=== PATIENT | female | born 1990 | race Caucasian/White ===

== ENCOUNTER 2018-07-11 09:18 | Emergency (ER) | payer BC, SELFPAY ==
--- OUTSIDE RECORDS SUMMARY | 2018-07-11 09:28 | XMS REPORT ---
:1990 [facility] Address [address] [place] [address] Dr. Waters [address] [place] [id number] Care Team Providers Name Role Phone Unavailable Unavailable Unavailable Problems This patient has no known problems. Allergies, Adverse Reactions, Alerts This patient has no known allergies or adverse reactions. Medications This patient has no known medications.
--- NOTE | 2018-07-11 09:47 | EDPHYS ---
Physician Documentation [facility] Name: Marilyn Cardoza Age: 28 yrs Sex: Female : 1990 Arrival Date: 07/11/2018 Time: 09:21 Bed 20 Private MD: None, None ED Physician Marshal Gutierrez HPI: 07/11 10:00 This 28 yrs old Female presents to ER via Ambulatory with complaints of Flu snw Symptoms. 10:00 Onset: The symptoms/episode began/occurred gradually, 3 day(s) ago, and became snw persistent. Associated signs and symptoms: Pertinent positives: congestion, dysuria, nasal discharge, sore throat, Pertinent negatives: fever. Modifying factors: The patient symptoms are alleviated by nothing. It is unknown whether or not the patient has had similar symptoms in the past. The patient has not recently seen a physician. 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 - Social history:: Smoking status: Patient/guardian denies using tobacco. - Ebola Screening: : Patient denies exposure to infectious person Patient denies travel to an Ebola-affected area in the 21 days before illness onset. ROS: 09:59 Eyes: Negative for injury, pain, redness, and discharge. snw 09:59 Neck: Negative for injury, pain, and swelling, Cardiovascular: Negative for chest pain, palpitations, and edema. 09:59 Abdomen/GI: Negative for abdominal pain, nausea, vomiting, diarrhea, and constipation, Back: Negative for injury and pain, : Negative for injury, bleeding, discharge, and swelling, + dysuria (taking azo) MS/Extremity: Negative for injury and deformity, Skin: Negative for injury, rash, and discoloration, Neuro: Negative for headache, weakness, numbness, tingling, and seizure, Psych: Negative for depression, anxiety, suicide ideation, homicidal ideation, and hallucinations. 09:59 Constitutional: Positive for body aches, fatigue. 09:59 ENT: Positive for ear pain, hoarseness, sinus congestion. 09:59 Respiratory: Positive for cough. Exam: 09:48 Head/Face: Normocephalic, atraumatic. Eyes: Pupils equal round and reactive to light, snw extra-ocular motions intact. Lids and lashes normal. Conjunctiva and sclera are non-icteric and not injected. Cornea within normal limits. Periorbital areas with no swelling, redness, or edema. Neck: Trachea midline, no thyromegaly or masses palpated, and no cervical lymphadenopathy. Supple, full range of motion without nuchal rigidity, or vertebral point tenderness. No Meningismus. Chest/axilla: Normal chest wall appearance and motion. Nontender with no deformity. No lesions are appreciated. Cardiovascular: Regular rate and rhythm with a normal S1 and S2. No gallops, murmurs, or rubs. Normal PMI, no JVD. No pulse deficits. 09:48 Abdomen/GI: Soft, non-tender, with normal bowel sounds. No distension or tympany. No guarding or rebound. No evidence of tenderness throughout. Back: No spinal tenderness. No costovertebral tenderness. Full range of motion. Skin: Warm, dry with normal turgor. Normal color with no rashes, no lesions, and no evidence of cellulitis. MS/ Extremity: Pulses equal, no cyanosis. Neurovascular intact. Full, normal range of motion. Neuro: Awake and alert, GCS 15, oriented to person, place, time, and situation. Cranial nerves II-XII grossly intact. Motor strength 5/5 in all extremities. Sensory grossly intact. Cerebellar exam normal. Normal gait. Psych: Awake, alert, with orientation to person, place and time. Behavior, mood, and affect are within normal limits. 09:48 Constitutional: The patient appears alert, uncomfortable. 09:48 ENT: External ear(s): are unremarkable, TM's: erythema, that is moderate, on the left, Nose: is normal, Mouth: is normal, Posterior pharynx: erythema, that is mild, Voice: is hoarse. 09:48 Respiratory: the patient does not display signs of respiratory distress, Respirations: normal, Breath sounds: are clear throughout, + cough. Vital Signs: 09:42 BP 112 / 82; Pulse 86; Resp 16; Pulse Ox 100% on R/A; Weight 77.11 kg; Height 5 ft. 4 ss in. (162.56 cm); Pain 3/10; 09:43 Temp 98.5(O); ss 09:42 Body Mass Index 29.18 (77.11 kg, 162.56 cm) MDM: 09:31 Patient medically screened. snw Administered Medications: No medications were administered Disposition: 14:22 Co-signature as Attending Physician, Marshal Gutierrez MD. ma2 Disposition: 07/11/18 09:46 Discharged to Home. Impression: Acute upper respiratory infection, unspecified, Acute serous otitis media, left ear. - Condition is Stable. - Discharge Instructions: Otitis Media, Adult, Upper Respiratory Infection, Adult, Cool Mist Vaporizer, Cough, Adult, Rehydration, Adult. - Prescriptions for Augmentin 875- 125 mg Oral Tablet - take 1 tablet by ORAL route every 12 hours for 10 days; 20 tablet. Zyrtec 10 mg Oral Tablet - take 1 tablet by ORAL route once daily As needed; 20 tablet. Tessalon Perles 100 mg Oral Capsule - take 1 capsule by ORAL route every 8 hours As needed; 15 capsule. - Work release form, Medication Reconciliation Form, Thank You Letter, Antibiotic Education, Prescription Opioid Use form. - Follow up: Emergency Department; When: As needed; Reason: Worsening of condition. Follow up: Private Physician; When: 2 - 3 days; Reason: Recheck today's complaints, Continuance of care, Re-evaluation by your physician. Signatures: Bryanna Odonnell FNP-C XEROX MACHINE ASSEMBLER-Gilma Puentes RN RN ss Alzahri, Mohammad, MD MD ma2 Corrections: (The following items were deleted from the chart) 09:53 09:46 07/11/2018 09:46 Discharged to Home. Impression: Acute upper respiratory ss infection, unspecified; Acute serous otitis media, left ear. Condition is Stable. Forms are Medication Reconciliation Form, Thank You Letter, Antibiotic Education, Prescription Opioid Use. Follow up: Emergency Department; When: As needed; Reason: Worsening of condition. Follow up: Private Physician; When: 2 - 3 days; Reason: Recheck today's complaints, Continuance of care, Re-evaluation by your physician. snw
--- NOTE | 2018-07-11 09:47 | ER ---
Nurse's Notes [facility] Name: Marilyn Cardoza Age: 28 yrs Sex: Female : 1990 Arrival Date: 07/11/2018 Time: 09:21 Bed 20 Private MD: None, None Diagnosis: Acute upper respiratory infection, unspecified;Acute serous otitis media, left ear Presentation: 07/11 09:40 Presenting complaint: Patient states: body aches, L ear pain, congestion and urinary ss frequency that began yesterday. Transition of care: patient was not received from another setting of care. Onset of symptoms was July 10, 2018. Risk Assessment: Do you want to hurt yourself or someone else? Patient reports no desire to harm self or others. Initial Sepsis Screen: Does the patient meet any 2 criteria? No. Patient's initial sepsis screen is negative. Does the patient have a suspected source of infection? No. Patient's initial sepsis screen is negative. Care prior to arrival: None. 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 - Social history:: Smoking status: Patient/guardian denies using tobacco. - Ebola Screening: : Patient denies exposure to infectious person Patient denies travel to an Ebola-affected area in the 21 days before illness onset. Screenin:43 Abuse screen: Denies threats or abuse. Denies injuries from another. Nutritional ss screening: No deficits noted. Tuberculosis screening: Never had TB. Fall Risk None identified. Assessment: 09:43 General: Appears uncomfortable, Behavior is calm, cooperative, Denies fever, feeling ss ill, fatigue, chills. Pain: Complains of pain in GENERALIZED BODY ACHES, SORE THROAT, AND L EAR Pain currently is 3 out of 10 on a pain scale. Is continuous. Neuro: Level of Consciousness is awake, alert, obeys commands, Oriented to person, place, time, situation, Speech is normal. Cardiovascular: Capillary refill < 3 seconds is brisk in bilateral fingers. Respiratory: Reports cough that is Airway is patent Respiratory effort is even, unlabored, Respiratory pattern is regular, symmetrical, Breath sounds are clear bilaterally. GI: Abdomen is non-distended, Reports nausea, vomiting. : Reports URINARY FREQUENCY. EENT: Throat is reddened. Derm: Skin is intact, is healthy with good turgor, Skin is pink, warm \\T\\ dry. normal. Musculoskeletal: Circulation, motion, and sensation intact. Range of motion: intact in all extremities, Swelling absent. Vital Signs: 09:42 BP 112 / 82; Pulse 86; Resp 16; Pulse Ox 100% on R/A; Weight 77.11 kg; Height 5 ft. 4 ss in. (162.56 cm); Pain 3/10; 09:43 Temp 98.5(O); ss 09:42 Body Mass Index 29.18 (77.11 kg, 162.56 cm) ss ED Course: 09:21 Patient arrived in ED. mr 09:21 None, None is Private Physician. mr 09:27 Bryanna Odonnell FNP-C [facility]. snw 09:27 Marshal Gutierrez MD is Attending Physician. snw 09:32 Gilma Arango, ERROL is Primary Nurse. ss 09:41 Triage completed. ss 09:42 Arm band placed on right wrist. ss 09:43 Patient has correct armband on for positive identification. Bed in low position. Call ss light in reach. 09:47 No provider procedures requiring assistance completed. Patient did not have IV access ss during this emergency room visit. Administered Medications: No medications were administered Outcome: 09:46 Discharge ordered by . snw 09:52 Discharged to home ambulatory, with family. ss 09:52 Condition: good 09:52 Discharge instructions given to patient, family, Instructed on discharge instructions, follow up and referral plans. medication usage, Demonstrated understanding of instructions, follow-up care, medications, Prescriptions given X 3. 09:53 Patient left the ED. ss Signatures: Bryanna Odonnell FNP-C LEHR OPERATOR-Csnw Taylor Maguire mr Gilma Arango, RN RN ss
[2018-07-11 09:57] VITALS: BP 112/82; O2SAT 100
[2018-07-11 09:58] VITALS: TEMP 98.5
== END 2018-07-11 09:53 | disposition home or self-care (01) ==
LOC: ER 09:18
DX: H65.02 Acute serous otitis media, left ear (principal); J06.9 Acute upper respiratory infection, unspecified; Z91.040 Latex allergy status; Z91.048 Other nonmedicinal substance allergy status
CPT/HCPCS: 99282

== ENCOUNTER 2019-01-01 10:04 | Emergency (ER) | payer SELFPAY ==
[2019-01-01] MEDS ORDERED: NA CHLORIDE 0.9% 1,000 ML ONE (10:49)
[2019-01-01] MEDS ORDERED: ONDANSETRON 4 MG/2 ML VIAL ONE (10:49)
[2019-01-01] MEDS ORDERED: MORPHINE 4 MG/ML SYR ONE ×2 (10:49→13:51)
[2019-01-01 11:23] LABS: Albumin 3.7 g/dL (3.4-5.0); Basophils % 0.5 % (0-1.3); Bilirubin Direct 0.1 mg/dL (0-0.2); Bilirubin Total 0.5 mg/dL (0.2-1.0); Lymphocytes % 20.8 % (15.3-44.8); MPV 7.2 fL (7.6-11.3); Potassium 3.7 mmol/L (3.5-5.1); Protein, Total 7.5 g/dL (6.4-8.2); RBC Red Blood Cell Count 3.88 M/uL (3.86-4.86)
[2019-01-01 11:50] LABS: Urine Bacteria 20-50 /HPF (<20); Urine Culture Reflex Order REFLEXED; Urine RBC NONE SEEN /HPF (NONE SEEN)
[2019-01-01 12:33] LABS: Urine Blood NEGATIVE (NEG); Urine Glucose NEGATIVE (NEG); Urine Protein 1+ (NEG); Urine Specific Gravity >1.030 (1.005-1.030); Urine pH 5.5 (5.0-7.0)
--- NOTE | 2019-01-01 14:10 | RAD REPORT ---
EXAM DESCRIPTION: CT - Abdomen Pelvis W Contrast - 01/01/2019 1:21 pm CLINICAL HISTORY: ABD PAINabdominal pain COMPARISON: October 2012 CT study TECHNIQUE: Biphasic, helical CT imaging of the abdomen and pelvis was performed following 100 ml non -ionic IV contrast. No oral contrast given. All CT scans are performed using dose optimization technique as appropriate and may include automated exposure control or mA/KV adjustment according to patient size. FINDINGS: No suspicious findings in the lung bases. The liver, spleen, and pancreas show no suspicious findings. Gallbladder is absent. No biliary tree d ilatation. Symmetric renal function is seen with no hydronephrosis or suspicious renal mass. No pyelonephritis o r acute parenchymal process. No bladder abnormalities. No adrenal abnormality. Uterus and ovaries are normal for age. There are small cysts or follicles in the ovaries. No gastric dilatation or wall thickening. No dilated large or small bowel. Broussard of the cecum and asc ending colon are prominent. Right-sided colitis is suspected. Multiple mesenteric lymph nodes are pre sent in the central abdomen and in the right lower quadrant. Appendicitis is not suspected. Mild prom inence of the broussard of the terminal ileum. No free air or pneumatosis. No hernia, mass or bulky lymphadenopathy. No suspicious bony findings. IMPRESSION: Edema and mild wall thickening involving the terminal ileum, cecum and ascending colon. Adjacent mesenteric lymph nodes are present. No acute appendicitis findings. Findings are suspicious for ileitis/ ulcerative colitis or similar in flammatory bowel process. No free air or surgically emergent finding.
--- NOTE | 2019-01-01 14:45 | EDPHYS ---
Physician Documentation [facility] Name: Marilyn Cardoza Age: 28 yrs Sex: Female : 1990 Arrival Date: 01/01/2019 Time: 10:07 Bed 17 Private MD: None, None ED Physician Dm Medellin HPI: 01/01 10:59 This 28 yrs old Female presents to ER via Ambulatory with complaints of pm1 Abdominal Pain, Nausea/Vomiting/Diarrhea. 10:59 The patient presents with abdominal pain that is diffuse. Onset: The symptoms/episode pm1 began/occurred 1 year(s) ago, and became worse 2 week(s) ago. The symptoms do not radiate. Associated signs and symptoms: Pertinent positives: nausea, vomiting, and diarrhea, dysuria, Pertinent negatives: chest pain, fever, shortness of breath. The symptoms are described as achy. Modifying factors: The symptoms are alleviated by nothing, the symptoms are aggravated by urination. Severity of pain: in the emergency department the pain is actually worse. The patient has experienced similar episodes in the past, chronically. The patient has not recently seen a physician. 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 - Social history:: Smoking status: Patient uses tobacco products, denies chronic smoking, but will smoke occasionally. - Ebola Screening: : Patient denies exposure to infectious person Patient denies travel to an Ebola-affected area in the 21 days before illness onset. ROS: 10:59 Constitutional: Negative for fever, chills, and weight loss, Eyes: Negative for injury, pm1 pain, redness, and discharge, ENT: Negative for injury, pain, and discharge, Neck: Negative for injury, pain, and swelling, Cardiovascular: Negative for chest pain, palpitations, and edema, Respiratory: Negative for shortness of breath, cough, wheezing, and pleuritic chest pain. 10:59 Back: Negative for injury and pain. 10:59 MS/Extremity: Negative for injury and deformity, Skin: Negative for injury, rash, and discoloration, Neuro: Negative for headache, weakness, numbness, tingling, and seizure. 10:59 Abdomen/GI: Positive for abdominal pain, nausea, vomiting, and diarrhea, Negative for constipation. 10:59 : Positive for burning with urination, Negative for flank pain, vaginal discharge. Exam: 10:59 Constitutional: This is a well developed, well nourished patient who is awake, alert, pm1 and in no acute distress. Head/Face: Normocephalic, atraumatic. Neck: Trachea midline, no thyromegaly or masses palpated, and no cervical lymphadenopathy. Supple, full range of motion without nuchal rigidity, or vertebral point tenderness. No Meningismus. Chest/axilla: Normal chest wall appearance and motion. Nontender with no deformity. No lesions are appreciated. Cardiovascular: Regular rate and rhythm with a normal S1 and S2. No gallops, murmurs, or rubs. Normal PMI, no JVD. No pulse deficits. Respiratory: Lungs have equal breath sounds bilaterally, clear to auscultation and percussion. No rales, rhonchi or wheezes noted. No increased work of breathing, no retractions or nasal flaring. 10:59 Back: No spinal tenderness. No costovertebral tenderness. Full range of motion. Skin: Warm, dry with normal turgor. Normal color with no rashes, no lesions, and no evidence of cellulitis. 10:59 MS/ Extremity: Pulses equal, no cyanosis. Neurovascular intact. Full, normal range of motion. 10:59 Abdomen/GI: Inspection: abdomen appears normal, Bowel sounds: normal, Palpation: soft, mild abdominal tenderness, in the right lower quadrant and left lower quadrant, mass, is not appreciated, rebound tenderness, is not appreciated. 10:59 Musculoskeletal/extremity: Extremities: all appear grossly normal, with no appreciated pain with palpation. 10:59 Neuro: Orientation: is normal, Motor: is normal, moves all fours. Vital Signs: 10:28 BP 119 / 85; Pulse 93; Resp 16; Temp 98.4(O); Pulse Ox 99% on R/A; Weight 77.11 kg; ss Height 5 ft. 5 in. (165.10 cm); Pain 5/10; 10:59 BP 113 / 93; Pulse 80; Resp 16; Pulse Ox 100% ; bp 12:12 BP 106 / 76; Pulse 67; Resp 17; Pulse Ox 100% ; bp 13:34 BP 121 / 86; Pulse 75; Resp 16; Temp 98.0(O); Pulse Ox 100% ; lt1 14:30 BP 112 / 75; Pulse 64; Resp 17; Pulse Ox 100% ; bp 15:30 BP 115 / 84; Pulse 79; Resp 16; Pulse Ox 100% ; bp 16:10 BP 108 / 77; Pulse 67; Resp 16; Temp 98.5; Pulse Ox 100% ; bp 10:28 Body Mass Index 28.29 (77.11 kg, 165.10 cm) ss MDM: 10:25 Patient medically screened. pm1 14:25 Data reviewed: vital signs. Data interpreted: Pulse oximetry: on room air is 100 %. pm1 Interpretation: normal. Counseling: I had a detailed discussion with the patient and/or guardian regarding: the historical points, exam findings, and any diagnostic results supporting the discharge/admit diagnosis, lab results, radiology results, the need for outpatient follow up, to return to the emergency department if symptoms worsen or persist or if there are any questions or concerns that arise at home. 01/01 10:38 Order name: Basic Metabolic Panel; Complete Time: 11:35 pm1 01/01 10:38 Order name: CBC with Diff; Complete Time: 11:35 pm1 01/01 10:38 Order name: Creatinine for Radiology; Complete Time: 11:35 pm1 01/01 10:38 Order name: Hepatic Function; Complete Time: 11:35 pm1 01/01 10:38 Order name: Lipase; Complete Time: 11:35 pm1 01/01 10:38 Order name: Urine Microscopic Only; Complete Time: 11:57 pm1 01/01 11:18 Order name: Urine Dipstick--Ancillary (enter results); Complete Time: 12:36 bd 01/01 11:18 Order name: Urine --Ancillary (enter results); Complete Time: 12:36 bd 01/01 11:52 Order name: Urine Culture EDMS 01/01 12:37 Order name: CT Abd/Pelvis - IV Contrast Only; Complete Time: 14:19 pm1 01/01 10:38 Order name: IV Saline Lock; Complete Time: 10:58 pm1 01/01 10:38 Order name: Labs collected and sent; Complete Time: 10:58 pm1 01/01 10:38 Order name: Urine Dipstick-Ancillary (obtain specimen); Complete Time: 10:59 pm1 01/01 10:58 Order name: Urine Test (obtain specimen); Complete Time: 10:59 bp Administered Medications: 10:50 Drug: NS 0.9% 1000 ml Route: IV; Rate: 1000 ml; Site: right antecubital; bp 10:50 Drug: Zofran 4 mg Route: IVP; Site: right antecubital; bp 14:02 Follow up: Response: Nausea is decreased bp 10:50 Drug: morphine 4 mg Route: IVP; Site: right antecubital; bp 14:02 Follow up: Response: No adverse reaction bp 14:02 Drug: morphine 4 mg Route: IVP; Site: left antecubital; bp 14:03 Follow up: Response: Pain is decreased bp 15:00 Drug: Ciprofloxacin 500 mg Route: PO; bp 16:07 Follow up: Response: No adverse reaction bp 15:00 Drug: Flagyl 500 mg Volume: 100 ml; Route: IVPB; Rate: 200 ml/hr; Infused Over: 30 bp mins; Site: left antecubital; 16:07 Follow up: IV Status: Completed infusion; IV Intake: 100ml bp Disposition: 16:30 Co-signature as Attending Physician, Dm Medellin MD. rn Disposition: 01/01/19 14:45 Discharged to Home. Impression: Unspecified abdominal pain, Colitis, Urinary tract infection, site not specified. - Condition is Stable. - Discharge Instructions: Abdominal Pain, Adult, Urinary Tract Infection, Adult, Colitis. - Prescriptions for Zofran ODT 4 mg Oral tablet,disintegrating - place 1 tablet by TRANSLINGUAL route every 8 hours As needed; 20 tablet. Flagyl 500 mg Oral Tablet - take 1 tablet by ORAL route every 8 hours for 10 days; 30 tablet. Tylenol- Codeine #3 300-30 mg Oral Tablet - take 2 tablets by ORAL route every 6 hours As needed; 20 tablet. Cipro 500 mg Oral Tablet - take 1 tablet by ORAL route every 12 hours for 10 days; 20 tablet. - Work release form, Medication Reconciliation Form, Thank You Letter, Antibiotic Education, Prescription Opioid Use form. - Follow up: Emergency Department; When: As needed; Reason: Worsening of condition. Follow up: Private Physician; When: 2 - 3 days; Reason: Recheck today's complaints, Continuance of care, Re-evaluation by your physician. - Problem is new. - Symptoms have improved. Signatures: Dispatcher [employer] EDDm Chavez MD MD rn Smirch, Shelby, RN RN ss Ronald Rosales, MOLDED GRID AND PARTS INSPECTOR MOLDED GRID AND PARTS INSPECTOR pm1 Alex Herman RN RN bp Corrections: (The following items were deleted from the chart) 16:11 14:45 01/01/2019 14:45 Discharged to Home. Impression: Unspecified abdominal bp painColitis; Urinary tract infection, site not specified. Condition is Stable. Forms are Medication Reconciliation Form, Thank You Letter, Antibiotic Education, Prescription Opioid Use. Follow up: Emergency Department; When: As needed; Reason: Worsening of condition. Follow up: Private Physician; When: 2 - 3 days; Reason: Recheck today's complaints, Continuance of care, Re-evaluation by your physician. Problem is new. Symptoms have improved. pm1
--- NOTE | 2019-01-01 14:45 | ER ---
Nurse's Notes [facility] Name: Marilyn Cardoza Age: 28 yrs Sex: Female : 1990 Arrival Date: 01/01/2019 Time: 10:07 Bed 17 Private MD: None, None Diagnosis: Colitis;Unspecified abdominal pain;Urinary tract infection, site not specified Presentation: 01/01 10:12 Presenting complaint: Patient states: abd pain since beginning of December. Patient ss reports a history of chronic abd problems, but reports her GI specialist is not helping her anymore. PT was seen at the beginning of December at [facility] and was told she had a UTI and inflamed intestines. Transition of care: patient was not received from another setting of care. Onset of symptoms is unknown. Risk Assessment: Do you want to hurt yourself or someone else? Patient reports no desire to harm self or others. Initial Sepsis Screen: Does the patient meet any 2 criteria? No. Patient's initial sepsis screen is negative. Does the patient have a suspected source of infection? Yes: Dysuria/Frequency/Urgency/UTI. Care prior to arrival: None. 10:12 Acuity: HERMINIA 3 ss 10:12 Method Of Arrival: Ambulatory ss Triage Assessment: 10:27 General: Appears in no apparent distress. comfortable, Behavior is cooperative, bp appropriate for age, anxious. Pain: Complains of pain in abdomen. EENT: No deficits noted. Neuro: No deficits noted. Cardiovascular: No deficits noted. Respiratory: No deficits noted. GI: Abdomen is non-distended, Reports diarrhea, nausea, vomiting. : No signs and/or symptoms were reported regarding the genitourinary system. Derm: No deficits noted. Musculoskeletal: No deficits noted. 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 - Social history:: Smoking status: Patient uses tobacco products, denies chronic smoking, but will smoke occasionally. - Ebola Screening: : Patient denies exposure to infectious person Patient denies travel to an Ebola-affected area in the 21 days before illness onset. Screenin:28 Abuse screen: Denies threats or abuse. Denies injuries from another. Nutritional bp screening: No deficits noted. Tuberculosis screening: No symptoms or risk factors identified. Fall Risk None identified. Assessment: 10:30 General: SEE TRIAGE NOTE. bp 10:30 GI: Bowel sounds present X 4 quads. Abd is soft X 4 quads. bp 11:30 Reassessment: Patient and/or family updated on plan of care and expected duration. Pain bp level reassessed. Patient is alert, oriented x 3, equal unlabored respirations, skin warm/dry/pink. 13:30 Reassessment: ALL CURRENT ORDERS COMPLETED, RESULTS PENDING. bp 14:30 Reassessment: D/C ON HOLD FOR IV ABX COMPLETION. bp 16:08 Reassessment: PT D/C HOME AMBULATORY WITH FAMILY, DX WITH COLITIS. bp Vital Signs: 10:28 BP 119 / 85; Pulse 93; Resp 16; Temp 98.4(O); Pulse Ox 99% on R/A; Weight 77.11 kg; ss Height 5 ft. 5 in. (165.10 cm); Pain 5/10; 10:59 BP 113 / 93; Pulse 80; Resp 16; Pulse Ox 100% ; bp 12:12 BP 106 / 76; Pulse 67; Resp 17; Pulse Ox 100% ; bp 13:34 BP 121 / 86; Pulse 75; Resp 16; Temp 98.0(O); Pulse Ox 100% ; lt1 14:30 BP 112 / 75; Pulse 64; Resp 17; Pulse Ox 100% ; bp 15:30 BP 115 / 84; Pulse 79; Resp 16; Pulse Ox 100% ; bp 16:10 BP 108 / 77; Pulse 67; Resp 16; Temp 98.5; Pulse Ox 100% ; bp 10:28 Body Mass Index 28.29 (77.11 kg, 165.10 cm) ss ED Course: 10:07 Patient arrived in ED. mr 10:07 None, None is Private Physician. mr 10:11 Alex Herman, ERROL is Primary Nurse. bp 10:16 Ronald Rosales, KENNY is PHCP. pm1 10:16 Dm Medellin MD is Attending Physician. pm1 10:28 Patient has correct armband on for positive identification. Bed in low position. Call bp light in reach. Side rails up X2. 10:28 Arm band placed on right wrist. ss 10:36 Triage completed. bp 10:50 Inserted saline lock: 22 gauge in right antecubital area, using aseptic technique. bp 10:57 Inserted saline lock: 20 gauge in left antecubital area, using aseptic technique. Blood bp collected. 13:20 CT Abd/Pelvis - IV Contrast Only In Process Unspecified. EDMS 16:09 No provider procedures requiring assistance completed. IV discontinued, intact, bp bleeding controlled, No redness/swelling at site. Pressure dressing applied. Administered Medications: 10:50 Drug: NS 0.9% 1000 ml Route: IV; Rate: 1000 ml; Site: right antecubital; bp 10:50 Drug: Zofran 4 mg Route: IVP; Site: right antecubital; bp 14:02 Follow up: Response: Nausea is decreased bp 10:50 Drug: morphine 4 mg Route: IVP; Site: right antecubital; bp 14:02 Follow up: Response: No adverse reaction bp 14:02 Drug: morphine 4 mg Route: IVP; Site: left antecubital; bp 14:03 Follow up: Response: Pain is decreased bp 15:00 Drug: Ciprofloxacin 500 mg Route: PO; bp 16:07 Follow up: Response: No adverse reaction bp 15:00 Drug: Flagyl 500 mg Volume: 100 ml; Route: IVPB; Rate: 200 ml/hr; Infused Over: 30 bp mins; Site: left antecubital; 16:07 Follow up: IV Status: Completed infusion; IV Intake: 100ml bp Intake: 16:07 IV: 100ml; Total: 100ml. bp Outcome: 14:45 Discharge ordered by MD. pm1 16:08 Discharged to home ambulatory, with family. bp 16:08 Condition: stable 16:08 Discharge instructions given to patient, Instructed on discharge instructions, follow up and referral plans. medication usage, Demonstrated understanding of instructions, follow-up care, medications, Prescriptions given X 4. 16:11 Patient left the ED. bp Signatures: Dispatcher [employer] [facility] Taylor Maguire Gilma Gerber, RN RN ss Ronald Rosales, SHEET METAL DUCT INSTALLER APPRENTICE SHEET [employer]AL DUCT INSTALLER APPRENTICE pm1 Alex Herman RN RN bp Tran, Leah lt1 Corrections: (The following items were deleted from the chart) 10:37 10:36 Care prior to arrival: None. bp bp 10:37 10:36 Initial Sepsis Screen: Does the patient meet any 2 criteria? No. Patient's bp initial sepsis screen is negative. Does the patient have a suspected source of infection? No. Patient's initial sepsis screen is negative. bp 10:37 10:36 Risk Assessment: Do you want to hurt yourself or someone else? Patient reports no bp desire to harm self or others. bp 10:37 10:36 Onset of symptoms is unknown. bp bp 10:37 10:36 Transition of care: patient was not received from another setting of care. bp bp 10:37 10:36 Acuity: HERMINIA 3 bp bp 10:37 10:36 Method Of Arrival: Ambulatory bp bp 10:59 10:27 GI: Abdomen is non-distended, bp bp
[2019-01-01] MEDS ORDERED: CIPROFLOXACIN HCL 500 MG TAB ONE (14:55)
[2019-01-01] MEDS ORDERED: METRONIDAZOLE 500mg IVPB 500 MG/100 ML BAG IV ONE (14:55)
[2019-01-01 16:38] VITALS: O2SAT 100
[2019-01-01 16:44] VITALS: BP 108/77; TEMP 98.5
== END 2019-01-01 16:11 | disposition home or self-care (01) ==
LOC: ER 10:04
DX: K52.9 Noninfective gastroenteritis and colitis, unspecified (principal); N39.0 Urinary tract infection, site not specified; Z72.0 Tobacco use; Z91.040 Latex allergy status; Z91.048 Other nonmedicinal substance allergy status
CPT/HCPCS: 36415; 74177; 80048; 80076; 81003; 81015; 81025; 83690; 85025; 87086; 87088; 99284; J2405; J7030; Q9967

== ENCOUNTER 2021-03-29 09:20 | Emergency (ER) | payer BC, SELFPAY ==
--- OUTSIDE RECORDS SUMMARY | 2021-03-29 09:25 | XMS REPORT | Continuity of Care Document ---
:1990 Author Organization [facility] Address [facility] [place] [address] Care Team Providers Name Role Phone Patito Almonte MD Primary Care Provider Allergies Not on Fileafter 03/29/2020 Medications Not on fileafter 03/29/2020 Active Problems Not on fileafter 03/29/2020 Social History Tobacco Use Types Packs/Day Years Used Date Never Assessed Sex Assigned at Date Recorded Not on file after 03/29/2020 Last Filed Vital Signs Not on fileafter 03/29/2020 Plan of Treatment Not on fileafter 03/29/2020 Results Not on fileafter 03/29/2020 Care Teams Project Admin Relationship Specialty Start Date End Date Patito Almonte MD PCP - General Gastroenterology, 11/21/[address] [place] [address] Hepatology and Nutrition [place], [place] [id number] after 03/29/2020
--- OUTSIDE RECORDS SUMMARY | 2021-03-29 09:29 | XMS REPORT | Continuity of Care Document ---
:1990 Author Organization [facility] t Address [address] [place] [address] [address]. [address]. [address] [place] [address] Care Team Providers Name Role Phone Suzy LEON Primary Care Physician JIMMY Attending Clinician Unavailable Raj Arita MD Attending Clinician RAJ ARITA Attending Clinician Unavailable Doctor Unassigned, Name Attending Clinician Unavailable 2, Lab Attending Clinician Unavailable Jimmy HOLLAND Attending Clinician Pranav MOONEY Attending Clinician Unavailable DR SARWAT Attending Clinician Unavailable GRAMM, A Attending Clinician Unavailable Tiera PAGE, A Attending Clinician Maude Rojas MD Attending Clinician Lindsay Whyte MD Attending Clinician Mamadou NORTON Attending Clinician Unavailable Mak LEON Attending Clinician MAK Attending Clinician Unavailable Lindsay WHYTE Attending Clinician Unavailable Penny PAGE Attending Clinician Maude ROJAS Attending Clinician Unavailable DR SARWAT Admitting Clinician Unavailable Payers Payer Name Policy Type Policy Number Effective Date Expiration Date [facility] [id number] 2019 00:00:00 Advance Directives Directive Decision Effective Termination Comments Source Date Date Healthcare Agents on N/A [facility] Agent Medical RelationshipCommunicationThea Branch [facility] [phone] (Home) [facility] [phone] (Home) Problems Condition Condition Condition Status Onset Resolution Last Treating Co mments Source Name Details Category Date Date Treatment Clinician Date Nexplanon Nexplanon Disease Active Uni vers in place in place 5 ity of 00:00: [place] 00 Medical Branch Generalize Generalize Disease Active U nivers d anxiety d anxiety 3- ity of disorder disorder 00:00: [place] 00 Medical Branch Depression Depression Disease Active U nivers 3 ity of 00:00: [place] 00 Medical Branch Nexplanon Nexplanon Disease Active 2017-03 Uni vers removal removal 0-30 ity of 00:00: [place] 00 Medical Branch Intestinal Intestinal Disease Active Overview : Univers metaplasia metaplasia -30 Added it y of of gastric of gastric 00:00: automatic [place] mucosa mucosa 00 ally from Medical request Branch for surgery [id number] Abdominal Abdominal Disease Active Overview: Univers pain, pain, 5-23 Added ity of epigastric epigastric 00:00: automatic [place] 00 ally from Medical request Branch for surgery [id number] Nausea and Nausea and Disease Active Overview : Univers vomiting vomiting 5-23 Added ity of in adult in adult 00:00: automatic [place] as 00 ally from Medical request Branch for surgery [id number] Calculus Calculus Disease Active Overview: Un tato of of 7-18 Added ity of gallbladde gallbladde 00:00: automatic [place] r without r without 00 ally from M edical cholecysti cholecysti request B ranch tis tis for without without surgery obstructio obstructio [id number] n n Nexplanon Nexplanon Disease Active Uni vers in place in place 2 ity of 00:00: [place] 00 Medical Branch Allergies, Adverse Reactions, Alerts Allergy Allergy Status Severity Reaction(s) Onset Inactive Treating Comm ents Source Name Type Date Date Clinician Latex Propensi Active Rash 2013-03 Univers ty to 03-19 ity of adverse 00:00: [place] reaction 00 Medical s Branch LATEX DRUG Active ITCHING 2013-03 Univers INGREDI 03-19 ity of 00:00: [place] 00 Medical Branch Social History Social Habit Start Date Stop Date Quantity Comments Source Exposure to Not sure University of SARS-CoV-2 (event) [facility] Tobacco use and 2020-07-23 2020-07-23 Never used Universit y of exposure 00:00:00 00:00:00 [facility] Cigarettes smoked 2020-07-23 2020-07-23 Univers ity of current (pack per 00:00:00 00:00:00 [place] ) - Reported Branch Alcohol intake 2020-07-23 2020-07-23 Current drinker Unive rsity of 00:00:00 00:00:00 of alcohol [facility] (finding) [place] Alcohol Comment 2020-07-13 2020-07-13 rare Universit y of 00:00:00 00:00:00 [facility] Tobacco Comment 2016-10-06 2016-10-06 pt no longer Univers ity of 00:00:00 00:00:00 smoker [facility] History of tobacco 2013-07-04 Cigarette Smoker University of use 00:00:00 [facility] Sex Assigned At [birth year] MD [place] on 00:00:00 00:00:00 Smoking Status Start Date Stop Date Source Former smoker 2020-07-23 00:00:00 2020-07-23 00:00:00 Universi ty of [facility] Medications Ordered Filled Start Stop Current Ordering Indication Dosage Frequency Signature Comments Components Source Medication Medication Date Date Medication? Clinician (SIG) Name Name etonogestre 2020- No [id number] 68mg Univers L 07-23- ity of (NEXPLANON) 14:45: 13:36 [place] implant 68 00 :00 Medical mg [place] etonogestre 2020- No [id number] 68mg 68 mg, Univers L 07-23 Subdermal, ity of (NEXPLANON) 14:45: 13:36 ONCE NOW, [place] implant 68 00 :00 1 dose, Medica l mg [place] 07/23/20 at 0945, Routine
Use approved by: [employer] etonogestre 2020- No [id number] 68mg Univers L 07-23- ity of (NEXPLANON) 14:45: 13:36 [place] implant 68 00 :00 Medical [facility] etonogestre 2020- No [id number] 68mg 68 mg, Univers L 07-2313 Subdermal, ity of (NEXPLANON) 14:45: 13:36 ONCE NOW, [place] implant 68 00 :00 1 dose, Medica l mg [place] Branch 07/23/20 at 0945, Routine
Use approved by: [employer] ergocalcife Yes Take by Un tato rol, 5-03 mouth. ity of vitamin D2, 13:44: [place] (VITAMIN D 11 Medical ORAL) [place] ergocalcife Yes Take by Un tato rol, 5-03 mouth. ity of vitamin D2, 13:44: [place] (VITAMIN D 11 Medical ORAL) [place] ergocalcife Yes Take by Un tato rol, 5-03 mouth. ity of vitamin D2, 13:44: [place] (VITAMIN D 11 Medical ORAL) [place] ergocalcife Yes Take by Un tato rol, 5-03 mouth. ity of vitamin D2, 13:44: [place] (VITAMIN D 11 Medical ORAL) [place] ergocalcife Yes Take by Un tato rol, 5-03 mouth. ity of vitamin D2, 13:44: [place] (VITAMIN D 11 Medical ORAL) [place] ergocalcife Yes Take by Un tato rol, 5-03 mouth. ity of vitamin D2, 13:44: [place] (VITAMIN D 11 Medical ORAL) [place] ergocalcife Yes Take by Un tato rol, 5-03 mouth. ity of vitamin D2, 13:44: [place] (VITAMIN D 11 Medical ORAL) [place] clotrimazol Yes [id number] Apply to Univers e 1 % 5-03 area(s) at ity of topical 00:00: bedtime. [place] cream [facility] clotrimazol Yes [id number] Apply to Univers e 1 % 5-03 area(s) at ity of topical 00:00: bedtime. [place] cream [facility] clotrimazol Yes [id number] Apply to Univers e 1 % 5-03 area(s) at ity of topical 00:00: bedtime. [place] cream [facility] clotrimazol Yes [id number] Apply to Univers e 1 % 5-03 area(s) at ity of topical 00:00: bedtime. [place] [address] Medical Branch propranoloL Yes TAKE 1/2 Un tato 10 mg 2-10 TO 2 ity of tablet 00:00: TABLETS BY [place] [address] [facility] TWICE [place] DAILY NEEDED FOR ANXIETY ARIPiprazol 0 Yes TAKE 1 Univ ers e 10 mg 2-10 TABLET BY ity of tablet 00:00: [place] [address] EVERY DAY Medical AFTER Branch DINNER DIRECTED propranoloL 0 Yes TAKE 1/2 Un tato 10 mg 2-10 TO 2 ity of tablet 00:00: TABLETS BY [place] [address] MOUTH Medical TWICE [place] DAILY NEEDED FOR ANXIETY ARIPiprazol Yes TAKE 1 Univ ers e 10 mg 2-10 TABLET BY ity of tablet 00:00: [place] [address] EVERY DAY Medical AFTER Branch DINNER DIRECTED propranoloL 0 Yes TAKE 1/2 Un tato 10 mg 2-10 TO 2 ity of tablet 00:00: TABLETS BY [place] [address] [facility] TWICE [place] DAILY NEEDED FOR ANXIETY ARIPiprazol Yes TAKE 1 Univ ers e 10 mg 2-10 TABLET BY ity of tablet 00:00: [place] [address] EVERY DAY Medical AFTER Branch DINNER DIRECTED propranoloL 0 Yes TAKE 1/2 Un tato 10 mg 2-10 TO 2 ity of tablet 00:00: TABLETS BY [address] TWICE [place] DAILY NEEDED FOR ANXIETY ARIPiprazol 0 Yes TAKE 1 Univ ers e 10 mg 2-10 TABLET BY ity of tablet 00:00: [place] [address] EVERY DAY Medical AFTER Branch DINNER DIRECTED propranoloL 2020-0 Yes TAKE 1/2 Un tato 10 mg 2-10 TO 2 ity of tablet 00:00: TABLETS BY [place] [address] MOUTH Medical TWICE [place] DAILY NEEDED FOR ANXIETY ARIPiprazol 0 Yes TAKE 1 Univ ers e 10 mg 2-10 TABLET BY ity of tablet 00:00: [place] [address] EVERY DAY Medical AFTER Branch DINNER DIRECTED propranoloL 0 Yes TAKE 1/2 Un tato 10 mg 2-10 TO 2 ity of tablet 00:00: TABLETS BY [place] [address] [facility] TWICE [place] DAILY NEEDED FOR ANXIETY ARIPiprazol 2020-0 Yes TAKE 1 Univ ers e 10 mg 2-10 TABLET BY ity of tablet 00:00: MOUTH [place] 00 EVERY DAY Medical AFTER Branch DINNER DIRECTED propranoloL Yes TAKE 1/2 Un tato 10 mg 2-10 TO 2 ity of tablet 00:00: TABLETS BY 00 MOUTH Medical TWICE Branch DAILY NEEDED FOR ANXIETY ARIPiprazol Yes TAKE 1 Univ ers e 10 mg 2-10 TABLET BY ity of tablet 00:00: MOUTH 00 EVERY DAY Medical AFTER Branch DINNER DIRECTED iohexol 2019-03 2020- No 120mL 120 mL, Unive rs (OMNIPAQUE 1-13 - Intravenou it y of 350 15:00: 14:53 s, ONCE, 1 [place] BULK-150 00 :00 dose, Fri Medica l mL) 01/24/20 Branch injection at 0900, 120 mL Routine MULTIVITAMI Yes Take by Un tato N ORAL 9-17 mouth. ity of 18:50: [place] 25 Medical Branch ergocalcife 2020-0 Yes Take by Un tato rol, 9-17 mouth. ity of vitamin D2, 18:50: [place] (VITAMIN D 25 Medical ORAL) Branch MULTIVITAMI 2019-0 Yes Take by Un tato N ORAL 9-17 mouth. ity of 18:50: [place] 25 Medical Branch ergocalcife 2020-0 Yes Take by Un tato rol, 9-17 mouth. ity of vitamin D2, 18:50: [place] (VITAMIN D 25 Medical ORAL) Branch MULTIVITAMI 2020-0 Yes Take by Un tato N ORAL 9-17 mouth. ity of 18:50: [place] 25 Medical Branch ergocalcife 2020-0 Yes Take by Un tato rol, 9-17 mouth. ity of vitamin D2, 18:50: [place] (VITAMIN D 25 Medical ORAL) Branch MULTIVITAMI 2020-0 Yes Take by Un tato N ORAL 9-17 mouth. ity of 18:50: [place] 25 Medical Branch ergocalcife 2020-0 Yes Take by Un tato rol, 9-17 mouth. ity of vitamin D2, 18:50: [place] (VITAMIN D 25 Medical ORAL) Branch MULTIVITAMI 2020-0 Yes Take by Un tato N ORAL 9-17 mouth. ity of 18:50: [place] 25 Medical Branch ergocalcife 2020-0 Yes Take by Un tato rol, 9-17 mouth. ity of vitamin D2, 18:50: [place] (VITAMIN D 25 Medical ORAL) Branch MULTIVITAMI 2020-0 Yes Take by Un tato N ORAL 9-17 mouth. ity of 18:50: [place] 25 Medical Branch ergocalcife 2020-0 Yes Take by Un tato rol, 9-17 mouth. ity of vitamin D2, 18:50: [place] (VITAMIN D 25 Medical ORAL) Branch MULTIVITAMI 2020-0 Yes Take by Un tato N ORAL 9-17 mouth. ity of 18:50: [place] 25 Medical Branch MULTIVITAMI 2020-0 Yes Take by Un tato N ORAL 9-17 mouth. ity of 18:50: [place] 25 Medical Branch MULTIVITAMI 2020-0 Yes Take by Un tato N ORAL 9-17 mouth. ity of 18:50: [place] 25 Medical Branch MULTIVITAMI 2020-0 Yes Take by Un tato N ORAL 9-17 mouth. ity of 18:50: [place] 25 Medical Branch MULTIVITAMI 2020-0 Yes Take by Un tato N ORAL 9-17 mouth. ity of 18:50: [place] 25 Medical Branch MULTIVITAMI 2020-0 Yes Take by Un tato N ORAL 9-17 mouth. ity of 18:50: [place] 25 Medical Branch MULTIVITAMI 2020-0 Yes Take by Un tato N ORAL 9-17 mouth. ity of 18:50: [place] 25 Medical Branch LOESTRIN FE 2020-0 Yes [id number] 1{tbl} Take 1 Univers 1 mg-20 mcg 9-17 tablet by ity of (21)/75 mg 00:00: mouth [place] (7) tablet 00 daily. Medical Branch LOESTRIN FE 2020-0 Yes [id number] 1{tbl} Take 1 Univers 1 mg-20 mcg 9-17 tablet by ity of (21)/75 mg 00:00: mouth [place] (7) tablet 00 daily. Medical Branch LOESTRIN FE 2020-0 Yes [id number] 1{tbl} Take 1 Univers 1 mg-20 mcg 9-17 tablet by ity of (21)/75 mg 00:00: mouth [place] (7) tablet 00 daily. Medical Branch LOESTRIN FE 2020-0 Yes [id number] 1{tbl} Take 1 Univers 1 mg-20 mcg 9-17 tablet by ity of (21)/75 mg 00:00: mouth [place] (7) tablet 00 daily. [facility] LOESTRIN FE Yes [id number] 1{tbl} Take 1 Univers 1 mg-20 mcg 9-17 tablet by ity of (21)/75 mg 00:00: mouth [place] (7) tablet 00 daily. [facility] LOESTRIN FE Yes [id number] 1{tbl} Take 1 Univers 1 mg-20 mcg 9-17 tablet by ity of (21)/75 mg 00:00: mouth [place] (7) tablet 00 daily. [facility] LOESTRIN FE 2020- No [id number] 1{tbl} Take 1 Univers 1 mg-20 mcg 9-17 05-03 tablet by it y of (21)/75 mg 00:00: 00:00 mouth [place] (7) tablet 00 :00 daily. [facility] LOESTRIN FE 2020- No [id number] 1{tbl} Take 1 Univers 1 mg-20 mcg 9-17 05-03 tablet by it y of (21)/75 mg 00:00: 00:00 mouth [place] (7) tablet 00 :00 daily. [facility] LOESTRIN FE 2020- No [id number] 1{tbl} Take 1 Univers 1 mg-20 mcg 9-17 05-03 tablet by it y of (21)/75 mg 00:00: 00:00 mouth [place] (7) tablet 00 :00 daily. [facility] SERTraline 2019-0 Yes TK 1 T PO Un tato 50 mg 8-27 QD UTD ity of tablet 00:00: [address] [facility] Branch SERTraline 2020-0 Yes TK 1 T PO Un tato 50 mg 8-27 QD UTD ity of tablet 00:00: 00 [facility] SERTraline 2020-0 Yes TK 1 T PO Un tato 50 mg 8-27 QD UTD ity of tablet 00:00: 00 [facility] SERTraline 2020-0 Yes TK 1 T PO Un tato 50 mg 8-27 QD UTD ity of tablet 00:00: 00 [facility] SERTraline 2020-0 Yes TK 1 T PO Un tato 50 mg 8-27 QD UTD ity of tablet 00:00: 00 Medical Branch SERTraline 2020-0 Yes TK 1 T PO Un tato 50 mg 8-27 QD UTD ity of tablet 00:00: [place] [facility] SERTraline 2020-0 Yes TK 1 T PO Un tato 50 mg 8-27 QD UTD ity of tablet 00:00: [place] Medical [facility] SERTraline 2020-0 Yes TK 1 T PO Un tato 50 mg 8-27 QD UTD ity of tablet 00:00: [place] Medical [facility] SERTraline 2020-0 Yes TK 1 T PO Un tato 50 mg 8-27 QD UTD ity of tablet 00:00: [place] [facility] SERTraline 2020-0 Yes TK 1 T PO Un tato 50 mg 8-27 QD UTD ity of tablet 00:00: [place] Medical Branch SERTraline 2020-0 Yes TK 1 T PO Un tato 50 mg 8-27 QD UTD ity of tablet 00:00: [place] Medical [facility] SERTraline 2020-0 Yes TK 1 T PO Un tato 50 mg 8-27 QD UTD ity of tablet 00:00: [place] Medical [facility] SERTraline 2020-0 Yes TK 1 T PO Un tato 50 mg 8-27 QD UTD ity of tablet 00:00: [place] Medical Branch Nitrofurant 2020-0 Yes [id number] 100mg Take 1 Univers oin&Nit. 7-20 capsule by ity o f Macrocryst 00:00: mouth 2 [place] 100 mg 00 (two) Medical capsule times Branch daily with meals. Nitrofurant 2020-0 Yes [id number] 100mg Take 1 Univers oin&Nit. 7-20 capsule by ity o f Macrocryst 00:00: mouth 2 [place] 100 mg 00 (two) Medical capsule times Branch daily with meals. Nitrofurant 2020-0 Yes [id number] 100mg Take 1 Univers oin&Nit. 7-20 capsule by ity o f Macrocryst 00:00: mouth 2 [place] 100 mg 00 (two) Medical capsule times Branch daily with meals. Nitrofurant 2020-0 Yes [id number] 100mg Take 1 Univers oin&Nit. 7-20 capsule by ity o f Macrocryst 00:00: mouth 2 [place] 100 mg 00 (two) Medical capsule times Branch daily with meals. Nitrofurant 2020-0 Yes [id number] 100mg Take 1 Univers oin&Nit. 7-20 capsule by ity o f Macrocryst 00:00: mouth 2 [place] 100 mg 00 (two) Medical capsule times Branch daily with meals. Nitrofurant 2020-0 Yes [id number] 100mg Take 1 Univers oin&Nit. 7-20 capsule by ity o f Macrocryst 00:00: mouth 2 [place] 100 mg 00 (two) Medical capsule times Branch daily with meals. Nitrofurant 2020-0 Yes [id number] 100mg Take 1 Univers oin&Nit. 7-20 capsule by ity o f Macrocryst 00:00: mouth 2 [place] 100 mg 00 (two) Medical capsule times Branch daily with meals. Nitrofurant 2020-0 Yes [id number] 100mg Take 1 Univers oin&Nit. 7-20 capsule by ity o f Macrocryst 00:00: mouth 2 [place] 100 mg 00 (two) Medical capsule times Branch daily with meals. Nitrofurant 2020-0 Yes [id number] 100mg Take 1 Univers oin&Nit. 7-20 capsule by ity o f Macrocryst 00:00: mouth 2 [place] 100 mg 00 (two) Medical capsule times Branch daily with meals. Nitrofurant 2020-0 Yes [id number] 100mg Take 1 Univers oin&Nit. 7-20 capsule by ity o f Macrocryst 00:00: mouth 2 [place] 100 mg 00 (two) Medical capsule times Branch daily with meals. Nitrofurant 2020-0 Yes [id number] 100mg Take 1 Univers oin&Nit. 7-20 capsule by ity o f Macrocryst 00:00: mouth 2 [place] 100 mg 00 (two) Medical capsule times Branch daily with meals. Nitrofurant 2020-0 Yes [id number] 100mg Take 1 Univers oin&Nit. 7-20 capsule by ity o f Macrocryst 00:00: mouth 2 [place] 100 mg 00 (two) Medical capsule times Branch daily with meals. Nitrofurant 2020-0 Yes [id number] 100mg Take 1 Univers oin&Nit. 7-20 capsule by ity o f Macrocryst 00:00: mouth 2 [place] 100 mg 00 (two) Medical capsule times Branch daily with meals. Nitrofurant 2020-0 Yes [id number] 100mg Take 1 Univers oin&Nit. 7-20 capsule by ity o f Macrocryst 00:00: mouth 2 [place] 100 mg 00 (two) Medical capsule times Branch daily with meals. Nitrofurant 2020-0 Yes [id number] 100mg Take 1 Univers oin&Nit. 7-20 capsule by ity o f Macrocryst 00:00: mouth 2 [place] 100 mg 00 (two) Medical capsule times Branch daily with meals. Nitrofurant 2020-0 Yes [id number] 100mg Take 1 Univers oin&Nit. 7-20 capsule by ity o f Macrocryst 00:00: mouth 2 [place] 100 mg 00 (two) Medical capsule times Branch daily with meals. Nitrofurant 2020-0 Yes [id number] 100mg Take 1 Univers oin&Nit. 7-20 capsule by ity o f Macrocryst 00:00: mouth 2 [place] 100 mg 00 (two) Medical capsule times Branch daily with meals. Nitrofurant 2020-0 Yes [id number] 100mg Take 1 Univers oin&Nit. 7-20 capsule by ity o f Macrocryst 00:00: mouth 2 [place] 100 mg 00 (two) Medical capsule times Branch daily with meals. Nitrofurant 2020-0 Yes [id number] 100mg Take 1 Univers oin&Nit. 7-20 capsule by ity o f Macrocryst 00:00: mouth 2 [place] 100 mg 00 (two) Medical capsule times Branch daily with meals. Nitrofurant 2020-0 Yes [id number] 100mg Take 1 Univers oin&Nit. 7-20 capsule by ity o f Macrocryst 00:00: mouth 2 [place] 100 mg 00 (two) Medical capsule times Branch daily with meals. cholestyram 2020-0 2020- No [id number] 1{packe Take 1 Univers ine 4 gram 09-16 08-07 t} Packet by ity of packet 00:00: 04:59 mouth 2 [place] 00 :00 (two) Medical times Branch daily for 30 days. cholestyram 2020-0 2020- No [id number] 1{packe Take 1 Univers ine 4 gram 7 08-07 t} Packet by ity of packet 00:00: 04:59 mouth 2 [place] 00 :00 (two) Medical times Branch daily for 30 days. cholestyram 2019-2019- No [id number] 1{packe Take 1 Univers ine 4 gram 7-07 08-07 t} Packet by ity of packet 00:00: 04:59 mouth 2 [place] 00 :00 ([facility]) Medical times Branch daily for 30 days. cholestyram 2019-2019- No [id number] 1{packe Take 1 Univers ine 4 gram 7-07 08-07 t} Packet by ity of packet 00:00: 04:59 mouth 2 [place] 00 :00 ([facility]) Medical times Branch daily for 30 days. cholestyram 2019-2019- No [id number] 1{packe Take 1 Univers ine 4 gram 7-07 08-07 t} Packet by ity of packet 00:00: 04:59 mouth 2 [place] 00 :00 ([facility]) Medical times Branch daily for 30 days. cholestyram 2019-2019- No [id number] 1{packe Take 1 Univers ine 4 gram 7-07 08-07 t} Packet by ity of packet 00:00: 04:59 mouth 2 [place] 00 :00 ([facility]) Medical times Branch daily for 30 days. cholestyram 2019-2019- No [id number] 1{packe Take 1 Univers ine 4 gram 7-07 08-07 t} Packet by ity of packet 00:00: 04:59 mouth 2 [place] 00 :00 ([facility]) Medical times Branch daily for 30 days. cholestyram 2019- No [id number] 1{packe Take 1 Univers ine 4 gram 7-07 08-07 t} Packet by ity of packet 00:00: 04:59 mouth 2 [place] 00 :00 ([facility]) Medical times Branch daily for 30 days. cholestyram 2019- No [id number] 1{packe Take 1 Univers ine 4 gram 7-07 08-07 t} Packet by ity of packet 00:00: 04:59 mouth 2 [place] 00 :00 ([facility]) Medical times Branch daily for 30 days. cholestyram 2019-2019- No [id number] 1{packe Take 1 Univers ine 4 gram 7-07 08-07 t} Packet by ity of packet 00:00: 04:59 mouth 2 [place] 00 :00 ([facility]) Medical times Branch daily for 30 days. cholestyram 2019-0 2019- No [id number] 1{packe Take 1 Univers ine 4 gram 09-16 08-07 t} Packet by ity of packet 00:00: 04:59 mouth 2 [place] 00 :00 (two) Medical times Branch daily for 30 days. ergocalcife 2020-0 2020- No [id number] Take by Univers rol, 3-17 03-17 mouth. ity of vitamin D2, 18:46: 00:00 [place] (VITAMIN D 15 :00 Medical ORAL) Branch ondansetron 2020-0 Yes [id number] 4mg Take 1 Univers (ZOFRAN 3-17 tablet by ity of ODT) 4 mg 00:00: mouth [place] disintegrat 00 every 8 Medic al ing tablet (eight) Branch hours as needed for Nausea and Vomiting (N/V). ondansetron 2020-0 Yes [id number] 4mg Take 1 Univers (ZOFRAN 3-17 tablet by ity of ODT) 4 mg 00:00: mouth [place] disintegrat 00 every 8 Medic al ing tablet (eight) Branch hours as needed for Nausea and Vomiting (N/V). ondansetron 2020-0 Yes [id number] 4mg Take 1 Univers (ZOFRAN 3-17 tablet by ity of ODT) 4 mg 00:00: mouth [place] disintegrat 00 every 8 Medic al ing tablet (eight) Branch hours as needed for Nausea and Vomiting (N/V). ondansetron 2020-0 Yes [id number] 4mg Take 1 Univers (ZOFRAN 3-17 tablet by ity of ODT) 4 mg 00:00: mouth [place] disintegrat 00 every 8 Medic al ing tablet (eight) Branch hours as needed for Nausea and Vomiting (N/V). ondansetron 2020-0 Yes [id number] 4mg Take 1 Univers (ZOFRAN 3-17 tablet by ity of ODT) 4 mg 00:00: mouth [place] disintegrat 00 every 8 Medic al ing tablet (eight) Branch hours as needed for Nausea and Vomiting (N/V). ondansetron 2020-0 Yes [id number] 4mg Take 1 Univers (ZOFRAN 3-17 tablet by ity of ODT) 4 mg 00:00: mouth [place] disintegrat 00 every 8 Medic al ing tablet (eight) Branch hours as needed for Nausea and Vomiting (N/V). ondansetron 2020-0 Yes [id number] 4mg Take 1 Univers (ZOFRAN 3-17 tablet by ity of ODT) 4 mg 00:00: mouth [place] disintegrat 00 every 8 Medic al ing tablet (eight) Branch hours as needed for Nausea and Vomiting (N/V). ondansetron 2020-0 Yes [id number] 4mg Take 1 Univers (ZOFRAN 3-17 tablet by ity of ODT) 4 mg 00:00: mouth [place] disintegrat 00 every 8 Medic al ing tablet (eight) Branch hours as needed for Nausea and Vomiting (N/V). ondansetron 2020-0 Yes [id number] 4mg Take 1 Univers (ZOFRAN 3-17 tablet by ity of ODT) 4 mg 00:00: mouth [place] disintegrat 00 every 8 Medic al ing tablet (eight) Branch hours as needed for Nausea and Vomiting (N/V). ondansetron 2020-0 Yes [id number] 4mg Take 1 Univers (ZOFRAN 3-17 tablet by ity of ODT) 4 mg 00:00: mouth [place] disintegrat 00 every 8 Medic al ing tablet (eight) Branch hours as needed for Nausea and Vomiting (N/V). ondansetron 2020-0 Yes [id number] 4mg Take 1 Univers (ZOFRAN 3-17 tablet by ity of ODT) 4 mg 00:00: mouth [place] disintegrat 00 every 8 Medic al ing tablet (eight) Branch hours as needed for Nausea and Vomiting (N/V). ondansetron 2020-0 Yes [id number] 4mg Take 1 Univers (ZOFRAN 3-17 tablet by ity of ODT) 4 mg 00:00: mouth [place] disintegrat 00 every 8 Medic al ing tablet (eight) Branch hours as needed for Nausea and Vomiting (N/V). ondansetron 2020-0 Yes [id number] 4mg Take 1 Univers (ZOFRAN 3-17 tablet by ity of ODT) 4 mg 00:00: mouth [place] disintegrat 00 every 8 Medic al ing tablet (eight) Branch hours as needed for Nausea and Vomiting (N/V). ondansetron 2020-0 Yes [id number] 4mg Take 1 Univers (ZOFRAN 3-17 tablet by ity of ODT) 4 mg 00:00: mouth [place] disintegrat 00 every 8 Medic al ing tablet (eight) Branch hours as needed for Nausea and Vomiting (N/V). ondansetron 2020-0 Yes [id number] 4mg Take 1 Univers (ZOFRAN 3-17 tablet by ity of ODT) 4 mg 00:00: mouth [place] disintegrat 00 every 8 Medic al ing tablet (eight) Branch hours as needed for Nausea and Vomiting (N/V). ondansetron 2020-0 Yes [id number] 4mg Take 1 Univers (ZOFRAN 3-17 tablet by ity of ODT) 4 mg 00:00: mouth [place] disintegrat 00 every 8 Medic al ing tablet (eight) Branch hours as needed for Nausea and Vomiting (N/V). ondansetron 2020-0 Yes [id number] 4mg Take 1 Univers (ZOFRAN 3-17 tablet by ity of ODT) 4 mg 00:00: mouth [place] disintegrat 00 every 8 Medic al ing tablet (eight) Branch hours as needed for Nausea and Vomiting (N/V). ondansetron 2020-0 Yes [id number] 4mg Take 1 Univers (ZOFRAN 3-17 tablet by ity of ODT) 4 mg 00:00: mouth [place] disintegrat 00 every 8 Medic al ing tablet (eight) Branch hours as needed for Nausea and Vomiting (N/V). ondansetron 2020-0 Yes [id number] 4mg Take 1 [facility] (ZOFRAN 3-17 tablet by ity of ODT) 4 mg 00:00: mouth [place] disintegrat 00 every 8 Medic al ing tablet (eight) Branch hours as needed for Nausea and Vomiting (N/V). ondansetron 2020-0 Yes [id number] 4mg Take 1 [facility] (ZOFRAN 3-17 tablet by ity of ODT) 4 mg 00:00: mouth [place] disintegrat 00 every 8 Medic al ing tablet (eight) Branch hours as needed for Nausea and Vomiting (N/V). ondansetron 2020-0 Yes [id number] 4mg Take 1 [facility] (ZOFRAN 3-17 tablet by ity of ODT) 4 mg 00:00: mouth [place] disintegrat 00 every 8 Medic al ing tablet (eight) Branch hours as needed for Nausea and Vomiting (N/V). ondansetron 2020-0 Yes [id number] 4mg Take 1 [facility] (ZOFRAN 3-17 tablet by ity of ODT) 4 mg 00:00: mouth [place] disintegrat 00 every 8 Medic al ing tablet (eight) Branch hours as needed for Nausea and Vomiting (N/V). ondansetron 2020-0 Yes [id number] 4mg Take 1 [facility] (ZOFRAN 3-17 tablet by ity of ODT) 4 mg 00:00: mouth [place] disintegrat 00 every 8 Medic al ing tablet (eight) Branch hours as needed for Nausea and Vomiting (N/V). ondansetron 2020-0 Yes [id number] 4mg Take 1 [facility] (ZOFRAN 3-17 tablet by ity of ODT) 4 mg 00:00: mouth [place] disintegrat 00 every 8 Medic al ing tablet (eight) Branch hours as needed for Nausea and Vomiting (N/V). ondansetron 2020-0 Yes [id number] 4mg Take 1 [facility] (ZOFRAN 3-17 tablet by ity of ODT) 4 mg 00:00: mouth [place] disintegrat 00 every 8 Medic al ing tablet (eight) Branch hours as needed for Nausea and Vomiting (N/V). ondansetron 2020-0 Yes [id number] 4mg Take 1 [facility] (ZOFRAN 3-17 tablet by ity of ODT) 4 mg 00:00: mouth [place] disintegrat 00 every 8 Medic al ing tablet (eight) Branch hours as needed for Nausea and Vomiting (N/V). ondansetron 2020-0 Yes [id number] 4mg Take 1 [facility] (ZOFRAN 3-17 tablet by ity of ODT) 4 mg 00:00: mouth [place] disintegrat 00 every 8 Medic al ing tablet (eight) Branch hours as needed for Nausea and Vomiting (N/V). ondansetron 2020-0 Yes [id number] 4mg Take 1 [facility] (ZOFRAN 3-17 tablet by ity of ODT) 4 mg 00:00: mouth [place] disintegrat 00 every 8 Medic al ing tablet (eight) Branch hours as needed for Nausea and Vomiting (N/V). cephALEXin 2020-0 2020- No [id number] 500mg Take 1 [facility] (KEFLEX) 3-17 03-28 capsule by ity of 500 mg 00:00: 04:59 mouth 4 [place] capsule 00 :00 (four) Medical times Branch daily for 10 days. ergocalcife 2020-0 Yes [id number] Take by [facility] rol, 3-09 mouth. ity of vitamin D2, 20:42: [place] (VITAMIN D 06 Medical ORAL) Branch ergocalcife 2020-0 Yes [id number] Take by [facility] rol, 3-09 mouth. ity of vitamin D2, 20:42: [place] (VITAMIN D 06 Medical ORAL) Branch ergocalcife 2020-0 Yes [id number] Take by [facility] rol, 3-09 mouth. ity of vitamin D2, 20:42: [place] (VITAMIN D 06 Medical ORAL) Branch ergocalcife 2020-0 Yes [id number] Take by [facility] rol, 3-09 mouth. ity of vitamin D2, 20:42: [place] (VITAMIN D 06 Medical ORAL) Branch ranitidine Yes [id number] 150mg Take 1 [facility] (ZANTAC) 9-26 tablet by ity of 150 mg 00:00: mouth 2 [place] tablet 00 (two) Medical times Branch daily. Follow up with your MD for further evaluation and treatment. ranitidine Yes [id number] 150mg Take 1 [facility] (ZANTAC) 9-26 tablet by ity of 150 mg 00:00: mouth 2 [place] tablet 00 (two) Medical times Branch daily. Follow up with your MD for further evaluation and treatment. ranitidine Yes [id number] 150mg Take 1 [facility] (ZANTAC) 9-26 tablet by ity of 150 mg 00:00: mouth 2 [place] tablet 00 (two) Medical times Branch daily. Follow up with your MD for further evaluation and treatment. ranitidine Yes [id number] 150mg Take 1 [facility] (ZANTAC) 9-26 tablet by ity of 150 mg 00:00: mouth 2 [place] tablet 00 (two) Medical times Branch daily. Follow up with your MD for further evaluation and treatment. phenazopyri 2018- Yes [id number] 200mg Take 1 [facility] dine 200 mg 9-26 tablet by ity of tablet 00:00: mouth 3 [place] 00 (three) Medical times Branch daily. ondansetron Yes [id number] 4mg Take 1 [facility] (ZOFRAN 9-26 tablet by ity of ODT) 4 mg 00:00: mouth [place] disintegrat 00 every 8 Medic al ing tablet (eight) Branch hours as needed for Nausea and Vomiting (N/V). ranitidine Yes [id number] 150mg Take 1 [facility] (ZANTAC) 9-26 tablet by ity of 150 mg 00:00: mouth 2 [place] tablet 00 (two) Medical times Branch daily. Follow up with your MD for further evaluation and treatment. ciprofloxac 2018- Yes [id number] 500mg Take 1 [facility] in HCl 500 - tablet by ity of mg tablet 00:00: mouth 2 [place] 00 (two) Medical times Branch daily. ondansetron Yes [id number] 4mg Take 1 [facility] (ZOFRAN - tablet by ity of ODT) 4 mg 00:00: mouth [place] disintegrat 00 every 8 Medic al ing tablet (eight) Branch hours as needed for Nausea and Vomiting (N/V). ranitidine Yes [id number] 150mg Take 1 [facility] (ZANTAC) - tablet by ity of 150 mg 00:00: mouth 2 [place] tablet 00 (two) Medical times Branch daily. Follow up with your MD for further evaluation and treatment. ranitidine 2020- No [id number] 150mg Take 1 [facility] (ZANTAC) 12-06 03-17 tablet by ity o f 150 mg 00:00: 00:00 mouth 2 [place] tablet 00 :00 (two) Medical times Branch daily. Follow up with your MD for further evaluation and treatment. ondansetron 2018- 2020- No [id number] 4mg Take 1 [facility] (ZOFRAN 12-06- tablet by ity of ODT) 4 mg 00:00: 00:00 mouth [place] disintegrat 00 :00 every 8 Medic al ing tablet (eight) Branch hours as needed for Nausea and Vomiting (N/V). phenazopyri 2018- 2020- No [id number] 200mg Take 1 [facility] dine 200 mg 12-06- tablet by it y of tablet 00:00: 00:00 mouth 3 [place] 00 :00 (three) Medical times Branch daily. ondansetron 2018- 2020- No [id number] 4mg Take 1 [facility] (ZOFRAN 12-06- tablet by ity of ODT) 4 mg 00:00: 00:00 mouth [place] disintegrat 00 :00 every 8 Medic al ing tablet (eight) Branch hours as needed for Nausea and Vomiting (N/V). ranitidine 2018- 2020- No [id number] 150mg Take 1 [facility] (ZANTAC) 12-06 tablet by ity o f 150 mg 00:00: 00:00 mouth 2 [place] tablet 00 :00 (two) Medical times Branch daily. Follow up with your MD for further evaluation and treatment. ciprofloxac 2020- No [id number] 500mg Take 1 [facility] in HCl 500 12-06 tablet by ity of mg tablet 00:00: 00:00 mouth [place] 00 :[place] (two) Medical times Branch daily. ondansetron 2018- 2020- No [id number] 4mg Take 1 [facility] (ZOFRAN 12-06 tablet by ity of ODT) 4 mg 00:00: 00:00 mouth [place] disintegrat 00 :00 every 8 Medic al ing tablet (eight) Branch hours as needed for Nausea and Vomiting (N/V). phenazopyri 2020- No [id number] 200mg Take 1 [facility] dine 200 mg 12-06 tablet by it y of tablet 00:00: 00:00 mouth 3 [place] 00 :00 (three) Medical times Branch daily. ondansetron 2020- No [id number] 4mg Take 1 [facility] (ZOFRAN 12-06 tablet by ity of ODT) 4 mg 00:00: 00:00 mouth [place] disintegrat 00 :00 every 8 Medic al ing tablet (eight) Branch hours as needed for Nausea and Vomiting (N/V). ranitidine 2020- No [id number] 150mg Take 1 [facility] (ZANTAC) 12-06 tablet by ity o f 150 mg 00:00: 00:00 mouth 2 [place] tablet 00 :00 (two) Medical times Branch daily. Follow up with your MD for further evaluation and treatment. ciprofloxac 2018- 2020- No [id number] 500mg Take 1 [facility] in HCl 500 12-06 tablet by ity of mg tablet 00:00: 00:00 mouth 2 [place] :[place] (two) Medical times Branch daily. NORETHINDRO 2019- Yes [id number] 1{tbl} TAKE 1 [facility] NE 0.35 mg 2-06 TABLET BY ity of tablet 00:00: MOUTH [place] DAILY [facility] [id number] 1{tbl} TAKE 1 [facility] NE 0.35 mg 2-06 TABLET BY ity of tablet 00:00: MOUTH DAILY Medical [facility] Yes [id number] 1{tbl} TAKE 1 [facility] NE 0.35 mg 2-06 TABLET BY ity of tablet 00:00: MOUTH DAILY Medical [facility] Yes [id number] 1{tbl} TAKE 1 [facility] NE 0.35 mg 2-06 TABLET BY ity of tablet 00:00: MOUTH DAILY [facility] [id number] 1{tbl} TAKE 1 [facility] NE 0.35 mg 2-06 TABLET BY ity of tablet 00:00: MOUTH DAILY [facility] [id number] 1{tbl} TAKE 1 [facility] NE 0.35 mg 2-06 TABLET BY ity of tablet 00:00: MOUTH DAILY [facility] [id number] 1{tbl} TAKE 1 [facility] NE 0.35 mg 2-06 TABLET BY ity of tablet 00:00: MOUTH DAILY [facility] [id number] 1{tbl} TAKE 1 [facility] NE 0.35 mg 2-06 TABLET BY ity of tablet 00:00: [facility] DAILY Medical Branch [facility] [id number] 1{tbl} TAKE 1 [facility] NE 0.35 mg 2-06 TABLET BY ity of tablet 00:00: MOUTH DAILY Medical Branch [facility] [id number] 1{tbl} TAKE 1 [facility] NE 0.35 mg 2-06 TABLET BY ity of tablet 00:00: MOUTH [place] DAILY Medical Branch [facility] [id number] 1{tbl} TAKE 1 [facility] NE 0.35 mg 2-06 TABLET BY ity of tablet 00:00: MOUTH [place] DAILY [facility] Branch [facility] [id number] 1{tbl} TAKE 1 [facility] NE 0.35 mg 2-06 TABLET BY ity of tablet 00:00: MOUTH [place] DAILY [facility] 2019 Yes [id number] 1{tbl} TAKE 1 [facility] NE 0.35 mg 2-06 TABLET BY ity of tablet 00:00: MOUTH [place] DAILY [facility] Yes [id number] 1{tbl} TAKE 1 [facility] NE 0.35 mg 2-06 TABLET BY ity of tablet 00:00: MOUTH [place] DAILY [facility] Yes [id number] 1{tbl} TAKE 1 [facility] NE 0.35 mg 2-06 TABLET BY ity of tablet 00:00: MOUTH [place] DAILY [facility] Yes [id number] 1{tbl} TAKE 1 [facility] NE 0.35 mg 2-06 TABLET BY ity of tablet 00:00: MOUTH [place] DAILY [facility] Yes [id number] 1{tbl} TAKE 1 [facility] NE 0.35 mg 2-06 TABLET BY ity of tablet 00:00: MOUTH [place] DAILY [facility] Yes [id number] 1{tbl} TAKE 1 [facility] NE 0.35 mg 2-06 TABLET BY ity of tablet 00:00: [facility] DAILY [facility] Yes [id number] 1{tbl} TAKE 1 [facility] NE 0.35 mg 2-06 TABLET BY ity of tablet 00:00: [facility] DAILY [facility] Yes [id number] 1{tbl} TAKE 1 [facility] NE 0.35 mg 2-06 TABLET BY ity of tablet 00:00: [facility] DAILY [facility] Yes [id number] 1{tbl} TAKE 1 [facility] NE 0.35 mg 2-06 TABLET BY ity of tablet 00:00: [facility] DAILY [facility] 2020- No [id number] 1{tbl} TAKE 1 [facility] NE 0.35 mg 2-06 -17 TABLET BY ity of tablet 00:00: 00:00 MOUTH [place] 00 [facility] [id number] [facility]{tbl} TAKE 1 [facility] NE 0.35 mg 2-06 09-17 TABLET BY ity of tablet 00:00: 00:00 MOUTH [place] 00 :00 DAILY Medical Branch amitriptyli 2019-0 Yes 20mg Take 2 Univ ers ne 10 mg 2-05 tablets by ity o f tablet 00:00: mouth at [place] 00 bedtime. Medical Branch amitriptyli 2019-0 Yes 20mg Take 2 Univ ers ne 10 mg 2-05 tablets by ity o f tablet 00:00: mouth at [place] 00 bedtime. Medical Branch amitriptyli 2019-0 Yes 20mg Take 2 Univ ers ne 10 mg 2-05 tablets by ity o f tablet 00:00: mouth at [place] [address] bedtime. Medical Branch amitriptyli 2019-0 Yes 20mg Take 2 Univ ers ne 10 mg 2-05 tablets by ity o f tablet 00:00: mouth at [place] [address] bedtime. Medical Branch amitriptyli 2019-0 Yes 20mg Take 2 Univ ers ne 10 mg 2-05 tablets by ity o f tablet 00:00: mouth at [place] [address] bedtime. Medical Branch amitriptyli 2019-0 Yes 20mg Take 2 Univ ers ne 10 mg 2-05 tablets by ity o f tablet 00:00: mouth at [place] [address] bedtime. Medical Branch amitriptyli 2019-0 Yes 20mg Take 2 Univ ers ne 10 mg 2-05 tablets by ity o f tablet 00:00: mouth at [place] [address] bedtime. Medical Branch amitriptyli 2019-0 Yes 20mg Take 2 Univ ers ne 10 mg 2-05 tablets by ity o f tablet 00:00: mouth at [place] [address] bedtime. Medical Branch amitriptyli 2019-0 Yes 20mg Take 2 Univ ers ne 10 mg 2-05 tablets by ity o f tablet 00:00: mouth at [place] [address] bedtime. Medical Branch amitriptyli 2019-0 Yes 20mg Take 2 Univ ers ne 10 mg 2-05 tablets by ity o f tablet 00:00: mouth at [place] [address] bedtime. Medical Branch amitriptyli 2019-0 Yes 20mg Take 2 Univ ers ne 10 mg 2-05 tablets by ity o f tablet 00:00: mouth at [place] [address] bedtime. Medical Branch amitriptyli 2019-0 Yes 20mg Take 2 Univ ers ne 10 mg 2-05 tablets by ity o f tablet 00:00: mouth at [place] bedtime. Medical Branch amitriptyli 2019-0 Yes 20mg Take 2 Univ ers ne 10 mg 2-05 tablets by ity o f tablet 00:00: mouth at [place] bedtime. Medical Branch amitriptyli 2019-0 Yes 20mg Take 2 Univ ers ne 10 mg 2-05 tablets by ity o f tablet 00:00: mouth at [place] bedtime. Medical Branch amitriptyli 2019-0 Yes 20mg Take 2 Univ ers ne 10 mg 2-05 tablets by ity o f tablet 00:00: mouth at [place] bedtime. Medical Branch amitriptyli 2019-0 Yes 20mg Take 2 Univ ers ne 10 mg 2-05 tablets by ity o f tablet 00:00: mouth at [place] bedtime. Medical Branch amitriptyli 2019-0 Yes 20mg Take 2 Univ ers ne 10 mg 2-05 tablets by ity o f tablet 00:00: mouth at [place] [address] bedtime. Medical Branch amitriptyli 2019-0 Yes 20mg Take 2 Univ ers ne 10 mg 2-05 tablets by ity o f tablet 00:00: mouth at [place] [address] bedtime. Medical Branch amitriptyli 2019-0 Yes 20mg Take 2 Univ ers ne 10 mg 2-05 tablets by ity o f tablet 00:00: mouth at [place] [address] bedtime. Medical Branch amitriptyli 2019-0 Yes 20mg Take 2 Univ ers ne 10 mg 2-05 tablets by ity o f tablet 00:00: mouth at [place] [address] bedtime. Medical Branch amitriptyli 2019-0 Yes 20mg Take 2 Univ ers ne 10 mg 2-05 tablets by ity o f tablet 00:00: mouth at [place] [address] bedtime. Medical Branch amitriptyli 2019-0 Yes 20mg Take 2 Univ ers ne 10 mg 2-05 tablets by ity o f tablet 00:00: mouth at [place] bedtime. Medical Branch amitriptyli 2019-0 Yes 20mg Take 2 Univ ers ne 10 mg 2-05 tablets by ity o f tablet 00:00: mouth at [place] [address] bedtime. Medical Branch amitriptyli 2019-0 Yes 20mg Take 2 Univ ers ne 10 mg 2-05 tablets by ity o f tablet 00:00: mouth at [place] [address] bedtime. Medical Branch amitriptyli Yes 20mg Take 2 Univ ers ne 10 mg 2-05 tablets by ity o f tablet 00:00: mouth at [place] [address] bedtime. Medical Branch amitriptyli Yes 20mg Take 2 Univ ers ne 10 mg 2-05 tablets by ity o f tablet 00:00: mouth at [place] [address] bedtime. Medical Branch amitriptyli Yes 20mg Take 2 Univ ers ne 10 mg 2-05 tablets by ity o f tablet 00:00: mouth at [place] [address] bedtime. Medical Branch amitriptyli Yes 20mg Take 2 Univ ers ne 10 mg 2-05 tablets by ity o f tablet 00:00: mouth at [place] [address] bedtime. Medical Branch amitriptyli Yes 20mg Take 2 Univ ers ne 10 mg 2-05 tablets by ity o f tablet 00:00: mouth at [place] [address] bedtime. Medical Branch amitriptyli Yes 20mg Take 2 Univ ers ne 10 mg 2-05 tablets by ity o f tablet 00:00: mouth at [place] [address] bedtime. Medical Branch amitriptyli Yes 20mg Take 2 Univ ers ne 10 mg 2-05 tablets by ity o f tablet 00:00: mouth at [place] [address] bedtime. Medical Branch amitriptyli Yes 20mg Take 2 Univ ers ne 10 mg 2-05 tablets by ity o f tablet 00:00: mouth at [place] [address] bedtime. Medical Branch amitriptyli Yes 20mg Take 2 Univ ers ne 10 mg 2-05 tablets by ity o f tablet 00:00: mouth at [place] [address] bedtime. Medical Branch amitriptyli Yes 20mg Take 2 Univ ers ne 10 mg 2-05 tablets by ity o f tablet 00:00: mouth at [place] [address] bedtime. Medical Branch ergocalcife Yes [id number] Take by Univers rol, 9-13 mouth. ity of vitamin D2, 17:06: [place] (VITAMIN D 25 Medical ORAL) Branch methylcellu Yes 1{packe Take 1 U nivers lose 8-08 t} Packet by ity of (CITRUCEL 00:00: mouth [place] SUGAR FREE) 00 daily. Mix Me dical oral powder with 8 oz Bra nch water. methylcellu 2018-0 Yes 1{packe Take 1 U nivers lose 8-08 t} Packet by ity of (CITRUCEL 00:00: mouth [place] SUGAR FREE) 00 daily. Mix Me dical oral powder with 8 oz Bra nch water. methylcellu 2018-0 Yes 1{packe Take 1 U nivers lose 8-08 t} Packet by ity of (CITRUCEL 00:00: mouth [place] SUGAR FREE) 00 daily. Mix Me dical oral powder with 8 oz Bra nch water. methylcellu 2018-0 Yes 1{packe Take 1 U nivers lose 8-08 t} Packet by ity of (CITRUCEL 00:00: mouth [place] SUGAR FREE) 00 daily. Mix Me dical oral powder with 8 oz Bra nch water. methylcellu 2018-0 Yes 1{packe Take 1 U nivers lose 8-08 t} Packet by ity of (CITRUCEL 00:00: mouth [place] SUGAR FREE) 00 daily. Mix Me dical oral powder with 8 oz Bra nch water. methylcellu 2018-0 2020- No 1{packe Take 1 Univers lose 8-08 03-17 t} Packet by ity of (CITRUCEL 00:00: 00:00 mouth [place] SUGAR FREE) 00 :00 daily. Mix Me dical oral powder with 8 oz Bra nch water. ondansetron 2018-0 Yes 4mg Take 1 Univ ers (ZOFRAN) 4 6-21 tablet by ity of mg tablet 00:00: mouth [place] 00 every 8 Medical (eight) Branch hours as needed for Nausea and Vomiting (N/V). ondansetron 2018-0 Yes 4mg Take 1 Univ ers (ZOFRAN) 4 6-21 tablet by ity of mg tablet 00:00: mouth [place] 00 every 8 Medical (eight) Branch hours as needed for Nausea and Vomiting (N/V). ondansetron 2018-0 Yes 4mg Take 1 Univ ers (ZOFRAN) 4 6-21 tablet by ity of mg tablet 00:00: mouth [place] 00 every 8 Medical (eight) Branch hours as needed for Nausea and Vomiting (N/V). ondansetron 2018-0 Yes 4mg Take 1 Univ ers (ZOFRAN) 4 6-21 tablet by ity of mg tablet 00:00: mouth [place] 00 every 8 Medical (eight) Branch hours as needed for Nausea and Vomiting (N/V). ondansetron 2018-0 Yes 4mg Take 1 Univ ers (ZOFRAN) 4 6-21 tablet by ity of mg tablet 00:00: mouth [place] 00 every 8 Medical (eight) Branch hours as needed for Nausea and Vomiting (N/V). ondansetron 2018-0 2020- No 4mg Take 1 Uni vers (ZOFRAN) 4 6-21 03-17 tablet by ity of mg tablet 00:00: 00:00 mouth [place] 00 :00 every 8 Medical (eight) Branch hours as needed for Nausea and Vomiting (N/V). Immunizations Ordered Filled Immunization Date Status Comments [facility] Immunization Name Name SARS-COV-2 COVID-19 2020-06-23 Completed Unive rsity of PFIZER VACCINE 00:00:00 [facility] SARS-COV-2 COVID-19 2020-06-23 Completed Unive rsity of PFIZER VACCINE 00:00:00 [facility] SARS-COV-2 COVID-19 2020-06-23 Completed Unive rsity of PFIZER VACCINE 00:00:00 [facility] SARS-COV-2 COVID-19 2020-06-23 Completed Unive rsity of PFIZER VACCINE 00:00:00 [facility] SARS-COV-2 COVID-19 2020-06-23 Completed Unive rsity of PFIZER VACCINE 00:00:00 [facility] SARS-COV-2 COVID-19 2020-06-23 Completed Unive rsity of PFIZER VACCINE 00:00:00 [facility] SARS-COV-2 COVID-19 2020-06-23 Completed Unive rsity of PFIZER VACCINE 00:00:00 [facility] SARS-COV-2 COVID-19 2020-06-23 Completed Unive rsity of PFIZER VACCINE 00:00:00 [facility] SARS-COV-2 COVID-19 2020-06-02 Completed Unive rsity of PFIZER VACCINE 00:00:00 [facility] SARS-COV-2 COVID-19 2020-06-02 Completed Unive rsity of PFIZER VACCINE 00:00:00 [place] [facility] SARS-COV-2 COVID-19 2020-06-02 Completed Unive rsity of PFIZER VACCINE 00:00:00 [facility] SARS-COV-2 COVID-19 2020-06-02 Completed Unive rsity of PFIZER VACCINE 00:00:00 [facility] SARS-COV-2 COVID-19 2020-06-02 Completed Unive rsity of PFIZER VACCINE 00:00:00 [facility] SARS-COV-2 COVID-19 2020-06-02 Completed Unive rsity of PFIZER VACCINE 00:00:00 [facility] SARS-COV-2 COVID-19 2020-06-02 Completed Unive rsity of PFIZER VACCINE 00:00:00 [facility] SARS-COV-2 COVID-19 2020-06-02 Completed Unive rsity of PFIZER VACCINE 00:00:00 [facility] HPV9 2018-01-09 Completed University of 00:00:00 [facility] HPV9 2018-01-09 Completed University of 00:00:00 [facility] HPV9 2018-01-09 Completed University of 00:00:00 [facility] HPV9 2018-01-09 Completed University of 00:00:00 [facility] HPV9 2018-01-09 Completed University of 00:00:00 [facility] HPV9 2018-01-09 Completed University of 00:00:00 [facility] HPV9 2018-01-09 Completed University of 00:00:00 [facility] HPV9 2018-01-09 Completed University of 00:00:00 [facility] HPV9 2018-01-09 Completed University of 00:00:00 [facility] HPV9 2018-01-09 Completed University of 00:00:00 [facility] HPV9 2018-01-09 Completed University of 00:00:00 [facility] HPV9 2018-01-09 Completed University of 00:00:00 [facility] HPV9 2018-01-09 Completed University of 00:00:00 [facility] HPV9 2018-01-09 Completed University of 00:00:00 [facility] HPV9 2018-01-09 Completed University of 00:00:00 [facility] HPV9 2018-01-09 Completed University of 00:00:00 [facility] HPV9 2018-01-09 Completed University of 00:00:00 [facility] HPV9 2018-01-09 Completed University of 00:00:00 [place] [facility] HPV9 2018-01-09 Completed University of 00:00:00 [place] [facility] HPV9 2018-01-09 Completed University of 00:00: [place] [facility] HPV9 2018-01-09 Completed University of 00:00:00 [place] [facility] HPV9 2018-01-09 Completed University of 00:00:00 [place] [facility] HPV9 2018-01-09 Completed University of 00:00:00 [place] [facility] HPV9 2018-01-09 Completed University of 00:00:00 [place] [facility] HPV9 2018-01-09 Completed University of 00:00:00 [place] [facility] HPV9 2018-01-09 Completed University of 00:00:00 [place] [facility] HPV9 2018-01-09 Completed University of 00:00:00 [place] [facility] HPV9 2018-01-09 Completed University of 00:00:00 [place] [facility] HPV9 2018-01-09 Completed University of 00:00:00 [place] [facility] HPV9 2018-01-09 Completed University of 00:00:00 [place] [facility] HPV9 2018-01-09 Completed University of 00:00:00 [place] [facility] HPV9 2018-01-09 Completed University of 00:00:00 [place] [facility] HPV9 2018-01-09 Completed University of 00:00:00 [place] [facility] HPV9 2018-01-09 Completed University of 00:00:00 [place] [facility] HPV9 2017-10-26 Completed University of 00:00:00 [place] [facility] HPV9 2017-10-26 Completed University of 00:00:00 [place] [facility] HPV9 2017-10-26 Completed University of 00:00:00 [place] [facility] HPV9 2017-10-26 Completed University of 00:00:00 [place] [facility] HPV9 2017-10-26 Completed University of 00:00:00 [place] [facility] HPV9 2017-10-26 Completed University of 00:00:00 [place] [facility] HPV9 2017-10-26 Completed University of 00:00:00 [place] [facility] HPV9 2017-10-26 Completed University of 00:00:00 [place] [facility] HPV9 2017-10-26 Completed University of 00:00:00 [place] [facility] HPV9 2017-10-26 Completed University of 00:00:00 [place] [facility] HPV9 2017-10-26 Completed University of 00:00:00 [facility] HPV9 2017-10-26 Completed University of 00:00:00 [facility] HPV9 2017-10-26 Completed University of 00:00:00 [facility] HPV9 2017-10-26 Completed University of 00:00:00 [facility] HPV9 2017-10-26 Completed University of 00:00:00 [facility] HPV9 2017-10-26 Completed University of 00:00:00 [facility] 2017-10-26 Completed University of 00:00:00 [facility] HPV9 2017-10-26 Completed University of 00:00:00 [facility] HPV9 2017-10-26 Completed University of 00:00:00 [facility] HPV9 2017-10-26 Completed University of 00:00:00 [facility] HPV9 2017-10-26 Completed University of 00:00:00 [facility] HPV9 2017-10-26 Completed University of 00[facility]00:00 [facility] 2017-10-26 Completed University of 00:00:00 [facility] 2017-10-26 Completed University of 00:00:00 [facility] HPV9 2017-10-26 Completed University of 00:00:00 [facility] HPV9 2017-10-26 Completed University of 00:00:00 [facility] 2017-10-26 Completed University of 00:00:00 [facility] HPV9 2017-10-26 Completed University of 00:00:00 [facility] 2017-10-26 Completed University of 00:00:00 [facility] 2017-10-26 Completed University of 00:00:00 [facility] 2017-10-26 Completed University of 00:00:00 [facility] HPV9 2017-10-26 Completed University of 00:00:00 [facility] 2017-10-26 Completed University of 00:00:00 [facility] HPV9 2017-10-26 Completed University of 00:00:00 [facility] Pneumococcal 13 2014-11-27 Completed Universit y of Conjugate, PCV13 00:00:00 [place] [facility]Prevnar 13[facility] Pneumococcal 13 2014-11-27 Completed Universit y of Conjugate, PCV13 00:00:00 [place] [facility] (Pre[facility]ar 13) [facility] Pneumococcal 13 2014-11-27 Completed Universit y of Conjugate, PCV13 00:00:00 [place] [facility] (Prevnar 13) [facility] Pneumococcal 13 2014-11-27 Completed Universit y of Conjugate, PCV13 00:00:00 [place] [facility] (Prevnar 13) [facility] Pneumococcal 13 2014-11-27 Completed Universit y of Conjugate, PCV13 00:00:00 [place] [facility] (Prevnar 13) [facility] Pneumococcal 13 2014-11-27 Completed Universit y of Conjugate, PCV13 00:00:00 [place] [facility] (Prevnar 13) [facility] Pneumococcal 13 2014-11-27 Completed Universit y of Conjugate, PCV13 00:00:00 [place] [facility] (Prevnar 13) [facility] Pneumococcal 13 2014-11-27 Completed Universit y of Conjugate, PCV13 00:00:00 [place] [facility] (Prevnar 13) [facility] Pneumococcal 13 2014-11-27 Completed Universit y of Conjugate, PCV13 00:00:00 [place] [facility] (Prevnar 13) [facility] Pneumococcal 13 2014-11-27 Completed Universit y of Conjugate, PCV13 00:00:00 [place] [facility] (Prevnar 13) [facility] Pneumococcal 13 2014-11-27 Completed Universit y of Conjugate, PCV13 00:00:00 [place] [facility] (Prevnar 13) [facility] Pneumococcal 13 2014-11-27 Completed Universit y of Conjugate, PCV13 00:00:00 [place] [facility] (Prevnar 13) [facility] Pneumococcal 13 2014-11-27 Completed Universit y of Conjugate, PCV13 00:00:00 [place] [facility] (Prevnar 13) [facility] Pneumococcal 13 2014-11-27 Completed Universit y of Conjugate, PCV13 00:00:00 [place] [facility] (Prevnar 13) Branch Pneumococcal 13 2014-11-27 Completed Universit y of Conjugate, PCV13 00:00:00 [place] [facility] (Prevnar 13) [facility] Pneumococcal 13 2014-11-27 Completed Universit y of Conjugate, PCV13 00:00:00 [place] [facility] (Prevnar 13) [facility] Pneumococcal 13 2014-11-27 Completed Universit y of Conjugate, PCV13 00:00:00 [place] [facility] (Prevnar 13) [facility] Pneumococcal 13 2014-11-27 Completed Universit y of Conjugate, PCV13 00:00:00 [place] [facility] (Prevnar 13) [facility] Pneumococcal 13 2014-11-27 Completed Universit y of Conjugate, PCV13 00:00:00 [place] [facility] (Prevnar 13) Branch Pneumococcal 13 2014-11-27 Completed Universit y of Conjugate, PCV13 00:00:00 [place] [facility] (Prevnar 13) [facility] Pneumococcal 13 2014-11-27 Completed Universit y of Conjugate, PCV13 00:00:00 [place] [facility] (Prevnar 13) Branch Pneumococcal 13 2014-11-27 Completed Universit y of Conjugate, PCV13 00:00:00 [place] [facility] (Prevnar 13) [facility] Pneumococcal 13 2014-11-27 Completed Universit y of Conjugate, PCV13 00:00:00 [place] [facility] (Prevnar 13) Branch Pneumococcal 13 2014-11-27 Completed Universit y of Conjugate, PCV13 00:00:00 [place] [facility] (Prevnar 13) Branch Pneumococcal 13 2014-11-27 Completed Universit y of Conjugate, PCV13 00:00:00 [place] [facility] (Prevnar 13) Branch Pneumococcal 13 2014-11-27 Completed Universit y of Conjugate, PCV13 00:00:00 [place] [facility] (Prevnar 13) Branch Pneumococcal 13 2014-11-27 Completed Universit y of Conjugate, PCV13 00:00:00 [place] [facility] (Prevnar 13) Branch Pneumococcal 13 2014-11-27 Completed Universit y of Conjugate, PCV13 00:00:00 [place] [facility] (Prevnar 13) Branch Pneumococcal 13 2014-11-27 Completed Universit y of Conjugate, PCV13 00:00:00 [place] [facility] (Prevnar 13) Branch Pneumococcal 13 2014-11-27 Completed Universit y of Conjugate, PCV13 00:00:00 [place] [facility] (Prevnar 13) Branch Pneumococcal 13 2014-11-27 Completed Universit y of Conjugate, PCV13 00:00:00 [place] [facility] (Prevnar 13) Branch Pneumococcal 13 2014-11-27 Completed Universit y of Conjugate, PCV13 00:00:00 [place] [facility] (Prevnar 13) Branch Pneumococcal 13 2014-11-27 Completed Universit y of Conjugate, PCV13 00:00:00 [place] [facility] (Prevnar 13) Branch Pneumococcal 13 2014-11-27 Completed Universit y of Conjugate, PCV13 00:00:00 [place] [facility] (Prevnar 13) [facility] Influenza Virus 2014-01-17 Completed Universit y of Vaccine Quad IM 3+ 00:00:00 [facility] Influenza Virus 2014-01-17 Completed Universit y of Vaccine Quad IM 3+ 00:00:00 [facility] Influenza Virus 2014-01-17 Completed Universit y of Vaccine Quad IM 3+ 00:00:00 [facility] Influenza Virus 2014-01-17 Completed Universit y of Vaccine Quad IM 3+ 00:00:00 [facility] Influenza Virus 2014-01-17 Completed Universit y of Vaccine Quad IM 3+ 00:00:00 [facility] Influenza Virus 2014-01-17 Completed Universit y of Vaccine Quad IM 3+ 00:00:00 [facility] Influenza Virus 2014-01-17 Completed Universit y of Vaccine Quad IM 3+ 00:00:00 [facility] Influenza Virus 2014-01-17 Completed Universit y of Vaccine Quad IM 3+ 00:00:00 [facility] Influenza Virus 2014-01-17 Completed Universit y of Vaccine Quad IM 3+ 00:00:00 [facility] Influenza Virus 2014-01-17 Completed Universit y of Vaccine Quad IM 3+ 00:00:00 [facility] Influenza Virus 2014-01-17 Completed Universit y of Vaccine Quad IM 3+ 00:00:00 [facility] Influenza Virus 2014-01-17 Completed Universit y of Vaccine Quad IM 3+ 00:00:00 [facility] Influenza Virus 2014-01-17 Completed Universit y of Vaccine Quad IM 3+ 00:00:00 [facility] Influenza Virus 2014-01-17 Completed Universit y of Vaccine Quad IM 3+ 00:00:00 [facility] Influenza Virus 2014-01-17 Completed Universit y of Vaccine Quad IM 3+ 00:00:00 [facility] Influenza Virus 2014-01-17 Completed Universit y of Vaccine Quad IM 3+ 00:00:00 [facility] Influenza Virus 2014-01-17 Completed Universit y of Vaccine Quad IM 3+ 00:00:00 [facility] Influenza Virus 2014-01-17 Completed Universit y of Vaccine Quad IM 3+ 00:00:00 [facility] Influenza Virus 2014-01-17 Completed Universit y of Vaccine Quad IM 3+ 00:00:00 [facility] Influenza Virus 2014-01-17 Completed Universit y of Vaccine Quad IM 3+ 00:00:00 [facility] Influenza Virus 2014-01-17 Completed Universit y of Vaccine Quad IM 3+ 00:00:00 [facility] Influenza Virus 2014-01-17 Completed Universit y of Vaccine Quad IM 3+ 00:00:00 [facility] Influenza Virus 2014-01-17 Completed Universit y of Vaccine Quad IM 3+ 00:00:00 [facility] Influenza Virus 2014-01-17 Completed Universit y of Vaccine Quad IM 3+ 00:00:00 [facility] Influenza Virus 2014-01-17 Completed Universit y of Vaccine Quad IM 3+ 00:00:00 [facility] Influenza Virus 2014-01-17 Completed Universit y of Vaccine Quad IM 3+ 00:00:00 [facility] Influenza Virus 2014-01-17 Completed Universit y of Vaccine Quad IM 3+ 00:00:00 [facility] Influenza Virus 2014-01-17 Completed Universit y of Vaccine Quad IM 3+ 00:00:00 [facility] Influenza Virus 2014-01-17 Completed Universit y of Vaccine Quad IM 3+ 00:00:00 [facility] Influenza Virus 2014-01-17 Completed Universit y of Vaccine Quad IM 3+ 00:00:00 [facility] Influenza Virus 2014-01-17 Completed Universit y of Vaccine Quad IM 3+ 00:00:00 [facility] Influenza Virus 2014-01-17 Completed Universit y of Vaccine Quad IM 3+ 00:00:00 [facility] Influenza Virus 2014-01-17 Completed Universit y of Vaccine Quad IM 3+ 00:00:00 [facility] Influenza Virus 2014-01-17 Completed Universit y of Vaccine Quad IM 3+ 00:00:00 [facility] Tdap 2013-11-28 Completed University of 00:00:00 [facility] Tdap 2013-11-28 Completed University of 00:00:00 [facility] Tdap 2013-11-28 Completed University of 00:00:00 [facility] Tdap 2013-11-28 Completed University of 00:00:00 [facility] Tdap 2013-11-28 Completed University of 00:00:00 [facility] Tdap 2013-11-28 Completed University of 00:00:00 [facility] TDAP 2013-11-28 Completed University of 00:00:00 [facility] TDAP 2013-11-28 Completed University of 00:00:00 [facility] TDAP 2013-11-28 Completed University of 00:00:00 [facility] TDAP 2013-11-28 Completed University of 00:00:00 [facility] TDAP 2013-11-28 Completed University of 00:00:00 [facility] TDAP 2013-11-28 Completed University of 00:00:00 [facility] TDAP 2013-11-28 Completed University of 00:00:00 [facility] TDAP 2013-11-28 Completed University of 00:00:00 [facility] TDAP 2013-11-28 Completed University of 00:00:00 [facility] TDAP 2013-11-28 Completed University of 00:00:00 [facility] TDAP 2013-11-28 Completed University of 00:00:00 [facility] TDAP 2013-11-28 Completed University of 00:00:00 [facility] TDAP 2013-11-28 Completed University of 00:00:00 [facility] TDAP 2013-11-28 Completed University of 00:00:00 [facility] TDAP 2013-11-28 Completed University of 00:00:00 [facility] TDAP 2013-11-28 Completed University of 00:00:00 [facility] TDAP 2013-11-28 Completed University of 00:00:00 [facility] TDAP 2013-11-28 Completed University of 00:00:00 [facility] TDAP 2013-11-28 Completed University of 00:00:00 [facility] TDAP 2013-11-28 Completed University of 00:00:00 [facility] TDAP 2013-11-28 Completed University of 00:00:00 [facility] TDAP 2013-11-28 Completed University of 00:00:00 [facility] TDAP 2013-11-28 Completed University of 00:00:00 [facility] TDAP 2013-11-28 Completed University of 00:00:00 [facility] TDAP 2013-11-28 Completed University of 00:00:00 [facility] TDAP 2013-11-28 Completed University of 00:00:00 [facility] TDAP 2013-11-28 Completed University of 00:00:00 [facility] Tdap 2013-11-28 Completed University of 00:00:00 [facility] Vital Signs Vital Name Observation Time Observation Value Comments Source Systolic blood 2020-07-23 13:14:00 117 mm[Hg] Univer sity of pressure [facility] Diastolic blood 2020-07-23 13:14:00 79 mm[Hg] Unive rsity of pressure [facility] Heart rate 2020-07-23 13:14:00 71 /min Universi ty of [facility] Body temperature 2020-07-23 13:14:00 36.83 Rox Univ ersity of [facility] Respiratory rate 2020-07-23 13:14:00 18 /min Univ ersity of [facility] Body height 2020-07-23 13:14:00 165.1 cm Universi ty of [facility] Body weight 2020-07-23 13:14:00 79.379 kg Universi ty of [facility] BMI 2020-07-23 13:14:00 29.12 kg/m2 Universi ty of [facility] Systolic blood 2020-07-13 13:35:00 123 mm[Hg] Univer sity of pressure [facility] Diastolic blood 2020-07-13 13:35:00 81 mm[Hg] Unive rsity of pressure [facility] Heart rate 2020-07-13 13:35:00 69 /min Universi ty of [facility] Body temperature 2020-07-13 13:35:00 36.78 Rox Univ ersity of [facility] Respiratory rate 2020-07-13 13:35:00 18 /min Univ ersity of [facility] Body height 2020-07-13 13:35:00 165.1 cm Universi ty of [facility] Body weight 2020-07-13 13:35:00 80.74 kg Universi ty of [facility] BMI 2020-07-13 13:35:00 29.62 kg/m2 [facility]i [facility] Systolic blood 2019-11-28 18:41:00 119 mm[Hg] Univer sity of pressure [facility] Diastolic blood 2019-11-28 18:41:00 83 mm[Hg] Unive rsity of pressure [facility] Heart rate 2019-11-28 18:41:00 54 /min Universi ty of [facility] Body temperature 2019-11-28 18:41:00 36.72 Rox Univ ersity of [facility] Respiratory rate 2019-11-28 18:41:00 18 /min Univ ersity of [facility] Body height 2019-11-28 18:41:00 165.1 cm Universi [facility] of [facility] Body weight 2019-11-28 18:41:00 80.74 kg Universi ty of [facility] BMI 2019-11-28 18:41:00 29.62 kg/m2 Universi ty of [facility] Systolic blood 2019-11-20 18:17:00 108 mm[Hg] Univer sity of pressure [facility] Diastolic blood 2019-11-20 18:17:00 74 mm[Hg] Unive rsity of pressure [facility] Heart rate 2019-11-20 18:17:00 80 /min Universi ty of [facility] Body temperature 2019-11-20 18:17:00 36.83 Rox Univ ersity of [facility] Respiratory rate 2019-11-20 18:17:00 20 /min Univ ersity of [facility] Body height 2019-11-20 18:17:00 167.6 cm Universi [facility] of [facility] Body weight 2019-11-20 18:17:00 81.647 kg Universi ty of [facility] BMI 2019-11-20 18:17:00 29.05 kg/m2 Universi ty of [facility] Oxygen saturation in 2019-11-20 18:17:00 98 /min University of Arterial blood by [employer] Pulse oximetry Branch Systolic blood 2019-09-23 18:29:00 108 mm[Hg] Univer sity of pressure [facility] Diastolic blood 2019-09-23 18:29:00 73 mm[Hg] Unive rsity of pressure [facility] Heart rate 2019-09-23 18:29:00 79 /min Universi ty of [facility] Body temperature 2019-09-23 18:29:00 36.28 Rox Univ ersity of [facility] Respiratory rate 2019-09-23 18:29:00 20 /min Univ ersity of [facility] Body height 2019-09-23 18:29:00 167.6 cm Universi ty of [facility] Body weight 2019-09-23 18:29:00 80.65 kg Universi ty of [facility] BMI 2019-09-23 18:29:00 28.70 kg/m2 Universi ty of [facility] Oxygen saturation in 2019-09-23 18:29:00 98 /min University of Arterial blood by [employer]ulse oxim[facility] Branch Systolic blood 2019-09-17 20:19:00 120 mm[Hg] Univer sity of pressure [facility] Diastolic blood 2019-09-17 20:19:00 85 mm[Hg] Unive rsity of pressure [facility] Heart rate 2019-09-17 20:19:00 80 /min Universi ty of [facility] Body temperature 2019-09-17 20:19:00 37.06 Rox Univ ersity of [facility] Respiratory rate 2019-09-17 20:19:00 20 /min Univ ersity of [facility] Body height 2019-09-17 20:19:00 165.1 cm Universi ty of [facility] Body weight 2019-09-17 20:19:00 79.652 kg Universi ty of [facility] BMI 2019-09-17 20:19:00 29.22 kg/m2 Universi ty of [facility] Oxygen saturation in 2019-09-17 20:19:00 98 /min University of Arterial blood by [facility] Pulse oximetry Branch Systolic blood 2019-05-28 19:54:00 128 mm[Hg] Univer sity of pressure [facility] Diastolic blood 2019-05-28 19:54:00 83 mm[Hg] Unive rsity of pressure [facility] Heart rate 2019-05-28 19:54:00 80 /min Universi ty of [facility] Body temperature 2019-05-28 19:54:00 37.39 Rox Univ ersity of [facility] Respiratory rate 2019-05-28 19:54:00 17 /min Univ ersity of [facility] Oxygen saturation in 2019-05-28 19:54:00 98 /min University of Arterial blood by [facility] Pulse oximetry Branch Body weight 2019-05-28 18:44:00 78.472 kg Universi ty of [facility] BMI 2019-05-28 18:44:00 29.70 kg/m2 [facility] ty [facility] Systolic blood 2019-05-20 20:35:00 112 mm[Hg] Univer sity of pressure [facility] Diastolic blood 2019-05-20 20:35:00 78 mm[Hg] Unive rsity of pressure [facility] Heart rate 2019-05-20 20:35:00 72 /min Universi ty of [facility] Body temperature 2019-05-20 20:35:00 36.94 Rox Univ ersity of [facility] Respiratory rate 2019-05-20 20:35:00 18 /min [facility] Body height 2019-05-20 20:35:00 162.6 cm [facility] Body weight 2019-05-20 20:35:00 78.472 kg [facility] BMI 2019-05-20 20:35:00 29.70 kg/m2 [facility] Procedures Procedure Date / Time Performing Clinician Source Performed CONSENT FOR CONTRACEPTION 2020-07-23 05:01:00 Doctor Unaclarisa, [facility] POCT TEST 2020-07-23 00:00:00 Zeyad Arita [facility] CONSENT TO CONTACT FOR 2020-07-13 13:12:50 Doctor Unassigned, [facility] VOLUNTARY RESEARCH [facility] ABDOMEN PELVIS W WO 2020-01-24 14:52:05 Josie Umana [facility] HB CREATININE BLOOD 2020-01-24 14:34:00 Josie Umana [facility] CONSENT FOR ORAL 2019-11-28 05:01:00 Doctor Holger, [facility] CONTRACEPTIVES [place] POCT TEST 2019-11-28 00:00:00 Madison Marquez [facility] POCT URINALYSIS AUTO 2019-11-20 18:21:00 Josie Umana [facility] US RETROPERITONEAL 2019-10-15 19:01:12 Josie Umana [facility] COMPLETE [facility] ASSIGNMENT OF BENEFITS 2019-10-15 17:47:45 Doctor Unassigned, Un [facility] POCT URINALYSIS AUTO 2019-09-23 18:32:00 Josie Umana [facility] POCT TEST 2019-05-28 19:52:00 Dany Francis [facility] URINALYSIS 2019-05-28 18:55:00 Dany Francis [place] [facility] ADC,CLC OR [facility] ONLY - 2019-05-28 18:55:00 Dany Francis [facility] INFLUENZA A & B DIRECT Medical [facility] ANTIGEN NOTICE OF PRIVACY 2019-05-28 18:28:49 Doctor Deyanira Wren [facility] PRACTICES [facility] CONSENT/REFUSAL FOR 2019-05-28 18:28:36 Doctor Holger [facility] DIAGNOSIS AND TREATMENT [facility] AGREEMENTS AUTHORIZATIONS 2019-05-23 05:01:00 Doctor Holger, [facility] AND IRREVOCABLE [facility] ASSIGNMENTS (FORM 2001) ASSIGNMENT OF BENEFITS 2019-05-20 20:07:14 Doctor Holger, [facility] Encounters Start End Encounter Admission Attending Care Care Encounter Source Date/Time Date/Time Type Type Clinicians Facility Department ID 2021-01-07 [facility] [id number] [facility]-08-11 2021-08-11 Outpatient Derick [facility] [id number] Univers 14:00:00 14:00:00 [place] [id number] [facility] 2020-07-23 2020-07-23 [facility] [id number] Univers 07:55:23 08:36:56 Visit Raj La [id number] [id number] [phone] In dical [address] 2020-07-23 2020-07-23 Outpatient R ZEYAD [facility] [id number] Univers 08:00:00 08:00:00 [id number] ity [facility] 2020-07-23 2020-07-23 Outpatient R JUAN J [facility] [id number] Univers 08:00:00 08:00:00 ity [facility] 2020-07-23 2020-07-23 Orders Doctor BOSS [id number] Univers 00:00:00 00:00:00 Only UnassignedJESSY [id number] ity of [facility] [id number] Rafael as [phone] [address] 2020-07-13 2020-07-13 Outpatient R [facility] [id number] Univers 10:45:00 10:45:00 ity [facility] 2020-07-13 2020-07-13 Review Trainer 2, Adc Lab [facility] [id number] Univers 09:08:48 09:23:48 Visit Zeyad Arita [id number] [id number] [phone] In dical [facility] [address] [facility] 2020-07-13 2020-07-13 Office Jimmy [facility] [id number] Univers 08:14:14 09:04:02 Visit Madisonedgar La [id number] [id number] [phone] In dical nal [address] [facility] 2020-07-13 2020-07-13 Outpatient Derick [facility] [id number] Univers 08:00:00 08:00:00 [place] [id number] [facility] 2020-07-13 2020-07-13 Outpatient Derick [facility] [id number] Univers 08:00:00 08:00:00 [facility] 2020-07-13 2020-07-13 Orders Doctor KARYN [id number] Univers 00:00:00 00:00:00 Only Unassigned, JESSY [id number] ity of [facility] [id number] Rafael as [phone] [address] 2020-06-23 2020-06-23 Outpatient Derick [facility] [id number] Univers 08:10:00 08:10:00 PAOLA [facility] 2020-06-22 2020-06-22 Outpatient Derick [facility] [id number] Univers 08:30:00 08:30:00 [place] [id number] [facility] 2020-06-22 2020-06-22 Outpatient Derick [facility] [id number] Univers 08:30:00 08:30:00 [place] [facility] 2020-06-02 2020-06-02 Outpatient [facility] [id number] Univers 08:00:00 08:00:00 [facility] 2020-06-01 2020-06-01 Outpatient R JIMMY, [facility] [id number] Univers 08:30:00 08:30:00 [place] [id number] [facility] 2020-06-01 2020-06-01 [facility] [id number] Univers 08:30:00 [facility]:30[facility] 2020-04-02 2020-04-02 Emergency E FAM, [facility] [id number] 16:27:00 17:30:00 [facility] 2020-02-03 2020-02-03 [facility] [id number] Univers 14:45:00 14:45:00 JOSIE [id number] [facility] 2020-02-03 2020-02-03 [facility] [id number] Univers 14:45:00 14:45:00 JOSIE [facility] 2020-01-31 2020-01-31 [facility] [id number] Univers 13:00:00 13:00:00 JOSIE [facility] 2020-01-24 2020-01-24 [facility] [id number] Univers 08:00:00 23:59:00 Encounter Josie La [id number] [facility] [id number] [place] [facility] [phone] [address] 2020-01-24 2020-01-24 [facility] [id number] -[id number] Univers 10:30:00 10:30:00 JOSIE [id number] [facility] 2020-01-24 2020-01-24 [facility] [id number] Univers 00:00[facility]00 [facility] [place] 2019-11-29 2019-11-29 [facility] [id number] Univers 00:00:00 00:00:00 [place] [id number] [id number] [phone] In dical nal 134 [facility] 2019-11-28 2019-11-28 Office Jimmy [facility] [id number] Univers 13:17:32 13:58:11 Visit [place] [address]13.[address] [id number] [phone] [facility] 134 [facility] 2019-11-28 2019-11-28 Outpatient R [facility] [id number] Univers 13:15:00 13:15:00 [place] [id number] ity [facility] 2019-11-28 2019-11-28 Outpatient R [facility] [id number] Univers 13:15:00 13:15:00 [place] ity [facility] 2019-11-28 2019-11-28 Orders Doctor KARYN 1.2.840.114 [id number] Univers 00:00:00 00:00:00 Only Unassigned, JESSY 350.1.13.10 ity of [facility] [id number] Rafael as [phone] [address] 2019-11-26 2019-11-26 Refill Crystal [facility] [id number] Univers 00:00:00 00:00:00 Elisabet [place] 350.1.13.[address] [id number] [phone] In dical [facility] 134 [facility] 2019-11-20 2019-11-20 Office [facility] [id number] Univers 12:46:29 13:42:00 Visit Josie La 350.1.13.[address] 4[place] [phone] In dical nal 204 [facility] 2019-11-20 2019-11-20 Outpatient [facility] [id number] -[id number] Univers 13:15:00 13:15:00 JOSIE ity [facility] 2019-11-20 2019-11-20 Outpatient R [facility] [id number] Univers 13:15:00 13:15:00 JOSIE ity [facility] 2019-11-13 2019-11-13 Outpatient R [facility] [id number] Univers 15:15:00 15:15:00 JOSIE ity [facility] 2019-11-13 2019-11-13 Outpatient R [facility] [id number] Univers 15:15:00 15:15:00 JOSIE ity [facility] 2019-11-06 2019-11-06 Outpatient R [facility] [id number] Univers 15:00:00 15:00:00 JOSIE [id number] [facility] 2019-11-06 2019-11-06 Outpatient R [facility] [id number] Univers 15:00:00 15:00:00 JOSIE itpatsy [facility] 2019-10-21 2019-10-21 Outpatient R [facility] [id number] -[id number] Univers 13:30:00 13:30:00 JOSIE y [facility] 2019-10-21 2019-10-21 Outpatient R [facility] [id number] Univers 13:30:00 13:30:00 JOSIE [facility] 2019-10-16 2019-10-16 Telephone [facility] [id number] Univers 00:00:00 00:00:00 Wondidilip A [place] 350.1.13.[address] 4.2.[place].2.[place] [facility] [phone] In dical nal [address] [facility] 2019-10-15 2019-10-15 [facility] 1.2.840.114 [id number] Univers 12:49:43 23:59:00 Encounter Josie Montoya [place] 350.1.13.[address] 4.2.7.2.[place] [phone] [facility] [address] 2019-10-15 2019-10-15 Outpatient R [facility] [id number] -[id number] Univers 13:00:00 13:00:00 JOSIE [id number] ity [facility] 2019-10-15 2019-10-15 [facility] [id number] Univers 00:00:00 00:00:00 JOSIE ity [facility] 2019-10-15 2019-10-15 Orders Doctor BOSS 1.2.840.114 [id number] Univers 00:00:00 00:00:00 Only Unassigned, JESSY 350.1.13.10 ity of [facility] 4.2.7.2.686 Rafael as [phone] [address] 2019-09-30 2019-09-30 [facility] [id number] -[id number] Univers 14:00:00 14:00:00 JOSIE ity [facility] 2019-09-26 2019-09-26 Telephone [facility] [id number] Univers 00:00:00 00:00:00 Josie [place] 350.1.13.[address] [id number] [phone] In dical nal [address] [place] [address] 2019-09-23 2019-09-23 Office [facility] 1.2.840.114 [id number] Univers 13:12:40 13:54:44 Visit Josie La 350.1.13.[address] 4.2.7.2.[place] [phone] In dical [address] 2019-09-23 2019-09-23 Out[facility] [id number] -[id number] Univers 13:15:00 13:15:00 JOSIE [id number] ity [facility] 2019-09-23 2019-09-23 Out[facility] [id number] Univers 13:15:00 13:15:00 JOSIE ity [facility] 2019-09-23 2019-09-23 Nurse KARYN Cedillo 1.2.840.114 [id number] Univers 00:00:00 00:00:00 Triage Miliedgar JIMÉNEZ 350.1.13.10 it y of HOSPITAL 4.2.7.2.686 [place] as [phone] [address] 2019-09-23 2019-09-23 Patient Doctor KARYN 1.2.840.114 [id number] Univers 00:00:00 00:00:00 Secure Msg UnassignedJESSY 350.1.13.10 ity of [facility] 4.2.7.2.686 [place] as [phone] [address] 2019-09-17 2019-09-17 [facility] [id number] Univers 15:04:50 16:55:45 Visit Nelly [place] 350.1.13.[address] 4.2.[place].2.[place] [facility] [phone] In dical [address] 2019-09-17 2019-09-17 [facility] [id number] Univers 15:00:00 15:00:00 NELLY [id number] ity [facility] 2019-09-17 2019-09-17 Outpatient R [facility] [id number] Univers 15:00:00 15:00:00 [facility] 2019-08-13 2019-08-13 Outpatient R [facility] [id number] Univers 14:30:00 14:30:00 WONDIFUL [id number] ity o f [facility] 2019-08-13 2019-08-13 Outpatient Derick [facility] [id number] Univers 14:30:00 14:30:00 WONDIFUL ity o f [facility] 2019-05-28 2019-05-28 Emergency [facility] 1.2.840.114 [id number] Univers 13:40:01 14:58:00 Dany [place] 350.1.13.[address] 4[place]2.[place] [phone] [address] 2019-05-28 2019-05-28 Orders Doctor KARYN 1.2.840.114 [id number] Univers 00:00:00 00:00:00 Only Unassigned, JESSY 350.1.13.10 ity of [facility] 4.2.7.2.686 Rafael as [phone] [address] 2019-05-23 2019-05-23 Outpatient [facility] [id number] Univers 10:30:00 10:30:00 [id number] ity of [facility] 2019-05-23 2019-05-23 Outpatient R [facility] [id number] Univers 10:30:00 10:30:00 ELISABET ity [facility] 2019-05-23 2019-05-23 Review Trainer 2, Adc Lab [facility] 1.2.840.114 [id number] Univers 10:13:13 10:28:13 Visit Adum, Elisabet [place] 350.1.13.[address] 4[place] [phone] In dical nal 353 [facility] 2019-05-23 2019-05-23 Orders Doctor KARYN 1.2.840.114 [id number] Univers 00:00:00 00:00:00 Only Unassigned, JESSY 350.1.13.10 ity of [facility] 4.2.7.2.686 [place] as [phone] [address] 2019-05-20 2019-05-20 Office Adum, [facility] 1.2.840.114 [id number] Univers 15:07:52 16:40:16 Visit Elisabet La 350.1.13.[address] 4[place] [phone] In dical nal 134 [facility] 2019-05-20 2019-05-20 Outpatient [facility] [id number] -[id number] Univers 15:00:00 15:00:00 ELISABET ity [facility] 2019-05-20 2019-05-20 Outpatient R [facility] [id number] Univers 15:00:00 15:00:00 ELISABET ity [facility] 2019-05-20 2019-05-20 Orders Doctor KARYN 1.2.840.114 [id number] Univers 00:00:00 00:00:00 Only Unassigned, JESSY 350.1.13.10 ity of [place] [facility] 4.2.7.2.686 [place] as [phone] [address] Results Test Description Test Time Test Comments Results Result Comments Source POCT TEST 2020-07-23 13:23:00 Test Item Value Reference Range Interpretation Comme nts POCT PREG (test code = 1605) Negative On board controls acceptable with C Line (test code = 3574) Yes POCT PREG LOT # (test code = 3575) POCT PREG TEST DATE (test code = 3576) [facility] [id number] 13:23:00 Test Item Value Reference Range Interpretation Comments POCT PREG (test code = 1605) Negative On board controls acceptable with C Yes Line (test code = 3574) POCT PREG LOT # (test code = 3575) POCT PREG TEST DATE (test code = 3576) [facility] FOR VOLUNTARY RESEARCH 2020-07-13 13:12:50 Test Item Value Reference Range Interpretation Comments Consent To Contact For Voluntary Yes Research (test code = 4947) [facility] [id number] 12:17:00 Test Item Value Reference Range Interpretation Comments Culture Observations NO BETA HEMOLYTIC (test code = COB1) STREPTOCOCCUS ISOLATED Direct Exam (test code NO STREPTOCOCCUS GROUP = DE1) A ANTIGEN DETECTED DIRECT INFLUENZA A AND B [id number] 17:30:00 Test Item Value Reference Range Interpretation Comments Direct Exam (test PRESUMPTIVE NEGATIVE FOR code = DE1) THE PRESENCE OF INFLUENZA ANTIGEN SARS-CoV (RAPID ANTIGEN)2020-04-02 17:28:00 Test Item Value Reference Range Interpretation Comments SARS-CoV (ANTIGEN) NEGATIVE NEGATIVE (test code = COVAG) COVID AG (test This test has been code = COVAGC) marketed under the FDA Emergency Use Authorization (EUA) to meet challenges of the COVID-19 pandemic. The validation standards normally enforced by the FDA and the [employer] of the [place] [employer] (CAP) are more stringent than those required for this test. Therefore, the result should be interpreted with caution and close attention to other clinical and epidemiological data URINALYSIS WITH [id number] 17:21:00 Test Item Value Reference Range Interpretation Comments COLOR (test code = COLU) YELLOW YELLOW CLARITY (test code = CLA) CLEAR CLEAR GLUCOSE UR (test code = UA GLUCOSE) NEGATIVE NEGATIVE BILI UR (test code = BILE) NEGATIVE NEGATIVE KETONES UR (test code = NORMAN) NEGATIVE NEGATIVE SP GRAVITY (test code = SPGR) 1.012 1.005-1.030 PH UR (test code = PH) 6.5 4.5-8.0 PROTEIN UR (test code = PU) NEGATIVE NEGATIVE UROBIL UR (test code = UROQ) 0.2 EU/dL 0.2-1.0 NITRITE UR (test code = NITRITE) NEGATIVE NEGATIVE BLOOD UR (test code = UA BLOOD) 3+ NEGATIVE A LEUK ES UR (test code = LEUK) TRACE NEGATIVE A WBC UR (test code = UWBC) 6 /HPF 0-5 H RBC UR (test code = URBC) 20 /HPF 0-2 H EPITH UR (test code = UEPC) FEW /LPF FEW BACTERIA UR (test code = UBACT) NONE /HPF NONE CAST UR (test code = CAST) /LPF NONE CRYSTAL UR (test code = CRYU) / LPF NONE MUCUS UR (test code = MUC) / HPF NONE AMORPH UR (test code = DALI) / HPF NONE TRICH UR (test code = UTRICH) /HPF NONE YEAST UR (test code = UY) /HPF NONE SPERM UR (test code = USPERM) /HPF NONE URINE [id number] 17:08:00 Test Item Value Reference Range Interpretation Comments PREG UR (test code = PGU) NEGATIVE NEGATIVE POCT [id number] 20:07:00 Test Item Value Reference Range Interpretation Comments POCT Creatinine (test code = 0.8 mg/dL 0.5-1.5 [id number]) Lab Interpretation (test code = Normal 92155-7) [facility] A[facility]OMEN PELVIS W WO [id number] 17:15:281. ?Stable right upper renal pole 1.0 cm cyst with a thin septation(without perceptible enhancement), Bosniak 2. 2. ?No hydronephrosis or nephrolithiasis. CONTRAST-ENHANCED CT OF THE ABDOMEN REASON FOR STUDY: right Bosniak II renal cyst COMPARISON: 10/15/2019 and 12/06/2018 TECHNIQUE: Multidetector axial CT images from lung bases through pelvicinlet before and after IV administration of nonionic iodinated contrastmaterial. Abdomen and pelvis were scanned and in precontrast, arterial andvenous phase. Pelvis was scanned in portal venous phase. Correspondingcoronal and sagittal MPR images also generated. INTRAVENOUS CONTRAST ADMINISTRATION (mL Omnipaque 350): 107. DOSE REPORT (Total DLP mGy*cm): 1453.FINDINGS: Lower chest: Clear lung bases. ABDOMEN AND PELVISLiver: Liver measures 18.4 cm in craniocaudal dimension. No focal hepaticlesion identified. Biliary Tract/GB: Status post cholecystectomy. No biliary ductaldilatation. Spleen: No splenomegaly. Pancreas: Within normal limits. Adrenals: Within normal limits. Kidneys: Kidneys enhance symmetrically. No hydronephrosis ornephrolithiasis. Stable 1.0cm cyst with a thin septation (withoutdiscernible enhancement). No lesional calcification. Bowel: Nobowel dilatation or abnormal wall thickening. Appendix is notvisualized. However, there is no right lower quadrant inflammatory changeor stranding. Small sliding- type hiatal hernia. Peritoneum: No pneumoperitoneum or free fluid. Vasculature: Patent abdominal vasculature. Bilateral accessory renalarteries. Lymph Nodes: Within normal limits. ? Pelvic organs: Urinary bladder is nearly completely decompressed.Anteflexed uterus appears unremarkable with small amount of fluid withinthe endometrial cavity. Right ovary contains a 2.0 cm corpus luteum. Abdominal/Pelvic Wall: Fat-containing umbilical hernia. BONES: No acute or suspicious osseous abnormality. Prmb, Radiant Results Inft User - 01/24/2020 11:[address] OF THE ABDOMENREASON FOR STUDY: right BosniakII renal cyst COMPARISON: 10/15/2019 and 12/06/2018TECHNIQUE: Multidetector axial CT images from lung bases through pelvicinlet before and after IV administration of nonionic iodinated contrastmaterial. Abdomen and pelvis were scanned and in precontrast, arterial andvenous phase. Pelvis was scanned in portal venous phase. Correspondingcoronal and sagittal MPR images also generated.INTRAVENOUS CONTRAST ADMINISTRATION (mL Omnipaque 350): 107.DOSE REPORT (Total DLP mGy*cm): 1453.FINDINGS: Lower chest: Clear lung bases.ABDOMEN AND PELVISLiver: Liver measures 18.4 cm in craniocaudal dimension. No focal hepa ticlesion identified.Biliary Tract/GB: Status post cholecystectomy. No biliary ductaldilatation.Spleen: No splenomegaly.Pancreas: Within normal limits.Adrenals: Within normal limits.Kidneys: Kidneys enhance symmetrically. No hydronephrosis ornephrolithiasis. Stable 1.0 cm cyst with a thin septation (wi thoutdiscernible enhancement). No lesional calcification.Bowel: No bowel dilatation or abnormal wallthickening. Appendix is notvisualized. However, there is no right lower quadrant inflammatory changeor stranding. Small sliding-type hiatal hernia.Peritoneum: No pneumoperitoneum or free fluid.Vasculature: Patent abdominal vasculature. Bilateral accessory renalarteries.Lymph Nodes: Within normal limits. Pelvic organs: Urinary bladder is nearly completely decompressed.Anteflexed uterus appears unremarkable with small amount of fluid withinthe endometrial cavity. Right ovary contains a 2.0 cm corpus luteum.Abdominal/Pelvic Wall: Fat-containing umbilical hernia.BONES: No acute or suspicious osseous abnormality.IMPRESSION1. Stable right upper renal pole 1.0 cm cyst with a thin septation(without perceptible enhancement), Bosniak 2. 2. No hydronephrosis or nephrolithiasis.[facility] POCT [id number] 19:03:00 Test Item Value Reference Range Interpretation Comments POCT PREG (test code = 1605) Negative On board controls acceptable with C Yes Line (test code = 3574) POCT PREG LOT # (test code = 3575) POCT PREG TEST DATE (test code = 3576) [facility]PO[facility] [id number] 19:03:00 Test Item Value Reference Range Interpretation Comments POCT PREG (test code = 1605) Negative On board controls acceptable with C Yes Line (test code = 3574) POCT PREG LOT # (test code = 3575) POCT PREG TEST DATE (test code = 3576) [facility] URINALYSIS, [id number] 18:24:00 Test Item Value Reference Range Interpretation Comments POCT U SP GRAV (test code = 1.010 mg/dl 1.005-1.025 3255) POCT PH U (test code = 3254) 6.0 mg/dl 5-8 POCT U LEUK EST (test code = Moderate Negative - Negative 3263) POCT U NIT (test code = 3262) Negative Negative - Negative POCT U PROT (test code = Negative Negative - Negative 3259) POCT U GLU (test code = 3256) Negative Negative - Negative POCT U KETONE (test code = Negative Negative - Negative 3258) POCT U UROBILI (test code = 0.2 mg/dl 0.2-1 3260) POCT U BILI (test code = Negative Negative - Negative 3261) POCT U BLD (test code = 3257) Negative Negative - Negative POCT U COLOR (test code = yellow 3266) POCT U APPEAR (test code = clear 3267) Lab Interpretation (test code Abnormal = 53931-5) [facility]PO[facility] URINALYSIS, [id number] 18:24:00 Test Item Value Reference Range Interpretation Comments POCT U SP GRAV (test code = 1.010 mg/dl 1.005-1.025 3255) POCT PH U (test code = 3254) 6.0 mg/dl 5-8 POCT U LEUK EST (test code = Moderate Negative - Negative 3263) POCT U NIT (test code = 3262) Negative Negative - Negative POCT U PROT (test code = Negative Negative - Negative 3259) POCT U GLU (test code = 3256) Negative Negative - Negative POCT U KETONE (test code = Negative Negative - Negative 3258) POCT U UROBILI (test code = 0.2 mg/dl 0.2-1 3260) POCT U BILI (test code = Negative Negative - Negative 3261) POCT U BLD (test code = 3257) Negative Negative - Negative POCT U COLOR (test code = yellow 3266) POCT U APPEAR (test code = clear 3267) Lab Interpretation (test code Abnormal = 51860-1) [facility]ownUS RETROPERITONEAL [id number] 19:05:13 HISTORY: Right renal cyst. The patient gave a history of recurrent UTI. TECHNIQUE: Both kidneys are evaluated in multiple planes with the patientin different positions. FINDINGS: Both kidneys appear to be of normal size and shape with nohydronephrosis, perinephric fluid collection detected. Right kidney is 10.6x 4.0 x 4.5 cm in size and left kidney 10.6 x 4.2 x 3.3 cm in size. Cortexof both kidneys is between 11 and 12 mm. Along the anterior cortex at interpolar location of the right kidney, 11 mmcyst was detected. High amplitude echoes are seen along the posterior wallof the cyst which could be ca lcifications. Quick look at the urinary bladder showed very poorly distended urinarybladder. CONCLUSIONS: 11 mm cyst in the lateral interpolar right kidney withpossible calcification in its wall which is a new finding. This could bedue to Bosniak type II renal cyst which should be monitored either by CTscan or by ultrasound in 3-4 months.[facility], Radiant Results Inft User - 10/15/2019 2:06 PM CDTHISTORY: Right renal cyst. The patient gave a history of recurrent UTI.TECHNIQUE: Both kidneys are evaluated in multiple planes with the patientin different positions. FINDINGS: Both kidneys appear to be of normal size and shape with nohydronephrosis, perinephric fluid collection detected. Right kidney is 10.6x 4.0 x 4.5 cm in size and left kidney 10.6 x 4.2 x 3.3 cm in size. Cortexof both kidneys is between 11 and 12 mm.Along the anterior cortex at interpolar location of the right kidney, 11 mmcyst was detected. High amplitude echoes are seen along the posterior wallof the cyst which could be calcificatio ns.Quick look at the urinary bladder showed very poorly distended urinarybladder.CONCLUSIONS: 11 mm cyst in the lateral interpolar right kidney withpossible calcification in its wall which is a new finding. This could bedue to Bosniak type II renal cyst which should be monitored either by CTscan or by ultrasound in 3-4 months.[facility]ownPOMA URINALYSIS, [id number] 18:33:00 Test Item Value Reference Range Interpretation Comments POCT U SP GRAV (test code = 1.020 mg/dl 1.005-1.025 3255) POCT PH U (test code = 3254) 7.0 mg/dl 5-8 POCT U LEUK EST (test code = Moderate Negative - Negative 3263) POCT U NIT (test code = 3262) Negative Negative - Negative POCT U PROT (test code = Negative Negative - Negative 3259) POCT U GLU (test code = 3256) Negative Negative - Negative POCT U KETONE (test code = Negative Negative - Negative 3258) POCT U UROBILI (test code = 0.2 mg/dl 0.2-1 3260) POCT U BILI (test code = Negative Negative - Negative 3261) POCT U BLD (test code = 3257) Trace Negative - Negative POCT U COLOR (test code = yellow 3266) POCT U APPEAR (test code = clear 3267) Lab Interpretation (test code Abnormal = 47873-8) [facility] URINALYSIS, [id number] 18:33:00 Test Item Value Reference Range Interpretation Comments POCT U SP GRAV (test code = 1.020 mg/dl 1.005-1.025 3255) POCT PH U (test code = 3254) 7.0 mg/dl 5-8 POCT U LEUK EST (test code = Moderate Negative - Negative 3263) POCT U NIT (test code = 3262) Negative Negative - Negative POCT U PROT (test code = Negative Negative - Negative 3259) POCT U GLU (test code = 3256) Negative Negative - Negative POCT U KETONE (test code = Negative Negative - Negative 3258) POCT U UROBILI (test code = 0.2 mg/dl 0.2-1 3260) POCT U BILI (test code = Negative Negative - Negative 3261) POCT U BLD (test code = 3257) Trace Negative - Negative POCT U COLOR (test code = yellow 3266) POCT U APPEAR (test code = clear 3267) Lab Interpretation (test code Abnormal = 03097-0) [facility] [id number] 19:52:00 Test Item Value Reference Range Interpretation Comments POCT PREG (test code = 1605) negative On board controls acceptable with present C Line (test code = 3574) POCT PREG LOT # (test code = 3575) [id number] POCT PREG TEST DATE (test 10-10-2020 code = 3576) Lab Interpretation (test code = Normal 17008-2) [facility]ownAD,CLC OR LCC ONLY - INFLUENZA A & B DIRECT [id number] 19:34:00 Test Item Value Reference Range Interpretation Comments Influenza A (test code = 79586-9) Negative Negative Influenza B (test code = 69763-0) Negative Negative Lab Interpretation (test code = Normal 51905-7) [id number] 19:22:00 Test Item Value Reference Range Interpretation Comments APPEARANCE (test code = Clear Clear 4977864506) COLOR (test code = Yellow Yellow 8434095522) PH (test code = 4.8-8.0 5559225271) SP GRAVITY (test code = 1.003-1.030 1903627244) GLU U QUAL (test code = Normal Normal 4609616493) BLOOD (test code = Negative Negative 6815001926) KETONES (test code = Negative Negative 2213034664) PROTEIN (test code = Negative Negative 2887-8) UROBILIN (test code = Normal Normal 0219704161) BILIRUBIN (test code = Negative Negative 7033794989) NITRITE (test code = Negative Negative 4543934139) LEUK JO (test code = 500/uL Negative A 1969521757) RBC/HPF (test code = See_Comment [Autom ated message] 3599758449) The system [employer] generated this result transmitted ref erence range: 0 - 3 HP F. The reference range was not used to int erpret this result as normal/abnormal . WBC/HPF (test code = See_Comment H [Autom ated message] 7143567823) The system [employer] generated this result transmitted ref erence range: 0 - 5 HP F. The reference range was not used to int erpret this result as normal/abnormal . BACTERIA (test code = Moderate Negative A 5078400641) SQ EPITH (test code = HPF 2337901305) WBC CLUMPS (test code = <1 See_Comment [Au tomated message] 4412714218) The system [employer] generated this result transmitted ref erence range: <=1 HPF. The reference range was not used to int erpret this result as normal/abnormal . Lab Interpretation (test Abnormal code = 07806-3) [facility]
--- NOTE | 2021-03-29 12:01 | RAD REPORT ---
EXAM DESCRIPTION: RAD - Chest Pa And Lat (2 Views) - 03/29/2021 11:51 am CLINICAL HISTORY: Cough;SOB COMPARISON: CHEST SINGLE VIEW dated 09/05/2014; CHEST PA AND LAT 2 VIEW dated 10/22/2012; CHEST SINGLE VIEW dated 08/02/2012; CHEST PA AND LAT 2 VIEW dated 07/05/2009 FINDINGS: Lines: None. Lungs: No evidence of edema or pneumonia. Pleural: No significant pleural effusions or pneumothorax. Cardiac: The heart size is within normal limits. Bones: No acute fractures. Other: IMPRESSION: No acute cardiopulmonary disease.
[2021-03-29 12:02] LABS: SARS-COV-2 RT PCR POSITIVE (NEGATIVE)
--- NOTE | 2021-03-29 12:17 | ER ---
Nurse's Notes [facility] Name: Marilyn Cardoza Age: 30 yrs Sex: Female : 1990 Arrival Date: 03/29/2021 Time: 09:28 Bed 12 Private MD: Diagnosis: Coronavirus infection, unspecified Presentation: 03/29 09:40 Chief complaint: Patient states: body aches, chest discomfort, ABD pain, fever, sore vg1 throat and cough x 3 days. Denies NVD. Took a home Covid test and results are Positive; states 'unsure if it really is positive bc the line was real faint' . Coronavirus screen: Vaccine status: Patient reports receiving the 2nd dose of the covid vaccine. Client denies travel out of the [place] in the last 14 days. Client presents with at least one sign or symptom that may indicate coronavirus-19. Standard/surgical mask placed on the client. Client reports previous positive COVID test result. Date of collection: March 28, 2021 home test. Ebola Screen: Patient negative for fever greater than or equal to 101.5 degrees Fahrenheit, and additional compatible Ebola Virus Disease symptoms. Initial Sepsis Screen: Does the patient meet any 2 criteria? Yes Does the patient have a suspected source of infection? No. Patient's initial sepsis screen is negative. Risk Assessment: Do you want to hurt yourself or someone else? Patient reports no desire to harm self or others. Onset of symptoms was March 26, 2021. 09:40 Method Of Arrival: Ambulatory vg1 09:40 Acuity: HERMINIA 4 vg1 Triage Assessment: 09:44 General: Appears in no apparent distress. comfortable, Behavior is calm, cooperative. vg1 Pain: Complains of pain in generaliz body. Cardiovascular: Patient's skin is warm and dry. Respiratory: Airway is patent Respiratory effort is even, unlabored. 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 - Social history:: Smoking status: Reported history of juuling and/or vaping. Vital Signs: 09:40 BP 121 / 93; Pulse 86; Resp 16; Temp 99.1(O); Pulse Ox 98% ; Weight 72.57 kg; Height 5 vg1 ft. 5 in. (165.10 cm); Pain 7/10; 09:40 Body Mass Index 26.63 (72.57 kg, 165.10 cm) vg1 ED Course: 09:28 Patient arrived in ED. ja2 09:44 Triage completed. vg1 09:44 Arm band placed on. vg1 09:48 COVID swab sent to lab. Flu and/or RSV swab sent to lab. Strep swab sent to lab. vg1 11:19 Ronald Rosales NP is PHCP. pm1 11:19 Rafat Lipscomb MD is Attending Physician. pm1 11:20 Patient placed in an exam room, on a stretcher. ll1 11:51 Chest Pa And Lat (2 Views) XRAY In Process Unspecified. EDMS 12:05 Notified Nurse Practitioner and/or Physician Navy Material Inspector of Notified Charge Nurse of 1 Covid +. 12:28 Mita Malone, ERROL is Primary Nurse. ld1 Administered Medications: No medications were administered Outcome: 12:17 Discharge ordered by MD. pm1 12:28 Patient left the ED. ld1 Signatures: Dispatcher [employer] EDMS Ronald Rosales NP RESEARCH ASSISTANT MEMBER pm1 Rhiannon Gray RN RN vg1 Lizette Webb RN RN [facility] Mita Malone, ERROL [place] ld1 Milagro Rags[facility] Corrections: (The following items were deleted from the chart) 09:45 09:44 Home Meds: control for Influenza; vg1 vg1
--- NOTE | 2021-03-29 12:17 | EDPHYS ---
Physician Documentation [facility] Name: Marilyn Cardoza Age: 30 yrs Sex: Female : 1990 Arrival Date: 03/29/2021 Time: 09:28 Bed 12 Private MD: ED Physician Rafat Lipscomb HPI: 03/29 11:36 This 30 yrs old Female presents to ER via Ambulatory with complaints of Pain All Over, pm1 Chest Pain, Fever, Sore Throat, Cough. 11:36 The patient or guardian reports cough. pm1 11:36 Onset: The symptoms/episode began/occurred 3 day(s) ago. Severity of symptoms: in the pm1 emergency department the symptoms are unchanged. Modifying factors: The symptoms are alleviated by OTC cold preparation, Tylenol, the symptoms are aggravated by nothing. Associated signs and symptoms: Pertinent positives: chest pain, with cough, with breathing, abdominal pain, Pertinent negatives: diarrhea, fever, sore throat, vomiting. The patient has not experienced similar symptoms in the past. The patient has not recently seen a physician. 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 - Social history:: Smoking status: Reported history of juuling and/or vaping. ROS: 11:36 Back: Negative for injury and pain, : Negative for injury, bleeding, discharge, and pm1 swelling, MS/Extremity: Negative for injury and deformity, Skin: Negative for injury, rash, and discoloration, Neuro: Negative for headache, weakness, numbness, tingling, and seizure. 11:36 Constitutional: Positive for body aches, fever. 11:36 Cardiovascular: Positive for chest pain. 11:36 Respiratory: Positive for cough, shortness of breath, Negative for wheezing. 11:36 Abdomen/GI: Positive for abdominal pain, of the abdomen diffusely, Negative for nausea, vomiting, and diarrhea, constipation. 11:36 All other systems are negative. Exam: 11:36 Constitutional: This is a well developed, well nourished patient who is awake, alert, pm1 and in no acute distress. Head/Face: Normocephalic, atraumatic. 11:36 Back: No spinal tenderness. No costovertebral tenderness. Full range of motion. Skin: Warm, dry with normal turgor. Normal color with no rashes, no lesions, and no evidence of cellulitis. MS/ Extremity: Pulses equal, no cyanosis. Neurovascular intact. Full, normal range of motion. 11:36 Eyes: Exam is negative for acute changes, Extraocular movements: no acute changes, Conjunctiva: no acute changes, no injection. 11:36 ENT: Exam is negative for acute changes, Mouth: no acute changes, Lips: normal, moist, Oral mucosa: normal, pink and intact, moist, Posterior pharynx: no acute changes, Airway: normal, Tonsils: are normal in appearance, peritonsillar mass, is not appreciated. 11:36 Cardiovascular: Exam negative for acute changes, Rate: normal, Rhythm: regular, Pulses: no pulse deficits are appreciated, Heart sounds: normal, normal S1and S2. 11:36 Respiratory: Exam negative for acute changes, respiratory distress, shortness of breath, Breath sounds: are clear throughout. 11:36 Abdomen/GI: Inspection: abdomen appears normal, Palpation: soft, in all quadrants, mild abdominal tenderness, in the abdomen diffusely. 11:36 Neuro: Exam negative for acute changes, Orientation: is normal, Mentation: is normal, Motor: is normal, moves all fours. Vital Signs: 09:40 BP 121 / 93; Pulse 86; Resp 16; Temp 99.1(O); Pulse Ox 98% ; Weight 72.57 kg; Height 5 vg1 ft. 5 in. (165.10 cm); Pain 7/10; 09:40 Body Mass Index 26.63 (72.57 kg, 165.10 cm) vg1 MDM: 11:22 Patient medically screened. pm1 11:36 ED course: Patient with complaints of abdominal pain that is chronic. Patient with pm1 tenderness on examination and I offered a CT abd/pelvis and labs. Patient refused. She just wants the chest x-ray and covid swab. 12:14 Data reviewed: vital signs. Data interpreted: Pulse oximetry: on room air is 98 %. pm1 Interpretation: normal. Counseling: I had a detailed discussion with the patient and/or guardian regarding: the historical points, exam findings, and any diagnostic results supporting the discharge/admit diagnosis, lab results, radiology results, the need for outpatient follow up, to return to the emergency department if symptoms worsen or persist or if there are any questions or concerns that arise at home. 03/29 09:48 Order name: COVID-19/FLU A+B (Document "Date of Onset" if Symptomatic); Complete Time: vg1 12:10 03/29 09:48 Order name: Strep; Complete Time: 11:19 vg1 03/29 11:16 Order name: Throat Culture [facility] 03/29 11:35 Order name: Chest Pa And Lat (2 Views) XRAY; Complete Time: 12:10 pm1 Administered Medications: No medications were administered Disposition: 03/30 07:36 Co-signature as Attending Physician, Rafat Lipscomb MD I agree with the assessment and estella plan of care. Disposition Summary: 03/29/21 12:17 Discharge Ordered Location: Home pm1 Problem: new pm1 Symptoms: have improved pm1 Condition: Stable pm1 Diagnosis - Coronavirus infection, unspecified pm1 Followup: pm1 - With: Emergency Department - When: As needed - Reason: Worsening of condition Followup: pm1 - With: Private Physician - When: 2 - 3 days - Reason: Recheck today's complaints, Continuance of care, Re-evaluation by your physician Discharge Instructions: - Discharge Summary Sheet pm1 - COVID-19 pm1 - COVID-19 Frequently Asked Questions pm1 - 10 Things You Can Do to Manage Your COVID-19 Symptoms at Home - [facility] pm1 - COVID-19: Quarantine vs. Isolation - [facility] pm1 Forms: - Medication Reconciliation Form pm1 - Thank You Letter pm1 - Antibiotic Education pm1 - Prescription Opioid Use pm1 Prescriptions: - Guaifenesin AC 10-100 mg/5 mL Oral Liquid - take 10 milliliters by ORAL route every 4 hours As needed; 240 milliliter; pm1 Refills: 0, Product Selection Permitted Signatures: Dispatcher [employer] EDRafat Nye MD MD cha Marinas, Patrick, PROCESS STEWARD PROCESS STEWARD pm1 Rhiannon Gray, ERROL RN vg1 Corrections: (The following items were deleted from the chart) 03/29 09:45 09:44 Home Meds: control for Influenza; vg1 vg1
[2021-03-29 12:36] VITALS: BP 121/93; TEMP 99.1; O2SAT 98
== END 2021-03-29 12:28 | disposition home or self-care (01) ==
LOC: ER 09:20
DX: U07.1 COVID-19 (principal)
CPT/HCPCS: 87070; 87081; 0240U; 71046; 99283

== ENCOUNTER 2021-04-01 00:11 | Emergency (ER) | payer BC ==
--- OUTSIDE RECORDS SUMMARY | 2021-04-01 00:14 | XMS REPORT | Continuity of Care Document ---
:1990 Author Organization [facility] Address [facility] [place] [address] Care Team Providers Name Role Phone Patito Almonte MD Primary Care Provider Allergies Not on Fileafter 04/01/2020 Medications Not on fileafter 04/01/2020 Active Problems Not on fileafter 04/01/2020 Social History Tobacco Use Types Packs/Day Years Used Date Never Assessed Sex Assigned at Date Recorded Not on file after 04/01/2020 Last Filed Vital Signs Not on fileafter 04/01/2020 Plan of Treatment Not on fileafter 04/01/2020 Results Not on fileafter 04/01/2020 Care Teams Executive Office Manager Relationship Specialty Start Date End Date Patito Almonte MD PCP - General Gastroenterology, 11/21/[address] [place] [address] Hepatology and Nutrition [place], [place] [id number] after 04/01/2020
--- OUTSIDE RECORDS SUMMARY | 2021-04-01 00:20 | XMS REPORT | Continuity of Care Document ---
:1990 Author Organization [facility] t Address [address] [place] [address] [address]. [address] [place] [address] Care Team Providers Name Role Phone Suzy [...] Attending Clinician Maude Rojas MD Attending Clinician April Whyte MD Attending Clinician Mamadou NORTON Attending Clinician Unavailable Mak LEON Attending Clinician MAK Attending Clinician Unavailable April WHYTE Attending Clinician Unavailable Penny PAGE Attending Clinician Maude ROJAS Attending Clinician Unavailable DR SARWAT Admitting Clinician Unavailable Payers Payer Name Policy Type Policy Number Effective Date Expiration Date S britney [facility] [id number] 2019 00:00:00 Advance Directives Directive Decision Effective Termination Comments Source Date Date Healthcare Agents on N/A [facility] FileNameRelation[facility] Agent Medical RelationshipCommunicationThea Branch [facility] [phone] (Home) Constantino Feliciano [facility] [phone] (Home) Problems Condition Condition Condition Status Onset Resolution Last Treating Co mments Source Name Details Category Date Date Treatment Clinician Date Nexplanon Nexplanon Disease Active Uni vers in place in place 5 ity of 00:00: [place] 00 Medical Branch Generalize Generalize Disease Active U nivers d anxiety d anxiety 3-09 ity of disorder disorder 00:00: [place] 00 Medical Branch Depression Depression Disease Active U nivers 3-09 ity of 00:00: [place] 00 Medical Branch Nexplanon Nexplanon Disease Active 2017-03 Uni vers removal removal 0-30 ity of 00:00: [place] 00 Medical Branch Intestinal Intestinal Disease Active Overview : Univers metaplasia metaplasia 7-30 Added it y of of gastric of gastric 00:00: automatic [place] mucosa mucosa 00 ally from Medical request Branch for surgery [id number] Abdominal Abdominal Disease Active Overview: Univers pain, pain, 5-23 Added ity of epigastric epigastric 00:00: automatic [place] 00 ally from Medical request Branch for surgery [id number] Nausea and Nausea and Disease Active Overview : Univers vomiting vomiting 5-23 Added ity of in adult in adult 00:00: automatic [place] as 00 ally from Medical request Branch for surgery [id number] Calculus Calculus Disease Active Overview: Un tato of of 7-18 Added ity of gallbladde gallbladde 00:00: automatic [place] r without r without 00 ally from M edical cholecysti cholecysti request B ranch tis tis for without without surgery obstructio obstructio [id number] n n Nexplanon Nexplanon Disease Active Uni vers in place in place 2-23 ity of 00:00: [place] 00 Medical Branch [...] Comments Source Exposure to Not sure University SARS-CoV-2 (event) [facility] Tobacco use and 2020-07-23 2020-07-23 Never used Universit y of exposure 00:00:00 00:00:00 [facility] Cigarettes smoked 2020-07-23 2020-07-23 Univers ity of current (pack per 00:00:00 00:00:00 [facility] [place] [facility] ) - Reported Branch Alcohol intake 2020-07-23 2020-07-23 Current drinker Unive rsity of 00:00:00 00:00:00 of alcohol [facility] (finding) [place] Alcohol Comment 2020-07-13 2020-07-13 rare Universit y of 00:00:00 00:00:00 [facility] Tobacco Comment 2016-10-06 2016-10-06 pt no longer Univers ity of 00:00:00 00:00:00 smoker [facility] History of tobacco 2013-07-04 Cigarette Smoker University of use 00:00:00 [facility] Sex Assigned At [birth year] MD [place] on 00:00:00 00:00:00 Smoking Status Start Date Stop Date Source Former smoker 2020-07-23 00:00:00 2020-07-23 00:00:00 Universi ty of [facility] Medications Ordered Filled Start Stop Current Ordering Indication Dosage Frequency Signature Comments Components Source Medication Medication Date Date Medication? Clinician (SIG) Name Name etonogestre 2020- No [id number] 68mg Univers L 07-23-13 ity of (NEXPLANON) 14:45: 13:36 [place] implant 00 :00 Medical mg [place] etonogestre 2020- No [id number] 68mg 68 mg, Univers L 07-23-13 Subdermal, ity of (NEXPLANON) 14:45: 13:36 ONCE NOW, [place] implant 00 :00 1 dose, Medica l mg Lacey [place] 07/23/20 at 0945, Routine
Use approved by: [employer] etonogestre 2020- No [id number] 68mg Univers L 07-23-13 ity of (NEXPLANON) 14:45: 13:36 [place] implant 68 00 :00 Medical Branch etonogestre 2020- No [id number] 68mg 68 mg, Univers L 07-23 05-13 Subdermal, ity of (NEXPLANON) 14:45: 13:36 ONCE NOW, [place] implant 68 00 :00 1 dose, Medica l mg Lacey Branch 07/23/20 at 0945, Routine
Use approved by: [employer] ergocalcife Yes Take by Un tato rol, 5-03 mouth. ity of vitamin D2, 13:44: [place] (VITAMIN D 11 Medical ORAL) [place] ergocalcife Yes Take by Un tato rol, 5-03 mouth. ity of vitamin D2, 13:44: [place] (VITAMIN D 11 Medical ORAL) [place] ergocalcife Yes Take by Un tato rol, 5-03 mouth. ity of vitamin D2, 13:44: [place] (VITAMIN D 11 Medical ORAL) [place] ergocalcife Yes Take by Un tato rol, 5-03 mouth. ity of vitamin D2, 13:44: [place] (VITAMIN D 11 Medical ORAL) [place] ergocalcife Yes Take by Un tato rol, 5-03 mouth. ity of vitamin D2, 13:44: [place] (VITAMIN D 11 Medical ORAL) Branch ergocalcife Yes Take by Un tato rol, 5-03 mouth. ity of vitamin D2, 13:44: [place] (VITAMIN D 11 Medical ORAL) [place] ergocalcife Yes Take by Un tato rol, 5-03 mouth. ity of vitamin D2, 13:44: [place] (VITAMIN D 11 Medical ORAL) [place] clotrimazol Yes [id number] Apply to Univers e 1 % 5-03 area(s) at ity of topical 00:00: bedtime. [place] cream Medical Branch clotrimazol Yes [id number] Apply to Univers e 1 % 5-03 area(s) at ity of topical 00:00: bedtime. [place] cream Medical Branch clotrimazol Yes [id number] Apply to Univers e 1 % 5-03 area(s) at ity of topical 00:00: bedtime. [place] cream Medical Branch clotrimazol Yes [id number] Apply to Univers e 1 % 5-03 area(s) at ity of topical 00:00: bedtime. [place] [address] Medical Branch propranoloL 2020-0 Yes TAKE 1/2 Un tato 10 mg 2-10 TO 2 ity of tablet 00:00: TABLETS BY [place] [address] [facility] TWICE [place] DAILY NEEDED FOR ANXIETY ARIPiprazol 0 Yes TAKE 1 Univ ers e 10 mg 2-10 TABLET BY ity of tablet 00:00: [place] [address] EVERY DAY Medical AFTER Branch DINNER DIRECTED propranoloL 2020-0 Yes TAKE 1/2 Un tato 10 mg 2-10 TO 2 ity of tablet 00:00: TABLETS BY [place] [address] MOUTH Medical TWICE [place] DAILY NEEDED FOR ANXIETY ARIPiprazol 0 Yes TAKE 1 Univ ers e 10 mg 2-10 TABLET BY ity of tablet 00:00: [facility] EVERY DAY Medical AFTER Branch DINNER DIRECTED propranoloL 2020-0 Yes TAKE 1/2 Un tato 10 mg 2-10 TO 2 ity of tablet 00:00: TABLETS BY [place] [address] [facility] TWICE [place] DAILY NEEDED FOR ANXIETY ARIPiprazol 0 Yes TAKE 1 Univ ers e 10 mg 2-10 TABLET BY ity of tablet 00:00: [place] [address] EVERY DAY Medical AFTER Branch DINNER DIRECTED propranoloL 2020-0 Yes TAKE 1/2 Un tato 10 mg 2-10 TO 2 ity of tablet 00:00: TABLETS BY [address] TWICE [place] DAILY NEEDED FOR ANXIETY ARIPiprazol 2020-0 Yes TAKE 1 Univ ers e 10 mg 2-10 TABLET BY ity of tablet 00:00: [place] [address] EVERY DAY Medical AFTER Branch DINNER DIRECTED propranoloL 2020-0 Yes TAKE 1/2 Un tato 10 mg 2-10 TO 2 ity of tablet 00:00: TABLETS BY [place] [address] MOUTH Medical TWICE [place] DAILY NEEDED FOR ANXIETY ARIPiprazol 2020-0 Yes TAKE 1 Univ ers e 10 mg 2-10 TABLET BY ity of tablet 00:00: [place] [address] EVERY DAY Medical AFTER Branch DINNER DIRECTED propranoloL 2020-0 Yes TAKE 1/2 Un tato 10 mg 2-10 TO 2 ity of tablet 00:00: TABLETS BY [place] [address] MOUTH Medical TWICE [place] DAILY NEEDED FOR ANXIETY ARIPiprazol 2021-0 Yes TAKE 1 Univ ers e 10 mg 2-10 TABLET BY ity of tablet 00:00: MOUTH EVERY DAY Medical AFTER Branch DINNER DIRECTED propranoloL Yes TAKE 1/2 Un tato 10 mg 2-10 TO 2 ity of tablet 00:00: TABLETS BY 00 MOUTH Medical TWICE Branch DAILY NEEDED FOR ANXIETY ARIPiprazol Yes TAKE 1 Univ ers e 10 mg 2-10 TABLET BY ity of tablet 00:00: MOUTH 00 EVERY DAY Medical AFTER Branch DINNER DIRECTED iohexol 2019- 2020- No 120mL 120 mL, Unive rs (OMNIPAQUE 1-13 - Intravenou it y of 350 15:00: 14:53 s, ONCE, 1 [place] BULK-150 00 :00 dose, Fri Medica l mL) 01/24/20 Branch injection at 0900, 120 mL Routine MULTIVITAMI Yes Take by Un tato N ORAL 9-17 mouth. ity of 18:50: [place] 25 Medical Branch ergocalcife 2019-0 Yes Take by Un tato rol, 9-17 mouth. ity of vitamin D2, 18:50: [place] (VITAMIN D 25 Medical ORAL) Branch MULTIVITAMI 2019-0 Yes Take by Un tato N ORAL 9-17 mouth. ity of 18:50: [place] 25 Medical Branch ergocalcife 2019-0 Yes Take by Un tato rol, 9-17 mouth. ity of vitamin D2, 18:50: [place] (VITAMIN D 25 Medical ORAL) Branch MULTIVITAMI 2019-0 Yes Take by Un tato N ORAL 9-17 mouth. ity of 18:50: [place] 25 Medical Branch ergocalcife 2019-0 Yes Take by Un tato rol, 9-17 mouth. ity of vitamin D2, 18:50: [place] (VITAMIN D 25 Medical ORAL) Branch MULTIVITAMI 2020-0 Yes Take by Un tato N ORAL 9-17 mouth. ity of 18:50: [place] 25 Medical Branch ergocalcife 2020-0 Yes Take by Un tato rol, 9-17 mouth. ity of vitamin D2, 18:50: [place] (VITAMIN D 25 Medical ORAL) Branch MULTIVITAMI 2020-0 Yes Take by Un tato N ORAL 9-17 mouth. ity of 18:50: [place] 25 Medical Branch ergocalcife 2020-0 Yes Take by Un tato rol, 9-17 mouth. ity of vitamin D2, 18:50: [place] (VITAMIN D 25 Medical ORAL) Branch MULTIVITAMI 2020-0 Yes Take by Un tato N ORAL 9-17 mouth. ity of 18:50: [place] 25 Medical Branch ergocalcife 2020-0 Yes Take by Un tato rol, 9-17 mouth. ity of vitamin D2, 18:50: [place] (VITAMIN D 25 Medical ORAL) Branch MULTIVITAMI 2020-0 Yes Take by Un tato N ORAL 9-17 mouth. ity of 18:50: [place] 25 Medical Branch MULTIVITAMI 2020-0 Yes Take by Un tato N ORAL 9-17 mouth. ity of 18:50: [place] 25 Medical Branch MULTIVITAMI 2020-0 Yes Take by Un tato N ORAL 9-17 mouth. ity of 18:50: [place] 25 Medical Branch MULTIVITAMI 2020-0 Yes Take by Un tato N ORAL 9-17 mouth. ity of 18:50: [place] 25 Medical Branch MULTIVITAMI 2020-0 Yes Take by Un tato N ORAL 9-17 mouth. ity of 18:50: [place] 25 Medical Branch MULTIVITAMI 2020-0 Yes Take by Un tato N ORAL 9-17 mouth. ity of 18:50: [place] 25 Medical Branch MULTIVITAMI 2020-0 Yes Take by Un tato N ORAL 9-17 mouth. ity of 18:50: [place] 25 Medical Branch LOESTRIN FE 2020-0 Yes [id number] 1{tbl} Take 1 Univers 1 mg-20 mcg 9-17 tablet by ity of (21)/75 mg 00:00: mouth [place] (7) tablet 00 daily. Medical Branch LOESTRIN FE 2020-0 Yes [id number] 1{tbl} Take 1 Univers 1 mg-20 mcg 9-17 tablet by ity of (21)/75 mg 00:00: mouth [place] (7) tablet 00 daily. Medical Branch LOESTRIN FE 2020-0 Yes [id number] 1{tbl} Take 1 Univers 1 mg-20 mcg 9-17 tablet by ity of (21)/75 mg 00:00: mouth [place] (7) tablet 00 daily. Medical Branch LOESTRIN FE 2020-0 Yes [id number] 1{tbl} Take 1 Univers 1 mg-20 mcg 9-17 tablet by ity of (21)/75 mg 00:00: mouth [place] (7) tablet 00 daily. [facility] LOESTRIN FE Yes [id number] 1{tbl} Take 1 Univers 1 mg-20 mcg 9-17 tablet by ity of (21)/75 mg 00:00: mouth [place] (7) tablet 00 daily. [facility] LOESTRIN FE Yes [id number] 1{tbl} Take 1 Univers 1 mg-20 mcg 9-17 tablet by ity of (21)/75 mg 00:00: mouth [place] (7) tablet 00 daily. [facility] LOESTRIN FE 2020- No [id number] 1{tbl} Take 1 Univers 1 mg-20 mcg 9-17 05-03 tablet by it y of (21)/75 mg 00:00: 00:00 mouth [place] (7) tablet 00 :00 daily. [facility] LOESTRIN FE 2020- No [id number] 1{tbl} Take 1 Univers 1 mg-20 mcg 9-17 05-03 tablet by it y of (21)/75 mg 00:00: 00:00 mouth [place] (7) tablet 00 :00 daily. [facility] LOESTRIN FE 2020- No [id number] 1{tbl} Take 1 Univers 1 mg-20 mcg 9-17 05-03 tablet by it y of (21)/75 mg 00:00: 00:00 mouth [place] (7) tablet 00 :00 daily. [facility] SERTraline 0 Yes TK 1 T PO Un tato 50 mg 8-27 QD UTD ity of tablet 00:00: [address] [facility] Branch SERTraline 2020-0 Yes TK 1 T PO Un tato 50 mg 8-27 QD UTD ity of tablet 00:00: 00 [facility] SERTraline 2020-0 Yes TK 1 T PO Un tato 50 mg 8-27 QD UTD ity of tablet 00:00: 00 [facility] SERTraline 2020-0 Yes TK 1 T PO Un tato 50 mg 8-27 QD UTD ity of tablet 00:00: 00 [facility] SERTraline 2020-0 Yes TK 1 T PO Un tato 50 mg 8-27 QD UTD ity of tablet 00:00: [place] 00 Medical Branch SERTraline 2020-0 Yes TK 1 T PO Un tato 50 mg 8-27 QD UTD ity of tablet 00:00: [place] Medical [facility] SERTraline 2020-0 Yes TK 1 T PO Un tato 50 mg 8-27 QD UTD ity of tablet 00:00: [place] [facility] Branch SERTraline 2020-0 Yes TK 1 T PO Un tato 50 mg 8-27 QD UTD ity of tablet 00:00: [place] [facility] SERTraline 2020-0 Yes TK 1 T PO Un tato 50 mg 8-27 QD UTD ity of tablet 00:00: [place] Medical [place] SERTraline 2020-0 Yes TK 1 T PO Un tato 50 mg 8-27 QD UTD ity of tablet 00:00: [place] [facility] SERTraline 2020-0 Yes TK 1 T PO Un tato 50 mg 8-27 QD UTD ity of tablet 00:00: [place] [facility] Branch SERTraline 2020-0 Yes TK 1 T PO Un tato 50 mg 8-27 QD UTD ity of tablet 00:00: [place] [facility] Branch SERTraline 2020-0 Yes TK 1 T PO Un tato 50 mg 8-27 QD UTD ity of tablet 00:00: [place] [facility] Nitrofurant 2020-0 Yes [id number] 100mg Take 1 Univers oin&Nit. 7-20 capsule by ity o f Macrocryst 00:00: [place] 2 [place] 100 mg 00 (two) Medical capsule times Branch daily with meals. Nitrofurant 2020-0 Yes [id number] 100mg Take 1 Univers oin&Nit. 7-20 capsule by ity o f Macrocryst 00:00: mouth 2 [place] 100 mg 00 (two) Medical capsule times Branch daily with meals. Nitrofurant 2020-0 Yes [id number] 100mg Take 1 Univers oin&Nit. 7-20 capsule by ity o f Macrocryst 00:00: mouth 2 [place] 100 mg 00 (two) Medical capsule times Branch daily with meals. Nitrofurant 2020-0 Yes [id number] 100mg Take 1 Univers oin&Nit. 7-20 capsule by ity o f Macrocryst 00:00: mouth 2 [place] 100 mg 00 (two) Medical capsule times Branch daily with meals. Nitrofurant 2020-0 Yes [id number] 100mg Take 1 Univers oin&Nit. 7-20 capsule by ity o f Macrocryst 00:00: mouth 2 [place] 100 mg 00 (two) Medical capsule times Branch daily with meals. Nitrofurant 2020-0 Yes [id number] 100mg Take 1 Univers oin&Nit. 7-20 capsule by ity o f Macrocryst 00:00: mouth 2 [place] 100 mg 00 (two) Medical capsule times Branch daily with meals. Nitrofurant 2020-0 Yes [id number] 100mg Take 1 Univers oin&Nit. 7-20 capsule by ity o f Macrocryst 00:00: mouth 2 [place] 100 mg 00 (two) Medical capsule times Branch daily with meals. Nitrofurant 2020-0 Yes [id number] 100mg Take 1 Univers oin&Nit. 7-20 capsule by ity o f Macrocryst 00:00: mouth 2 [place] 100 mg 00 (two) Medical capsule times Branch daily with meals. Nitrofurant 2020-0 Yes [id number] 100mg Take 1 Univers oin&Nit. 7-20 capsule by ity o f Macrocryst 00:00: mouth 2 [place] 100 mg 00 (two) Medical capsule times Branch daily with meals. Nitrofurant 2020-0 Yes [id number] 100mg Take 1 Univers oin&Nit. 7-20 capsule by ity o f Macrocryst 00:00: mouth 2 [place] 100 mg 00 (two) Medical capsule times Branch daily with meals. Nitrofurant 2020-0 Yes [id number] 100mg Take 1 Univers oin&Nit. 7-20 capsule by ity o f Macrocryst 00:00: mouth 2 [place] 100 mg 00 (two) Medical capsule times Branch daily with meals. Nitrofurant 2020-0 Yes [id number] 100mg Take 1 Univers oin&Nit. 7-20 capsule by ity o f Macrocryst 00:00: mouth 2 [place] 100 mg 00 (two) Medical capsule times Branch daily with meals. Nitrofurant 2020-0 Yes [id number] 100mg Take 1 Univers oin&Nit. 7-20 capsule by ity o f Macrocryst 00:00: mouth 2 [place] 100 mg 00 (two) Medical capsule times Branch daily with meals. Nitrofurant 2020-0 Yes [id number] 100mg Take 1 Univers oin&Nit. 7-20 capsule by ity o f Macrocryst 00:00: mouth 2 [place] 100 mg 00 (two) Medical capsule times Branch daily with meals. Nitrofurant 2020-0 Yes [id number] 100mg Take 1 Univers oin&Nit. 7-20 capsule by ity o f Macrocryst 00:00: mouth 2 [place] 100 mg 00 (two) Medical capsule times Branch daily with meals. Nitrofurant 2020-0 Yes [id number] 100mg Take 1 Univers oin&Nit. 7-20 capsule by ity o f Macrocryst 00:00: mouth 2 [place] 100 mg 00 (two) Medical capsule times Branch daily with meals. Nitrofurant 2020-0 Yes [id number] 100mg Take 1 Univers oin&Nit. 7-20 capsule by ity o f Macrocryst 00:00: mouth 2 [place] 100 mg 00 (two) Medical capsule times Branch daily with meals. Nitrofurant 2020-0 Yes [id number] 100mg Take 1 Univers oin&Nit. 7-20 capsule by ity o f Macrocryst 00:00: mouth 2 [place] 100 mg 00 (two) Medical capsule times Branch daily with meals. Nitrofurant 2020-0 Yes [id number] 100mg Take 1 Univers oin&Nit. 7-20 capsule by ity o f Macrocryst 00:00: mouth 2 [place] 100 mg 00 (two) Medical capsule times Branch daily with meals. Nitrofurant 2020-0 Yes [id number] 100mg Take 1 Univers oin&Nit. 7-20 capsule by ity o f Macrocryst 00:00: mouth 2 [place] 100 mg 00 (two) Medical capsule times Branch daily with meals. cholestyram 2020-0 2020- No [id number] 1{packe Take 1 Univers ine 4 gram 09-16 08-07 t} Packet by ity of packet 00:00: 04:59 mouth 2 [place] 00 :00 (two) Medical times Branch daily for 30 days. cholestyram 2020-0 2020- No [id number] 1{packe Take 1 Univers ine 4 gram 7 08-07 t} Packet by ity of packet 00:00: 04:59 mouth 2 [place] 00 :00 (two) Medical times Branch daily for 30 days. cholestyram 2020-0 2020- No [id number] 1{packe Take 1 Univers ine 4 gram 7-07 08-07 t} Packet by ity of packet 00:00: 04:59 mouth 2 [place] 00 :00 (two) Medical times Branch daily for 30 days. cholestyram 2019-0 2020- No [id number] 1{packe Take 1 Univers ine 4 gram 7-07 08-07 t} Packet by ity of packet 00:00: 04:59 mouth 2 [place] 00 :00 (two) Medical times Branch daily for 30 days. cholestyram 2020-0 2020- No [id number] 1{packe Take 1 Univers ine 4 gram 7-07 08-07 t} Packet by ity of packet 00:00: 04:59 mouth 2 [place] 00 :00 ([facility]) Medical times Branch daily for 30 days. cholestyram 2019-0 2020- No [id number] 1{packe Take 1 Univers ine 4 gram 7-07 08-07 t} Packet by ity of packet 00:00: 04:59 mouth 2 [place] 00 :00 ([facility]) Medical times Branch daily for 30 days. cholestyram 2019-0 2020- No [id number] 1{packe Take 1 Univers ine 4 gram 7-07 08-07 t} Packet by ity of packet 00:00: 04:59 mouth 2 [place] 00 :00 ([facility]) Medical times Branch daily for 30 days. cholestyram 2019-0 2020- No [id number] 1{packe Take 1 Univers ine 4 gram 7-07 08-07 t} Packet by ity of packet 00:00: 04:59 mouth 2 [place] 00 :00 ([facility]) Medical times Branch daily for 30 days. cholestyram 2020-0 2020- No [id number] 1{packe Take 1 Univers ine 4 gram 7-07 08-07 t} Packet by ity of packet 00:00: 04:59 mouth 2 [place] 00 :00 (two) Medical times Branch daily for 30 days. cholestyram 2020-0 2020- No [id number] 1{packe Take 1 Univers ine 4 gram 7-07 08-07 t} Packet by ity of packet 00:00: 04:59 mouth 2 [place] 00 :00 ([facility]) Medical times Branch daily for 30 days. cholestyram 2020-0 2020- No [id number] 1{packe Take 1 Univers ine 4 gram - 08-07 t} Packet by ity of packet 00:00: 04:59 mouth 2 [place] 00 :00 (two) Medical times Branch daily for 30 days. ergocalcife 2020-0 2020- No [id number] Take by Univers rol, 3-17 03-17 mouth. ity of vitamin D2, 18:46: 00:00 [place] (VITAMIN D 15 :00 Medical ORAL) Branch ondansetron 2020-0 Yes [id number] 4mg Take 1 Univers (ZOFRAN 3-17 tablet by ity of ODT) 4 mg 00:00: mouth [place] disintegrat 00 every 8 Medic al ing tablet (eight) Branch hours as needed for Nausea and Vomiting (N/V). ondansetron 2020-0 Yes [id number] 4mg Take 1 Univers (ZOFRAN 3-17 tablet by ity of ODT) 4 mg 00:00: mouth [place] disintegrat 00 every 8 Medic al ing tablet (eight) Branch hours as needed for Nausea and Vomiting (N/V). ondansetron 2020-0 Yes [id number] 4mg Take 1 Univers (ZOFRAN 3-17 tablet by ity of ODT) 4 mg 00:00: mouth [place] disintegrat 00 every 8 Medic al ing tablet (eight) Branch hours as needed for Nausea and Vomiting (N/V). ondansetron 2020-0 Yes [id number] 4mg Take 1 Univers (ZOFRAN 3-17 tablet by ity of ODT) 4 mg 00:00: mouth [place] disintegrat 00 every 8 Medic al ing tablet (eight) Branch hours as needed for Nausea and Vomiting (N/V). ondansetron 2020-0 Yes [id number] 4mg Take 1 Univers (ZOFRAN 3-17 tablet by ity of ODT) 4 mg 00:00: mouth [place] disintegrat 00 every 8 Medic al ing tablet (eight) Branch hours as needed for Nausea and Vomiting (N/V). ondansetron 2020-0 Yes [id number] 4mg Take 1 Univers (ZOFRAN 3-17 tablet by ity of ODT) 4 mg 00:00: mouth [place] disintegrat 00 every 8 Medic al ing tablet (eight) Branch hours as needed for Nausea and Vomiting (N/V). ondansetron 2020-0 Yes [id number] 4mg Take 1 Univers (ZOFRAN 3-17 tablet by ity of ODT) 4 mg 00:00: mouth [place] disintegrat 00 every 8 Medic al ing tablet (eight) Branch hours as needed for Nausea and Vomiting (N/V). ondansetron 2020-0 Yes [id number] 4mg Take 1 Univers (ZOFRAN 3-17 tablet by ity of ODT) 4 mg 00:00: mouth [place] disintegrat 00 every 8 Medic al ing tablet (eight) Branch hours as needed for Nausea and Vomiting (N/V). ondansetron 2020-0 Yes [id number] 4mg Take 1 Univers (ZOFRAN 3-17 tablet by ity of ODT) 4 mg 00:00: mouth [place] disintegrat 00 every 8 Medic al ing tablet (eight) Branch hours as needed for Nausea and Vomiting (N/V). ondansetron 2020-0 Yes [id number] 4mg Take 1 Univers (ZOFRAN 3-17 tablet by ity of ODT) 4 mg 00:00: mouth [place] disintegrat 00 every 8 Medic al ing tablet (eight) Branch hours as needed for Nausea and Vomiting (N/V). ondansetron 2020-0 Yes [id number] 4mg Take 1 Univers (ZOFRAN 3-17 tablet by ity of ODT) 4 mg 00:00: mouth [place] disintegrat 00 every 8 Medic al ing tablet (eight) Branch hours as needed for Nausea and Vomiting (N/V). ondansetron 2020-0 Yes [id number] 4mg Take 1 Univers (ZOFRAN 3-17 tablet by ity of ODT) 4 mg 00:00: mouth [place] disintegrat 00 every 8 Medic al ing tablet (eight) Branch hours as needed for Nausea and Vomiting (N/V). ondansetron 2020-0 Yes [id number] 4mg Take 1 Univers (ZOFRAN 3-17 tablet by ity of ODT) 4 mg 00:00: mouth [place] disintegrat 00 every 8 Medic al ing tablet (eight) Branch hours as needed for Nausea and Vomiting (N/V). ondansetron 2020-0 Yes [id number] 4mg Take 1 Univers (ZOFRAN 3-17 tablet by ity of ODT) 4 mg 00:00: mouth [place] disintegrat 00 every 8 Medic al ing tablet (eight) Branch hours as needed for Nausea and Vomiting (N/V). ondansetron 2020-0 Yes [id number] 4mg Take 1 Univers (ZOFRAN 3-17 tablet by ity of ODT) 4 mg 00:00: mouth [place] disintegrat 00 every 8 Medic al ing tablet (eight) Branch hours as needed for Nausea and Vomiting (N/V). ondansetron 2020-0 Yes [id number] 4mg Take 1 Univers (ZOFRAN 3-17 tablet by ity of ODT) 4 mg 00:00: mouth [place] disintegrat 00 every 8 Medic al ing tablet (eight) Branch hours as needed for Nausea and Vomiting (N/V). ondansetron 2020-0 Yes [id number] 4mg Take 1 Univers (ZOFRAN 3-17 tablet by ity of ODT) 4 mg 00:00: mouth [place] disintegrat 00 every 8 Medic al ing tablet (eight) Branch hours as needed for Nausea and Vomiting (N/V). ondansetron 2020-0 Yes [id number] 4mg Take 1 Univers (ZOFRAN 3-17 tablet by ity of ODT) 4 mg 00:00: mouth [place] disintegrat 00 every 8 Medic al ing tablet (eight) Branch hours as needed for Nausea and Vomiting (N/V). ondansetron 2020-0 Yes [id number] 4mg Take 1 Univers (ZOFRAN 3-17 tablet by ity of ODT) 4 mg 00:00: mouth [place] disintegrat 00 every 8 Medic al ing tablet (eight) Branch hours as needed for Nausea and Vomiting (N/V). ondansetron 2020-0 Yes [id number] 4mg Take 1 Univers (ZOFRAN 3-17 tablet by ity of ODT) 4 mg 00:00: mouth [place] disintegrat 00 every 8 Medic al ing tablet (eight) Branch hours as needed for Nausea and Vomiting (N/V). ondansetron 2020-0 Yes [id number] 4mg Take 1 Univers (ZOFRAN 3-17 tablet by ity of ODT) 4 mg 00:00: mouth [place] disintegrat 00 every 8 Medic al ing tablet (eight) Branch hours as needed for Nausea and Vomiting (N/V). ondansetron 2020-0 Yes [id number] 4mg Take 1 [facility] (ZOFRAN 3-17 tablet by ity of ODT) 4 mg 00:00: mouth [place] disintegrat 00 every 8 Medic al ing tablet (eight) Branch hours as needed for Nausea and Vomiting (N/V). ondansetron 2020-0 Yes [id number] 4mg Take 1 [facility] (ZOFRAN 3-17 tablet by ity of ODT) 4 mg 00:00: mouth [place] disintegrat 00 every 8 Medic al ing tablet (eight) Branch hours as needed for Nausea and Vomiting (N/V). ondansetron 2020-0 Yes [id number] 4mg Take 1 [facility] (ZOFRAN 3-17 tablet by ity of ODT) 4 mg 00:00: mouth [place] disintegrat 00 every 8 Medic al ing tablet (eight) Branch hours as needed for Nausea and Vomiting (N/V). ondansetron 2020-0 Yes [id number] 4mg Take 1 [facility] (ZOFRAN 3-17 tablet by ity of ODT) 4 mg 00:00: mouth [place] disintegrat 00 every 8 Medic al ing tablet (eight) Branch hours as needed for Nausea and Vomiting (N/V). ondansetron 2020-0 Yes [id number] 4mg Take 1 [facility] (ZOFRAN 3-17 tablet by ity of ODT) 4 mg 00:00: mouth [place] disintegrat 00 every 8 Medic al ing tablet (eight) Branch hours as needed for Nausea and Vomiting (N/V). ondansetron 2020-0 Yes [id number] 4mg Take 1 [facility] (ZOFRAN 3-17 tablet by ity of ODT) 4 mg 00:00: mouth [place] disintegrat 00 every 8 Medic al ing tablet (eight) Branch hours as needed for Nausea and Vomiting (N/V). ondansetron 2020-0 Yes [id number] 4mg Take 1 [facility] (ZOFRAN 3-17 tablet by ity of ODT) 4 mg 00:00: mouth [place] disintegrat 00 every 8 Medic al ing tablet (eight) Branch hours as needed for Nausea and Vomiting (N/V). cephALEXin 2020-0 2020- No [id number] 500mg Take 1 [facility] (KEFLEX) 3-17 03-28 capsule by ity of 500 mg 00:00: 04:59 mouth 4 [place] capsule 00 :00 (four) Medical times Branch daily for 10 days. ergocalcife 2020-0 Yes [id number] Take by Univers rol, 3-09 mouth. ity of vitamin D2, 20:42: [place] (VITAMIN D 06 Medical ORAL) Branch ergocalcife 2020-0 Yes [id number] Take by Univers rol, 3-09 mouth. ity of vitamin D2, 20:42: [place] (VITAMIN D 06 Medical ORAL) Branch ergocalcife 2020-0 Yes [id number] Take by Univers rol, 3-09 mouth. ity of vitamin D2, 20:42: [place] (VITAMIN D 06 Medical ORAL) Branch ergocalcife 2020-0 Yes [id number] Take by Univers rol, 3-09 mouth. ity of vitamin D2, 20:42: [place] (VITAMIN D 06 Medical ORAL) Branch ranitidine Yes [id number] 150mg Take 1 [facility] (ZANTAC) 9-26 tablet by ity of 150 mg 00:00: mouth 2 [place] tablet 00 (two) Medical times Branch daily. Follow up with your MD for further evaluation and treatment. ranitidine Yes [id number] 150mg Take 1 [facility] (ZANTAC) 9-26 tablet by ity of 150 mg 00:00: mouth 2 [place] tablet 00 (two) Medical times Branch daily. Follow up with your MD for further evaluation and treatment. ranitidine Yes [id number] 150mg Take 1 [facility] (ZANTAC) 9-26 tablet by ity of 150 mg 00:00: mouth 2 [place] tablet 00 (two) Medical times Branch daily. Follow up with your MD for further evaluation and treatment. ranitidine Yes [id number] 150mg Take 1 [facility] (ZANTAC) 9-26 tablet by ity of 150 mg 00:00: mouth 2 [place] tablet 00 (two) Medical times Branch daily. Follow up with your MD for further evaluation and treatment. phenazopyri 2018- Yes [id number] 200mg Take 1 [facility] dine 200 mg 9-26 tablet by ity of tablet 00:00: mouth 3 [place] 00 (three) Medical times Branch daily. ondansetron 2018- Yes [id number] 4mg Take 1 [facility] (ZOFRAN 9-26 tablet by ity of ODT) 4 mg 00:00: mouth [place] disintegrat 00 every 8 Medic al ing tablet (eight) Branch hours as needed for Nausea and Vomiting (N/V). ranitidine 2018- Yes [id number] 150mg Take 1 [facility] (ZANTAC) - tablet by ity of 150 mg 00:00: mouth 2 [place] tablet 00 (two) Medical times Branch daily. Follow up with your MD for further evaluation and treatment. ciprofloxac 2018- Yes [id number] 500mg Take 1 [facility] in HCl 500 12-06 tablet by ity of mg tablet 00:00: mouth 2 [place] 00 (two) Medical times Branch daily. ondansetron Yes [id number] 4mg Take 1 [facility] (ZOFRAN - tablet by ity of ODT) 4 mg 00:00: mouth [place] disintegrat 00 every 8 Medic al ing tablet (eight) Branch hours as needed for Nausea and Vomiting (N/V). ranitidine Yes [id number] 150mg Take 1 [facility] (ZANTAC) 12-06 tablet by ity of 150 mg 00:00: mouth 2 [place] tablet 00 (two) Medical times Branch daily. Follow up with your MD for further evaluation and treatment. ranitidine 2020- No [id number] 150mg Take 1 [facility] (ZANTAC) 12-06-17 tablet by ity o f 150 mg 00:00: 00:00 mouth 2 [place] tablet 00 :00 (two) Medical times Branch daily. Follow up with your MD for further evaluation and treatment. ondansetron 2020- No [id number] 4mg Take 1 [facility] (ZOFRAN 12-06- tablet by ity of ODT) 4 mg 00:00: 00:00 mouth [place] disintegrat 00 :00 every 8 Medic al ing tablet (eight) Branch hours as needed for Nausea and Vomiting (N/V). phenazopyri 2018- 2020- No [id number] 200mg Take 1 [facility] dine 200 mg 12-06- tablet by it y of tablet 00:00: 00:00 mouth 3 [place] 00 :00 (three) Medical times Branch daily. ondansetron 2018- 2020- No [id number] 4mg Take 1 [facility] (ZOFRAN 12-06- tablet by ity of ODT) 4 mg 00:00: 00:00 mouth [place] disintegrat 00 :00 every 8 Medic al ing tablet (eight) Branch hours as needed for Nausea and Vomiting (N/V). ranitidine 2018-2019- No [id number] 150mg Take 1 [facility] (ZANTAC) 12-06- tablet by ity o f 150 mg 00:00: 00:00 mouth 2 [place] tablet 00 :00 (two) Medical times Branch daily. Follow up with your MD for further evaluation and treatment. ciprofloxac 2018- 2020- No [id number] 500mg Take 1 [facility] in HCl 500 12-06 tablet by ity of mg tablet 00:00: 00:00 mouth 2 [place] :[place] (two) Medical times Branch daily. ondansetron 2018- 2020- No [id number] 4mg Take 1 [facility] (ZOFRAN 12-06 tablet by ity of ODT) 4 mg 00:00: 00:00 mouth [place] disintegrat 00 :00 every 8 Medic al ing tablet (eight) Branch hours as needed for Nausea and Vomiting (N/V). phenazopyri 2018- 2020- No [id number] 200mg Take 1 [facility] dine 200 mg 12-06 tablet by it y of tablet 00:00: 00:00 mouth 3 [place] 00 :00 (three) Medical times Branch daily. ondansetron 2018-2019- No [id number] 4mg Take 1 [facility] (ZOFRAN 12-06 tablet by ity of ODT) 4 mg 00:00: 00:00 mouth [place] disintegrat 00 :00 every 8 Medic al ing tablet (eight) Branch hours as needed for Nausea and Vomiting (N/V). ranitidine 2018- 2020- No [id number] 150mg Take 1 [facility] (ZANTAC) 12-06 tablet by ity o f 150 mg 00:00: 00:00 mouth 2 [place] tablet 00 :00 (two) Medical times Branch daily. Follow up with your MD for further evaluation and treatment. ciprofloxac 2018- 2020- No [id number] 500mg Take 1 [facility] in HCl 500 12-06 tablet by ity of mg tablet 00:00: 00:00 mouth 2 [place] 00 :[place] (two) Medical times Branch daily. NORETHINDRO Yes [id number] 1{tbl} TAKE 1 [facility] NE 0.35 mg 2-06 TABLET BY ity of tablet 00:00: MOUTH [place] DAILY Medical Branch NORETHINDRO Yes [id number] 1{tbl} TAKE 1 [facility] NE 0.35 mg 2-06 TABLET BY ity of tablet 00:00: [facility] DAILY Medical Branch NORETHINDRO Yes [id number] 1{tbl} TAKE 1 [facility] NE 0.35 mg 2-06 TABLET BY ity of tablet 00:00: MOUTH DAILY Medical Branch [facility] Yes [id number] 1{tbl} TAKE 1 [facility] NE 0.35 mg 2-06 TABLET BY ity of tablet 00:00: [facility] DAILY [facility] Branch [facility] [id number] 1{tbl} TAKE 1 [facility] NE 0.35 mg 2-06 TABLET BY ity of tablet 00:00: [facility] DAILY Medical Branch [facility] Yes [id number] 1{tbl} TAKE 1 [facility] NE 0.35 mg 2-06 TABLET BY ity of tablet 00:00: MOUTH [place] DAILY Medical Branch [facility] [id number] 1{tbl} TAKE 1 [facility] NE 0.35 mg 2-06 TABLET BY ity of tablet 00:00: [facility] DAILY Medical Branch [facility] Yes [id number] 1{tbl} TAKE 1 [facility] NE 0.35 mg 2-06 TABLET BY ity of tablet 00:00: [facility] DAILY Medical Branch NORETHINDRO Yes [id number] 1{tbl} TAKE 1 [facility] NE 0.35 mg 2-06 TABLET BY ity of tablet 00:00: [facility] DAILY Medical Branch NORETHINDRO Yes [id number] 1{tbl} TAKE 1 [facility] NE 0.35 mg 2-06 TABLET BY ity of tablet 00:00: [facility] DAILY Medical Branch NORETHINDRO Yes [id number] 1{tbl} TAKE 1 [facility] NE 0.35 mg 2-06 TABLET BY ity of tablet 00:00: [facility] DAILY Medical Branch [facility] Yes [id number] 1{tbl} TAKE 1 [facility] NE 0.35 mg 2-06 TABLET BY ity of tablet 00:00: MOUTH [place] DAILY Medical [facility] Yes [id number] 1{tbl} TAKE 1 [facility] NE 0.35 mg 2-06 TABLET BY ity of tablet 00:00: MOUTH [place] DAILY Medical [facility] Yes [id number] 1{tbl} TAKE 1 [facility] NE 0.35 mg 2-06 TABLET BY ity of tablet 00:00: MOUTH [place] DAILY Medical [facility] Yes [id number] 1{tbl} TAKE 1 [facility] NE 0.35 mg 2-06 TABLET BY ity of tablet 00:00: [facility] DAILY Medical [facility] Yes [id number] 1{tbl} TAKE 1 [facility] NE 0.35 mg 2-06 TABLET BY ity of tablet 00:00: [facility] DAILY [facility] Yes [id number] 1{tbl} TAKE 1 [facility] NE 0.35 mg 2-06 TABLET BY ity of tablet 00:00: [facility] DAILY Medical [facility] Yes [id number] 1{tbl} TAKE 1 [facility] NE 0.35 mg 2-06 TABLET BY ity of tablet 00:00: [facility] DAILY [facility] Yes [id number] 1{tbl} TAKE 1 [facility] NE 0.35 mg 2-06 TABLET BY ity of tablet 00:00: [facility] DAILY [facility] Yes [id number] 1{tbl} TAKE 1 [facility] NE 0.35 mg 2-06 TABLET BY ity of tablet 00:00: [facility] DAILY Medical [facility] Yes [id number] 1{tbl} TAKE 1 [facility] NE 0.35 mg 2-06 TABLET BY ity of tablet 00:00: [facility] [id number] 1{tbl} TAKE 1 [facility] NE 0.35 mg 2-06 09-17 TABLET BY ity of tablet 00:00: 00:00 [facility] [place] 00 :00 DAILY Medical [facility] 2020- No [id number] 1{tbl} TAKE 1 [facility] NE 0.35 mg 2-06 -17 TABLET BY ity of tablet 00:00: 00:00 MOUTH [place] 00 :00 DAILY Medical Branch amitriptyli 2019-0 Yes 20mg Take 2 Univ ers ne 10 mg 2-05 tablets by ity o f tablet 00:00: mouth at [place] 00 bedtime. Medical Branch amitriptyli 2019-0 Yes 20mg Take 2 Univ ers ne 10 mg 2-05 tablets by ity o f tablet 00:00: mouth at [place] 00 bedtime. Medical Branch amitriptyli 2019-0 Yes 20mg Take 2 Univ ers ne 10 mg 2-05 tablets by ity o f tablet 00:00: mouth at [place] 00 bedtime. Medical Branch amitriptyli 2019-0 Yes 20mg Take 2 Univ ers ne 10 mg 2-05 tablets by ity o f tablet 00:00: mouth at [place] 00 bedtime. Medical Branch amitriptyli 2018-0 Yes 20mg Take 2 Univ ers ne 10 mg 2-05 tablets by ity o f tablet 00:00: mouth at [place] [address] bedtime. Medical Branch amitriptyli 2018-0 Yes 20mg Take 2 Univ ers ne 10 mg 2-05 tablets by ity o f tablet 00:00: mouth at [place] [address] bedtime. Medical Branch amitriptyli 2018-0 Yes 20mg Take 2 [facility] ers ne 10 mg 2-05 tablets by ity o f tablet 00:00: mouth at [place] [address] bedtime. Medical Branch amitriptyli 2019-0 Yes 20mg Take 2 Univ ers ne 10 mg 2-05 tablets by ity o f tablet 00:00: mouth at [place] [address] bedtime. Medical Branch amitriptyli 2019-0 Yes 20mg Take 2 Univ ers ne 10 mg 2-05 tablets by ity o f tablet 00:00: mouth at [place] [address] bedtime. Medical Branch amitriptyli 2019-0 Yes 20mg Take 2 Univ ers ne 10 mg 2-05 tablets by ity o f tablet 00:00: mouth at [place] [address] bedtime. Medical Branch amitriptyli 2019-0 Yes 20mg Take 2 Univ ers ne 10 mg 2-05 tablets by ity o f tablet 00:00: mouth at [place] [address] bedtime. Medical Branch amitriptyli 2019-0 Yes 20mg Take 2 Univ ers ne 10 mg 2-05 tablets by ity o f tablet 00:00: mouth at [place] [address] bedtime. Medical Branch amitriptyli 2019-0 Yes 20mg Take 2 Univ ers ne 10 mg 2-05 tablets by ity o f tablet 00:00: mouth at [place] bedtime. Medical Branch amitriptyli 2019-0 Yes 20mg Take 2 Univ ers ne 10 mg 2-05 tablets by ity o f tablet 00:00: mouth at [place] [address] bedtime. Medical Branch amitriptyli 2019-0 Yes 20mg Take 2 Univ ers ne 10 mg 2-05 tablets by ity o f tablet 00:00: mouth at [place] [address] bedtime. Medical Branch amitriptyli 2019-0 Yes 20mg Take 2 Univ ers ne 10 mg 2-05 tablets by ity o f tablet 00:00: mouth at [place] [address] bedtime. Medical Branch amitriptyli 2019-0 Yes 20mg Take 2 Univ ers ne 10 mg 2-05 tablets by ity o f tablet 00:00: mouth at [place] [address] bedtime. Medical Branch amitriptyli 2019-0 Yes 20mg Take 2 Univ ers ne 10 mg 2-05 tablets by ity o f tablet 00:00: mouth at [place] [address] bedtime. Medical Branch amitriptyli 2019-0 Yes 20mg Take 2 Univ ers ne 10 mg 2-05 tablets by ity o f tablet 00:00: mouth at [place] [address] bedtime. Medical Branch amitriptyli 2019-0 Yes 20mg Take 2 Univ ers ne 10 mg 2-05 tablets by ity o f tablet 00:00: mouth at [place] [address] bedtime. Medical Branch amitriptyli 2019-0 Yes 20mg Take 2 Univ ers ne 10 mg 2-05 tablets by ity o f tablet 00:00: mouth at [place] [address] bedtime. Medical Branch amitriptyli 2019-0 Yes 20mg Take 2 Univ ers ne 10 mg 2-05 tablets by ity o f tablet 00:00: mouth at [place] [address] bedtime. Medical Branch amitriptyli 2019-0 Yes 20mg Take 2 Univ ers ne 10 mg 2-05 tablets by ity o f tablet 00:00: mouth at [place] [address] bedtime. Medical Branch amitriptyli 2019-0 Yes 20mg Take 2 Univ ers ne 10 mg 2-05 tablets by ity o f tablet 00:00: mouth at [place] 00 bedtime. Medical Branch amitriptyli 2018-0 Yes 20mg Take 2 Univ ers ne 10 mg 2-05 tablets by ity o f tablet 00:00: mouth at [place] 00 bedtime. Medical Branch amitriptyli 0 Yes 20mg Take 2 Univ ers ne 10 mg 2-05 tablets by ity o f tablet 00:00: mouth at [place] 00 bedtime. Medical Branch amitriptyli 2018-0 Yes 20mg Take 2 Univ ers ne 10 mg 2-05 tablets by ity o f tablet 00:00: mouth at [place] 00 bedtime. Medical Branch amitriptyli 0 Yes 20mg Take 2 Univ ers ne 10 mg 2-05 tablets by ity o f tablet 00:00: mouth at [place] [address] bedtime. Medical Branch amitriptyli 0 Yes 20mg Take 2 Univ ers ne 10 mg 2-05 tablets by ity o f tablet 00:00: mouth at [place] [address] bedtime. Medical Branch amitriptyli 2018-0 Yes 20mg Take 2 Univ ers ne 10 mg 2-05 tablets by ity o f tablet 00:00: mouth at [place] [address] bedtime. Medical Branch amitriptyli 0 Yes 20mg Take 2 Univ ers ne 10 mg 2-05 tablets by ity o f tablet 00:00: mouth at [place] [address] bedtime. Medical Branch amitriptyli 0 Yes 20mg Take 2 Univ ers ne 10 mg 2-05 tablets by ity o f tablet 00:00: mouth at [place] [address] bedtime. Medical Branch amitriptyli 2018-0 Yes 20mg Take 2 Univ ers ne 10 mg 2-05 tablets by ity o f tablet 00:00: mouth at [place] [address] bedtime. Medical Branch amitriptyli 0 Yes 20mg Take 2 Univ ers ne 10 mg 2-05 tablets by ity o f tablet 00:00: mouth at [place] 00 bedtime. Medical Branch ergocalcife 2017-0 Yes [id number] Take by [facility] rol, 9-13 mouth. ity of vitamin D2, 17:06: [place] (VITAMIN D 25 Medical ORAL) Branch methylcellu 2018-0 Yes 1{packe Take 1 U [...] needed for Nausea and Vomiting (N/V). ondansetron 2018- 2020- No 4mg Take 1 Uni vers (ZOFRAN) 4 6-21 03-17 tablet by ity of mg tablet 00:00: 00:00 mouth [place] 00 :00 every 8 Medical (eight) Branch hours as needed for Nausea and Vomiting (N/V). Immunizations Ordered Filled Immunization Date Status Comments [facility] e Immunization Name Name SARS-COV-2 COVID-19 2020-06-23 Completed Unive rsity of PFIZER VACCINE 00:00:00 [facility] SARS-COV-2 COVID-19 2020-06-23 Completed Unive rsity of PFIZER VACCINE 00:00:00 [facility] SARS-COV-2 COVID-19 2020-06-23 Completed Unive rsity of PFIZER VACCINE 00:00:00 [facility] SARS-COV-2 COVID-19 2020-06-23 Completed Unive rsity of PFIZER VACCINE 00:00:00 [facility] SARS-COV-2 COVID-19 2020-06-23 Completed Unive rsity of PFIZER VACCINE 00:00:00 [facility] SARS-COV-2 COVID-19 2020-06-23 Completed Unive rsity of PFIZER VACCINE 00:00:00 [facility] SARS-COV-2 COVID-19 2020-06-23 Completed Unive rsity of PFIZER VACCINE 00:00:00 [facility] SARS-COV-2 COVID-19 2020-06-23 Completed Unive rsity of PFIZER VACCINE 00:00:00 [facility] SARS-COV-2 COVID-19 2020-06-02 Completed Unive rsity of PFIZER VACCINE 00:00:00 [facility] SARS-COV-2 COVID-19 2020-06-02 Completed Unive rsity of PFIZER VACCINE 00:00:00 [facility] SARS-COV-2 COVID-19 2020-06-02 Completed Unive rsity of PFIZER VACCINE 00:00:00 [facility] SARS-COV-2 COVID-19 2020-06-02 Completed Unive rsity of PFIZER VACCINE 00:00:00 [facility] SARS-COV-2 COVID-19 2020-06-02 Completed Unive rsity of PFIZER VACCINE 00:00:00 [facility] SARS-COV-2 COVID-19 2020-06-02 Completed Unive rsity of PFIZER VACCINE 00:00:00 [facility] SARS-COV-2 COVID-19 2020-06-02 Completed Unive rsity of PFIZER VACCINE 00:00:00 [facility] SARS-COV-2 COVID-19 2020-06-02 Completed Unive rsity of PFIZER VACCINE 00:00:00 [facility] HPV9 2018-01-09 Completed University of 00:00:00 [facility] HPV9 2018-01-09 Completed University of 00:00:00 [facility] HPV9 2018-01-09 Completed University of 00:00:00 [facility] HPV9 2018-01-09 Completed University of 00:00:00 [facility] Branch HPV9 2018-01-09 Completed University of 00:00:00 [facility] Branch HPV9 2018-01-09 Completed University of 00:00:00 [facility] Branch HPV9 2018-01-09 Completed University of 00:00:00 [facility] HPV9 2018-01-09 Completed University of 00:00:00 [facility] HPV9 2018-01-09 Completed University of 00:00:00 [facility] Branch HPV9 2018-01-09 Completed University of 00:00:00 [facility] Branch HPV9 2018-01-09 Completed University of 00:00:00 [facility] Branch HPV9 2018-01-09 Completed University of 00:00:00 [facility] Branch HPV9 2018-01-09 Completed University of 00:00:00 [facility] Branch HPV9 2018-01-09 Completed University of 00:00:00 [facility] Branch HPV9 2018-01-09 Completed University of 00:00:00 [facility] Branch HPV9 2018-01-09 Completed University of 00:00:00 [facility] Branch HPV9 2018-01-09 Completed University of 00:00:00 [place] [facility] HPV9 2018-01-09 Completed University of 00:00:00 [place] [facility] HPV9 2018-01-09 Completed University of 00:00:00 [place] [facility] HPV9 2018-01-09 Completed University of 00:00: [place] [facility] HPV9 2018-01-09 Completed University of 00:00:00 [place] [facility] HPV9 2018-01-09 Completed University of 00:00:00 [place] [facility] HPV9 2018-01-09 Completed University of 00:00:00 [place] [facility] HPV9 2018-01-09 Completed University of 00:00:00 [place] [facility] HPV9 2018-01-09 Completed University of 00:00:00 [place] [facility] HPV9 2018-01-09 Completed University of 00:00:00 [place] [facility] HPV9 2018-01-09 Completed University of 00:00:00 [place] [facility] HPV9 2018-01-09 Completed University of 00:00:00 [place] [facility] HPV9 2018-01-09 Completed University of 00:00:00 [facility] Branch HPV9 2018-01-09 Completed University of 00:00:00 [facility] Branch HPV9 2018-01-09 Completed University of 00:00:00 [facility] Branch HPV9 2018-01-09 Completed University of 00:00:00 [facility] Branch HPV9 2018-01-09 Completed University of 00:00:00 [facility] Branch HPV9 2018-01-09 Completed University of 00:00:00 [facility] Branch HPV9 2017-10-26 Completed University of 00:00:00 [facility] Branch HPV9 2017-10-26 Completed University of 00:00:00 [place] [facility] HPV9 2017-10-26 Completed University of 00:00:00 [place] [facility] HPV9 2017-10-26 Completed University of 00:00:00 [place] [facility] HPV9 2017-10-26 Completed University of 00:00:00 [place] [facility] HPV9 2017-10-26 Completed University of 00:00:00 [place] [facility] HPV9 2017-10-26 Completed University of 00:00:00 [place] [facility] HPV9 2017-10-26 Completed University of 00:00:00 [facility] Branch HPV9 2017-10-26 Completed University of 00:00:00 [place] [facility] HPV9 2017-10-26 Completed University of 00:00:00 [place] [facility] HPV9 2017-10-26 Completed University of 00:00:00 [facility]9 2017-10-26 Completed University of 00:00:00 [facility] 2017-10-26 Completed University of 00:00:00 [facility] 2017-10-26 Completed University of 00:00:00 [facility] Branch [facility] 2017-10-26 Completed University of 00:00:00 [facility] 2017-10-26 Completed University of 00[facility]00:00 [facility] 2017-10-26 Completed University of 00:00:00 [facility] 2017-10-26 Completed University of 00:00:00 [facility] 2017-10-26 Completed University of 00:00:00 [facility] 2017-10-26 Completed University of 00[facility]00:00 [facility] 2017-10-26 Completed University of 00:00:00 [facility] 2017-10-26 Completed University of 00[facility]00:00 [facility] 2017-10-26 Completed University of 00:00:00 [facility] 2017-10-26 Completed University of 00[facility]00:00 [facility] 2017-10-26 Completed University of 00[facility]00:00 [facility] 2017-10-26 Completed University of 00:00:00 [facility] 2017-10-26 Completed University of 00[facility]00:00 [facility] 2017-10-26 Completed University of 00[facility]00:00 [facility] 2017-10-26 Completed University of 00:00:00 [facility] 2017-10-26 Completed University of 00:00:00 [facility] 2017-10-26 Completed University of 00[facility]00:00 [facility] 2017-10-26 Completed University of 00:00:00 [facility] 2017-10-26 Completed University of 00:00:00 [facility] 2017-10-26 Completed University of 00:00:00 [facility] Pneumococcal 13 2014-11-27 Completed Universit y of Conjugate, PCV13 00:00:00 [place] [facility] (Prevnar 13) Branch Pneumococcal 13 2014-11-27 [...] y of Vaccine Quad IM 3+ 00:00:00 [facility] Influenza Virus 2014-01-17 Completed Universit y of Vaccine Quad IM 3+ 00:00:00 [facility] Influenza Virus 2014-01-17 Completed Universit y of Vaccine Quad IM 3+ 00:00:00 [facility] Influenza Virus 2014-01-17 Completed Universit y of Vaccine Quad IM 3+ 00:00:00 [facility] Influenza Virus 2014-01-17 Completed Universit y of Vaccine [facility] IM 3+ 00:00:00 [facility] Influenza Virus 2014-01-17 Completed Universit y of Vaccine [facility] IM 3+ 00:00:00 [facility] Influenza Virus 2014-01-17 Completed Universit y of Vaccine [facility] IM 3+ 00:00:00 [facility] Influenza Virus 2014-01-17 Completed Universit y of Vaccine [facility] IM 3+ 00:00:00 [facility] Influenza Virus 2014-01-17 Completed Universit y of Vaccine [facility] IM 3+ 00:00:00 [facility] Influenza Virus 2014-01-17 Completed Universit y of Vaccine [facility] IM 3+ 00:00:00 [facility] Influenza Virus 2014-01-17 Completed Universit y of Vaccine [facility] IM 3+ 00:00:00 [facility] Influenza Virus 2014-01-17 Completed Universit y of Vaccine [facility] IM 3+ 00:00:00 [facility] Influenza Virus 2014-01-17 Completed Universit y of Vaccine [facility] IM 3+ 00:00:00 [facility] Influenza Virus 2014-01-17 Completed Universit y of Vaccine [facility] IM 3+ 00:00:00 [facility] Influenza Virus 2014-01-17 Completed Universit y of Vaccine Quad IM 3+ 00:00:00 [facility] Influenza Virus 2014-01-17 Completed Universit y of Vaccine [facility] IM 3+ 00:00:00 [facility] Influenza Virus 2014-01-17 Completed Universit y of Vaccine [facility] IM 3+ 00:00:00 [facility] Influenza Virus 2014-01-17 Completed Universit y of Vaccine [facility] IM 3+ 00:00:00 [facility] Influenza Virus 2014-01-17 Completed Universit y of Vaccine [facility] IM 3+ 00:00:00 [facility] Influenza Virus 2014-01-17 Completed Universit y of Vaccine [facility] IM 3+ 00:00:00 [facility] Influenza Virus 2014-01-17 Completed Universit y of Vaccine Quad IM 3+ 00:00:00 [facility] Influenza Virus 2014-01-17 Completed Universit y of Vaccine Quad IM 3+ 00:00:00 [facility] Influenza Virus 2014-01-17 Completed Universit y of Vaccine [facility] IM 3+ 00:00:00 [facility] Influenza Virus 2014-01-17 Completed Universit y of Vaccine [facility] IM 3+ 00:00:00 [facility] Influenza Virus 2014-01-17 Completed Universit y of Vaccine [facility] IM 3+ 00:00:00 [facility] Influenza Virus 2014-01-17 Completed Universit y of Vaccine [facility] IM 3+ 00:00:00 [facility] Influenza Virus 2014-01-17 Completed Universit y of Vaccine [facility] IM 3+ 00:00:00 [facility] Influenza Virus 2014-01-17 Completed Universit y of Vaccine Quad IM 3+ 00:00:00 [facility] Influenza Virus 2014-01-17 Completed Universit y of Vaccine [facility] IM 3+ 00:00:00 [facility] Influenza Virus 2014-01-17 Completed Universit y of Vaccine [facility] IM 3+ 00:00:00 [facility] Influenza Virus 2014-01-17 Completed Universit y of Vaccine [facility] IM 3+ 00:00:00 [facility] Influenza Virus 2014-01-17 Completed Universit y of Vaccine Quad IM 3+ 00:00:00 [facility] Influenza Virus 2014-01-17 Completed Universit y of Vaccine Quad IM 3+ 00:00:00 [facility] Influenza Virus 2014-01-17 Completed Universit y of Vaccine Quad IM 3+ 00:00:00 [facility] Tdap 2013-11-28 Completed University of 00:00:00 [facility] Tdap 2013-11-28 Completed University of 00:00:00 [facility] Tdap 2013-11-28 Completed University of 00:00:00 [facility] Tdap 2013-11-28 Completed University of 00:00:00 [facility] Tdap 2013-11-28 Completed University of 00:00:00 [facility] Tdap 2013-11-28 Completed University of 00:00:00 [facility] TDAP 2013-11-28 Completed University of 00:00:00 [facility] TDAP 2013-11-28 Completed University of 00:00:00 [facility] TDAP 2013-11-28 Completed University of 00:00:00 [facility] TDAP 2013-11-28 Completed University of 00:00:00 [facility] TDAP 2013-11-28 Completed University of 00:00:00 [facility] TDAP 2013-11-28 Completed University of 00:00:00 [facility] TDAP 2013-11-28 Completed University of 00:00:00 [facility] TDAP 2013-11-28 Completed University of 00:00:00 [facility] TDAP 2013-11-28 Completed University of 00:00:00 [facility] TDAP 2013-11-28 Completed University of 00:00:00 [facility] TDAP 2013-11-28 Completed University of 00:00:00 [facility] TDAP 2013-11-28 Completed University of 00:00:00 [facility] TDAP 2013-11-28 Completed University of 00:00:00 [facility] TDAP 2013-11-28 Completed University of 00:00:00 [facility] TDAP 2013-11-28 Completed University of 00:00:00 [facility] TDAP 2013-11-28 Completed University of 00:00:00 [facility] TDAP 2013-11-28 Completed University of 00:00:00 [facility] TDAP 2013-11-28 Completed University of 00:00:00 [facility] TDAP 2013-11-28 Completed University of 00:00:00 [facility] TDAP 2013-11-28 Completed University of 00:00:00 [facility] TDAP 2013-11-28 Completed University of 00:00:00 [facility] TDAP 2013-11-28 Completed University of 00:00:00 [facility] TDAP 2013-11-28 Completed University of 00:00:00 [facility] TDAP 2013-11-28 Completed University of 00:00:00 [facility] TDAP 2013-11-28 Completed University of 00:00:00 [facility] TDAP 2013-11-28 Completed University of 00:00:00 [facility] TDAP 2013-11-28 Completed University of 00:00:00 [facility] Tdap 2013-11-28 Completed University of 00:00:00 [facility] Vital Signs Vital Name Observation Time Observation Value Comments Source Systolic blood 2020-07-23 13:14:00 117 mm[Hg] Univer sity of pressure [facility] Diastolic blood 2020-07-23 13:14:00 79 mm[Hg] Unive rsity of pressure [facility] Heart rate 2020-07-23 13:14:00 71 /min Universi ty of [facility] Body temperature 2020-07-23 13:14:00 36.83 Rox Univ ersity of [facility] Respiratory rate 2020-07-23 13:14:00 18 /min Univ ersity of [facility] Body height 2020-07-23 13:14:00 165.1 cm Universi ty of [facility] Body weight 2020-07-23 13:14:00 79.379 kg Universi ty of [facility] BMI 2020-07-23 13:14:00 29.12 kg/m2 Universi ty of [facility] Systolic blood 2020-07-13 13:35:00 123 mm[Hg] Univer sity of pressure [facility] Diastolic blood 2020-07-13 13:35:00 81 mm[Hg] Unive rsity of pressure [facility] Heart rate 2020-07-13 13:35:00 69 /min Universi ty of [facility] Body temperature 2020-07-13 13:35:00 36.78 Rox Univ ersity of [facility] Respiratory rate 2020-07-13 13:35:00 18 /min Univ ersity of [facility] Body height 2020-07-13 13:35:00 165.1 cm Universi ty of [facility] Body weight 2020-07-13 13:35:00 80.74 kg Universi ty of [facility] BMI 2020-07-13 13:35:00 29.62 kg/m2 Universi ty of [facility] Systolic blood 2019-11-28 18:41:00 119 mm[Hg] Univer sity of pressure [facility] Diastolic blood 2019-11-28 18:41:00 83 mm[Hg] Unive rsity of pressure [facility] Heart rate 2019-11-28 18:41:00 54 /min Universi ty of [facility] Body temperature 2019-11-28 18:41:00 36.72 Rox Univ ersity of [facility] Respiratory rate 2019-11-28 18:41:00 18 /min Univ ersity of [facility] Body height 2019-11-28 18:41:00 165.1 cm Universi ty of [facility] Body weight 2019-11-28 18:41:00 80.74 kg Universi ty of [facility] BMI 2019-11-28 18:41:00 29.62 kg/m2 Universi ty of [facility] Systolic blood 2019-11-20 18:17:00 108 mm[Hg] Univer sity of pressure [facility] Diastolic blood 2019-11-20 18:17:00 74 mm[Hg] Unive rsity of pressure [facility] Heart rate 2019-11-20 18:17:00 80 /min Universi ty of [facility] Body temperature 2019-11-20 18:17:00 36.83 Rox Univ ersity of [facility] Respiratory rate 2019-11-20 18:17:00 20 /min Univ ersity of [facility] Body height 2019-11-20 18:17:00 167.6 cm Universi ty of [facility] Body weight 2019-11-20 18:17:00 81.647 kg Universi ty of [facility] BMI 2019-11-20 18:17:00 29.05 kg/m2 Universi ty of [facility] Oxygen saturation in 2019-11-20 18:17:00 98 /min University of Arterial blood by [place] [facility] Systolic blood 2019-09-23 18:29:00 108 mm[Hg] Univer sity of pressure [facility] Diastolic blood 2019-09-23 18:29:00 73 mm[Hg] Unive rsity of pressure [facility] Heart rate 2019-09-23 18:29:00 79 /min Universi ty of [facility] Body temperature 2019-09-23 18:29:00 36.28 Rox Univ ersity of [facility] Respiratory rate 2019-09-23 18:29:00 20 /min Univ ersity of [facility] Body height 2019-09-23 18:29:00 167.6 cm Universi ty of [facility] Body weight 2019-09-23 18:29:00 80.65 kg Universi ty of [facility] BMI 2019-09-23 18:29:00 28.70 kg/m2 Universi ty of [facility] Oxygen saturation in 2019-09-23 18:29:00 98 /min University of Arterial blood by [place] [facility] Systolic blood 2019-09-17 20:19:00 120 mm[Hg] Univer sity of pressure [facility] Diastolic blood 2019-09-17 20:19:00 85 mm[Hg] Unive rsity of pressure [facility] Heart rate 2019-09-17 20:19:00 80 /min Universi ty of [facility] Body temperature 2019-09-17 20:19:00 37.06 Rox Univ ersity of [facility] Respiratory rate 2019-09-17 20:19:00 20 /min Univ ersity of [facility] Body height 2019-09-17 20:19:00 165.1 cm Universi ty of [facility] Body weight 2019-09-17 20:19:00 79.652 kg Universi ty of [facility] BMI 2019-09-17 20:19:00 29.22 kg/m2 Universi ty of [facility] Oxygen saturation in 2019-09-17 20:19:00 98 /min University of Arterial blood by [facility] Branch Systolic blood 2019-05-28 19:54:00 128 mm[Hg] Univer sity of pressure [facility] Diastolic blood 2019-05-28 19:54:00 83 mm[Hg] Unive rsity of pressure [facility] Heart rate 2019-05-28 19:54:00 80 /min Universi ty of [facility] Body temperature 2019-05-28 19:54:00 37.39 Rox Univ ersity of [facility] Respiratory rate 2019-05-28 19:54:00 17 /min Univ ersity of [facility] Oxygen saturation in 2019-05-28 19:54:00 98 /min University of Arterial blood by [facility] Branch Body weight 2019-05-28 18:44:00 78.472 kg Universi ty of [facility] BMI 2019-05-28 18:44:00 29.70 kg/m2 Universi ty of [facility] Systolic blood 2019-05-20 20:35:00 112 mm[Hg] Univer sity of pressure [facility] Diastolic blood 2019-05-20 20:35:00 78 mm[Hg] Unive rsity of pressure [facility] Heart rate 2019-05-20 20:35:00 72 /min Universi ty of [facility] Body temperature 2019-05-20 20:35:00 36.94 Rox [facility] Respiratory rate 2019-05-20 20:35:00 18 /min [facility] Body height 2019-05-20 20:35:00 162.6 cm [facility] Body weight 2019-05-20 20:35:00 78.472 kg [facility] BMI 2019-05-20 20:35:00 29.70 kg/m2 [facility] Procedures Procedure Date / Time Performing Clinician Source Performed CONSENT FOR CONTRACEPTION 2020-07-23 05:01:00 Doctor Unassigned, [facility] POCT TEST 2020-07-23 00:00:00 Zeyad Arita [facility] CONSENT TO CONTACT FOR 2020-07-13 13:12:50 Doctor Unassigned, [facility] VOLUNTARY RESEARCH [facility] ABDOMEN PELVIS W WO 2020-01-24 14:52:05 Josie Umana [facility] HB CREATININE BLOOD 2020-01-24 14:34:00 Josie Umana [facility] CONSENT FOR ORAL 2019-11-28 05:01:00 Doctor Holger, [facility] CONTRACEPTIVES [facility] POCT TEST 2019-11-28 00:00:00 [place] Marquez [facility] POCT URINALYSIS AUTO 2019-11-20 18:21:00 Josie Umana [facility] US RETROPERITONEAL 2019-10-15 19:01:12 Josie Umana [facility] COMPLETE [facility] ASSIGNMENT OF BENEFITS 2019-10-15 17:47:45 Doctor Unassigned, Un [facility] POCT URINALYSIS AUTO 2019-09-23 18:32:00 Josie U[facility] POCT TEST 2019-05-28 19:52:00 Dany Francis [facility] URINALYSIS 2019-05-28 18:55:00 Dany Francis [place] [facility] ADC,CLC OR [facility] ONLY - 2019-05-28 18:55:00 Dany Francis [facility] INFLUENZA A & B DIRECT Medical [facility] ranch ANTIGEN NOTICE OF PRIVACY 2019-05-28 18:28:49 Doctor Holger, [facility] PRACTICES [facility] CONSENT/REFUSAL FOR 2019-05-28 18:28:36 Doctor Holger [facility] DIAGNOSIS AND TREATMENT [facility] AGREEMENTS AUTHORIZATIONS 2019-05-23 05:01:00 Doctor Holger, [facility] AND IRREVOCABLE [facility] ASSIGNMENTS (FORM 2001) ASSIGNMENT OF BENEFITS 2019-05-20 20:07:14 Doctor Holger, [facility] Encounters Start End Encounter Admission Attending Care Care Encounter Source Date/Time Date/Time Type Type Clinicians Facility Department ID 2021-01-07 Emergency [facility] [id number] [facility]11 2021-08-11 Outpatient R JIMMY [facility] [id number] Univers 14:00:00 14:00:00 [place] [id number] [facility] 2020-07-23 2020-07-23 Office Juan J [facility] [id number] Univers 07:55:23 08:36:56 Visit Raj La [id number] i ty [id number] [phone] Co dical [address] 2020-07-23 2020-07-23 Outpatient R JUAN J ZEYAD [facility] [id number] Univers 08:00:00 08:00:00 [id number] ity [facility] 2020-07-23 2020-07-23 Outpatient R JUAN J [facility] [id number] Univers 08:00:00 08:00:00 ity [facility] 2020-07-23 2020-07-23 Orders Doctor BOSS [id number] [id number] Univers 00:00:00 00:00:00 Only UnassignedJESSY [id number] ity of [facility] [id number] [place] as [phone] [address] 2020-07-13 2020-07-13 Outpatient R [facility] [id number] Univers 10:45:00 10:45:00 ity [facility] 2020-07-13 2020-07-13 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, Ad[facility] [id number] Univers 09:08:48 09:23:48 Visit Zeyad Arita [id number] ity [facility] [id number] [phone] Co dical nal [address] [facility] 2020-07-13 2020-07-13 Office [facility] [id number] Univers 08:14:14 09:04:02 Visit [place] Bessie [id number] i ty [facility] [id number] [phone] Co dical nal [address] [facility] 2020-07-13 2020-07-13 Outpatient Derick MARQUEZ [facility] [id number] Univers 08:00:00 08:00:00 [place] [id number] [facility] 2020-07-13 2020-07-13 Outpatient Derick MARQUEZ [facility] [id number] Univers 08:00:00 08:00:00 [place] [facility] 2020-07-13 2020-07-13 Orders Doctor BOSS [id number] Univers 00:00:00 00:00:00 Only Unassigned, JESSY [id number] ity of [place] [id number] [place] as [phone] [address] 2020-06-23 2020-06-23 Outpatient Derick MOONEY [facility] [id number] Univers 08:10:00 08:10:00 PAOLA [facility] 2020-06-22 2020-06-22 Outpatient Derick MARQUEZ [facility] [id number] Univers 08:30:00 08:30:00 [place] [id number] [facility] 2020-06-22 2020-06-22 Outpatient Derick MARQUEZ [facility] [id number] Univers 08:30:00 08:30:00 [place] [facility] 2020-06-02 2020-06-02 Outpatient [facility] [id number] Univers 08:00:00 08:00:00 ity [facility] 2020-06-01 2020-06-01 Outpatient R JIMMY, [facility] [id number] Univers 08:30:00 08:30:00 [place] [id number] [facility] 2020-06-01 2020-06-01 Outpatient R JIMMY, [facility] [id number] Univers 08:30[facility]00 [facility] 2020-04-02 Emergency E SARWAT, [facility] [id number] 16:27:00 [facility]:30:[facility] 2020-02-03 2020-02-03 [facility] [id number] Univers 14:45:00 14:45:00 JOSIE [id number] [facility] 2020-02-03 2020-02-03 Outpatient R [facility] [id number] Univers 14:45:00 14:45:00 JOSIE [facility] 2020-01-31 2020-01-31 [facility]patient [facility] [id number] Univers 13:00:00 13:00:00 JOSIE [facility] 2020-01-24 2020-01-24 [facility] [id number] Univers 08:00:00 23:59:00 Encounter [facility]ie [id number] [id number] [facility] [phone] [address] 2020-01-24 2020-01-24 Outpatient [facility] [id number] Univers 10:30:00 10:30:00 JOSIE [id number] [facility] 2020-01-24 2020-01-24 Outpatient R [facility] [id number] Univers 00:00:00 00:00:00 JOSIE [facility] 2019-11-29 2019-11-29 Telephone [facility] [id number] Univers 00:00:00 00:00:00 [place] La [id number] [id number] [phone] [facility] [address] [facility] 2019-11-28 2019-11-28 Office [facility] [id number] Univers 13:17:32 13:58:11 Visit [place] La [id number] i [id number] [phone] [address] 2019-11-28 2019-11-28 Outpatient R JIMMY [facility] [id number] Univers 13:15:00 13:15:00 [place] [id number] ity [facility] 2019-11-28 2019-11-28 Outpatient R JIMMY [facility] [id number] Univers 13:15:00 13:15:00 [place] [facility] 2019-11-28 2019-11-28 Orders Doctor KARYN [id number] Univers 00:00:00 00:00:00 Only Unassigned, JESSY [id number] ity of [place] [id number] [place] as [phone] [address] 2019-11-26 2019-11-26 Refill [facility] 1.2.840.114 [id number] Univers 00:00:00 00:00:00 Elisabet La [id number] [id number] [phone] [facility] [address] [facility] 2019-11-20 2019-11-20 Office [facility] [id number] Univers 12:46:29 13:42:00 Visit Josie La [id number] [id number] [phone] [facility] 204 [facility] 2019-11-20 2019-11-20 Outpatient R GRAMM, [facility] [id number] Univers 13:15:00 13:15:00 JOSIE ity of [facility] 2019-11-20 2019-11-20 Outpatient R GRAMM, [facility] [id number] Univers 13:15:00 13:15:00 JOSIE ity [facility] 2019-11-13 2019-11-13 Outpatient R GRAMM, [facility] [id number] Univers 15:15:00 15:15:00 JOSIE ity of [facility] 2019-11-13 2019-11-13 Outpatient R GRAMM, [facility] [id number] Univers 15:15:00 15:15:00 JOSIE ity [facility] 2019-11-06 2019-11-06 Outpatient R GRAMM, [facility] [id number] Univers 15:00:00 15:00:00 JOSIE [id number] ity [facility] 2019-11-06 2019-11-06 Outpatient R GRAMM, [facility] [id number] Univers 15:00:00 15:00:00 JOSIE ity [facility] 2019-10-21 2019-10-21 Outpatient R GRAMM, [facility] [id number] Univers 13:30:00 13:30:00 JOSIE ity [facility] 2019-10-21 2019-10-21 Outpatient R GRAMM, [facility] [id number] Univers 13:30:00 13:30:00 [facility] 2019-10-16 2019-10-16 Telephone [facility] [id number] Univers 00:00:00 00:00:00 Wondiful A Herreid [id number] [id number] [facility] [phone] Co dical nal 0[address] [facility] 2019-10-15 2019-10-15 [facility] [id number] Univers 12:49:43 23:59:00 Encounter Josie A Herreid [id number] [id number] [phone] [facility] [address] [place] 2019-10-15 2019-10-15 [facility] [id number] Univers 13:00:00 13:00:00 JOSIE [id number] ity of [facility] 2019-10-15 2019-10-15 Outpatient R GRAMM, [facility] [id number] Univers 00:00:00 00:00:00 JOSIE ity [facility] 2019-10-15 2019-10-15 Orders Doctor BOSS [id number] [id number] Univers 00:00:00 00:00:00 Only Unassigned, JESSY [id number] ity of [facility] [id number] [place] as [phone] [address] 2019-09-30 2019-09-30 [facility] [id number] Univers 14:00:00 14:00:00 JOSIE ity [facility] 2019-09-26 2019-09-26 Telephone [facility] [id number] Univers 00:00:00 00:00:00 Josie La [id number] [id number] [phone] Co dical nal [address] [place] [address] 2019-09-23 2019-09-23 Office [facility] [id number] [id number] Univers 13:12:40 13:54:44 Visit Josie La [id number] [id number] [phone] Co dical nal [address] [place] [address] 2019-09-23 2019-09-23 [facility] [id number] Univers 13:15:00 13:15:00 JOSIE [id number] ity [facility] 2019-09-23 2019-09-23 [facility] [id number] Univers 13:15:00 13:15:00 JOSIE rodríguezy [facility] 2019-09-23 2019-09-23 Nurse KARYN Cedillo [id number] [id number] Univers 00:00:00 00:00:00 Triage Miliedgar JIMÉNEZ [id number] it y of [facility] [id number] [place] as [phone] 23 [address] [address] 2019-09-23 2019-09-23 Patient Doctor KARYN [id number] Univers 00:00:00 00:00:00 Secure Msg Unassigned, JESSY 350.1.13.10 ity of [facility] 4.2.7.2.686 Rafael as [phone] [address] 2019-09-17 2019-09-17 [facility] [id number] Univers 15:04:50 16:55:45 Visit Nelly La 350.1.13.10 [place] [facility] [phone] Co dical [address] 2019-09-17 2019-09-17 Outpatient [facility] [id number] Univers 15:00:00 15:00:00 NELLY [id number] ity [facility] 2019-09-17 2019-09-17 Outpatient R MAK [facility] [id number] Univers 15:00:00 15:00:00 NELLY [facility] 2019-08-13 2019-08-13 Outpatient R BUD [facility] [id number] Univers 14:30:00 14:30:00 WONDIFUL [id number] ity o f [facility] 2019-08-13 2019-08-13 Outpatient Derick [facility] [id number] Univers 14:30:00 14:30:00 WONDIFUL ity o f [facility] 2019-05-28 2019-05-28 Emergency [facility] [id number] Univers 13:40:01 14:58:00 Dany [place] 350.1.13.10 [place] [phone] [address] 2019-05-28 2019-05-28 Orders Doctor KARYN [id number] Univers 00:00:00 00:00:00 Only Unassigned, JESSY 350.1.13.10 ity of [facility] 4.2.7.2.686 Rafael as [phone] [address] 2019-05-23 2019-05-23 Outpatient R [facility] [id number] Univers 10:30:00 10:30:00 [id number] ity [facility] 2019-05-23 2019-05-23 Outpatient R ADUM, [facility] [id number] Univers 10:30:00 10:30:00 ELISABET ity [facility] 2019-05-23 2019-05-23 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, Adc Lab [facility] 1.2.840.114 [id number] Univers 10:13:13 10:28:13 Visit Adum, Elisabet [place] 350.1.13.10 [place] [phone] Co dical nal [address] [facility] 2019-05-23 2019-05-23 Orders Doctor BOSS [id number] Univers 00:00:00 00:00:00 Only Unassigned, JESSY 350.1.13.10 ity of [facility] 4.2.7.2.686 [place] as [phone] [address] 2019-05-20 2019-05-20 Office Adum, [facility] [id number] Univers 15:07:52 16:40:16 Visit Elisabet La 350.1.13.10 [place] [phone] Co dical nal [address] [facility] 2019-05-20 2019-05-20 Outpatient ADUM, [facility] [id number] Univers 15:00:00 15:00:00 ELISABET ity [facility] 2019-05-20 2019-05-20 Outpatient R ADUM, [facility] [id number] Univers 15:00:00 15:00:00 ELISABET ity [facility] 2019-05-20 2019-05-20 Orders Doctor BOSS [id number] Univers 00:00:00 00:00:00 Only Unassigned, JESSY 350.1.13.10 [place] of [place] [facility] 4.2.7.2.686 Rafael as [phone] [address] Results Test Description Test Time Test Comments Results Result Comments Source POCT TEST 2020-07-23 13:23:00 Test Item Value Reference Range Interpretation Comme nts POCT PREG (test code = 1605) Negative On board controls acceptable with C Line (test code = 3574) Yes POCT PREG LOT # (test code = 3575) POCT PREG TEST DATE (test code = 3576) [facility] [id number] 13:23:00 Test Item Value Reference Range Interpretation Comments POCT PREG (test code = 1605) Negative On board controls acceptable with C Yes Line (test code = 3574) POCT PREG LOT # (test code = 3575) POCT PREG TEST DATE (test code = 3576) [facility] FOR [facility]OLUNTARY RESEARCH 2020-07-13 13:12:50 Test Item Value Reference Range Interpretation Comments Consent To Contact For Voluntary Yes Research (test code = 4947) [facility] [id number] 12:17:00 Test Item Value Reference Range Interpretation Comments Culture Observations NO BETA HEMOLYTIC (test code = COB1) STREPTOCOCCUS ISOLATED Direct Exam (test code NO STREPTOCOCCUS GROUP = DE1) A ANTIGEN DETECTED DIRECT INFLUENZA A AND B [id number] 17:30:00 Test Item Value Reference Range Interpretation [...] the FDA and the [employer] (CAP) are more stringent than those required for this test. Therefore, the result should be interpreted with caution and close attention to other clinical and epidemiological data URINALYSIS WITH [id number] 17:21:00 Test Item Value Reference Range Interpretation [...] (test code = USPERM) /HPF NONE URINE [id number] 17:08:00 Test Item Value Reference Range Interpretation Comments PREG UR (test code = PGU) NEGATIVE NEGATIVE POCT [id number] 20:07:00 Test Item Value Reference Range Interpretation Comments POCT Creatinine (test code = 0.8 mg/dL 0.5-1.4 9847420470) Lab Interpretation (test code = Normal 38441-9) [facility] Center[facility] ABDOMEN PELVIS W WO [id number] 17:15:281. ?Stable right upper renal pole 1.0 [...] BONES: No acute or suspicious osseous abnormality. [facility], Radiant Results Inft User - 01/24/2020 11:16 [...] enhancement), Bosniak 2. 2. No hydronephrosis or nephrolithiasis.[facility] POCT [id number] 19:03:00 Test Item Value Reference Range Interpretation Comments POCT PREG (test code = 1605) Negative On board controls acceptable with C Yes Line (test code = 3574) POCT PREG LOT # (test code = 3575) POCT PREG TEST DATE (test code = 3576) [facility] [id number] 19:03:00 Test Item Value Reference Range Interpretation Comments POCT PREG (test code = 1605) Negative On board controls acceptable with C Yes Line (test code = 3574) POCT PREG LOT # (test code = 3575) POCT PREG TEST DATE (test code = 3576) [facility] URINALYSIS, [id number] 18:24:00 Test Item Value Reference Range Interpretation [...] 3267) Lab Interpretation (test code Abnormal = 25940-4) [facility] URINALYSIS, [id number] 18:24:00 Test Item Value Reference Range Interpretation [...] 3267) Lab Interpretation (test code Abnormal = 79166-4) [facility] CenterUS RETROPERITONEAL [id number] 19:05:13 HISTORY: Right renal cyst. The patient [...] by CTscan or by ultrasound in 3-4 months.[facility], Radiant Results Inft User - 10/15/2019 [...] by CTscan or by ultrasound in 3-4 months.[facility] URINALYSIS, [id number] 18:33:00 Test Item Value Reference Range Interpretation [...] 3267) Lab Interpretation (test code Abnormal = 04898-9) [facility] URINALYSIS, [id number] 18:33:00 Test Item Value Reference Range Interpretation [...] 3267) Lab Interpretation (test code Abnormal = 54826-6) [facility] [id number] 19:52:00 Test Item Value Reference Range Interpretation Comments POCT PREG (test code = 1605) negative On board controls acceptable with present C Line (test code = 3574) POCT PREG LOT # (test code = 3575) [id number] POCT PREG TEST DATE (test 10-10-2020 code = 3576) Lab Interpretation (test code = Normal 80297-0) [facility] Center[facility],CLC OR [facility] ONLY - INFLUENZA A & B DIRECT [id number] 19:34:00 Test Item Value Reference Range Interpretation Comments Influenza A (test code = 69750-1) Negative Negative Influenza B (test code = 90117-6) Negative Negative Lab Interpretation (test code = Normal 92797-9) [facility] CenterURIN[facility]IS2020-03-17 19:22:00 Test Item Value Reference Range Interpretation Comments APPEARANCE (test code = Clear Clear 3452820050) COLOR (test code = Yellow Yellow 9937631643) PH (test code = 4.8-8.0 6054812772) SP GRAVITY (test code = 1.003-1.030 3015981713) GLU U QUAL (test code = Normal Normal 7211390443) BLOOD (test code = Negative Negative 0483196563) KETONES (test code = Negative Negative 4138857598) PROTEIN (test code = Negative Negative 2887-8) UROBILIN (test code = Normal Normal 3448290980) BILIRUBIN (test code = Negative Negative 9515607686) NITRITE (test code = Negative Negative 7973225266) LEUK JO (test code = 500/uL Negative A 9021681753) RBC/HPF (test code = See_Comment [Autom ated message] 2729434328) The system [employer] generated this result transmitted ref erence range: 0 - 3 HP F. The reference range was not used to int erpret this result as normal/abnormal . WBC/HPF (test code = See_Comment H [Autom ated message] 0717312781) The system [employer] generated this result transmitted ref erence range: 0 - 5 HP F. The reference range was not used to int erpret this result as normal/abnormal . BACTERIA (test code = Moderate Negative A 0225248939) SQ EPITH (test code = HPF 0105292105) WBC CLUMPS (test code = <1 See_Comment [Au tomated message] 2826047610) The system [employer] generated this result transmitted ref erence range: <=1 HPF. The reference range was not used to int erpret this result as normal/abnormal . Lab Interpretation (test Abnormal code = 67750-7) [facility]
--- NOTE | 2021-04-01 01:15 | ER ---
Nurse's Notes [facility] Name: Marilyn Cardoza Age: 30 yrs Sex: Female : 1990 Arrival Date: 04/01/2021 Time: 00:15 Bed 19 Private MD: Diagnosis: Coronavirus infection, unspecified Presentation: 04/01 00:19 Chief complaint: Patient states: dx with covid on Monday, shortness of breath getting sm5 worse tonight. 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 also having chest pain that gets worse with deep inspirations. mother states pt has been forgetful since 11pm. Coronavirus screen: Vaccine status: Patient reports receiving the 2nd dose of the covid vaccine. Client reports previous positive COVID test result. Ebola Screen: No symptoms or risks identified at this time. Initial Sepsis Screen: Does the patient meet any 2 criteria? No. Patient's initial sepsis screen is negative. Does the patient have a suspected source of infection? No. Patient's initial sepsis screen is negative. Risk Assessment: Do you want to hurt yourself or someone else? Patient reports no desire to harm self or others. Onset of symptoms was April 01, 2021. 00:19 Method Of Arrival: Wheelchair 5 00:19 Acuity: HERMINIA 3 sm5 Triage Assessment: 00:24 General: Appears in no apparent distress. Behavior is calm. Pain: Complains of pain in sm5 chest and head. Neuro: No deficits noted. Level of Consciousness is awake, alert, Oriented to person, place, time, situation. Cardiovascular: Reports chest pain. Respiratory: Reports shortness of breath Airway is patent Trachea midline Respiratory effort is even, unlabored, Onset: The symptoms/episode began/occurred gradually, the patient has mild shortness of breath. 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 - Social history:: Smoking status: Reported history of juuling and/or vaping. Screenin: Abuse screen: Denies threats or abuse. Denies injuries from another. Nutritional anil screening: No deficits noted. Tuberculosis screening: No symptoms or risk factors identified. Fall Risk None identified. Assessment: 01:01 General: Appears in no apparent distress. Behavior is calm, cooperative. anil Cardiovascular: No deficits noted. Respiratory: Breath sounds are clear. 01:21 Cardiovascular: Rhythm is sinus rhythm. anil Vital Signs: 00:19 BP 115 / 73; Pulse 87; Resp 18; Temp 98.4; Pulse Ox 98% on R/A; sm5 01:01 BP 100 / 59; Pulse 75; Resp 18; Temp 98.6; Pulse Ox 100% on R/A; Pain 0/10; anil 02:22 BP 102 / 62; Pulse 72; Resp 18; Pulse Ox 100% on R/A; anil ED Course: 00:15 Patient arrived in ED. 00:17 Tanvi Larry FNP-C is PHCP. kb 00:17 Dm Medellin MD is Attending Physician. kb 00:23 Triage completed. sm5 00:24 Arm band placed on left wrist. sm5 00:52 Chest Pa And Lat (2 Views) XRAY In Process Unspecified. EDMS 01:00 Renae Short, RN is Primary Nurse. anil 01:20 Patient has correct armband on for positive identification. Bed in low position. Call anil light in reach. Side rails up X 1. Adult w/ patient. 01:20 No provider procedures requiring assistance completed. anil 02:22 Patient did not have IV access during this emergency room visit. anil Administered Medications: 01:19 Drug: Decadron (dexamethasone) 10 mg Route: IM; Site: right gluteus; anil Outcome: 01:14 Discharge ordered by . kb 01:21 Condition: stable anil 02:22 Discharged to home ambulatory. anil 02:22 Discharge instructions given to patient, Instructed on discharge instructions, Demonstrated understanding of instructions, follow-up care. 02:23 Patient left the ED. anil Signatures: Dispatcher [employer] EDMS Tanvi Larry FNP-C FNP-Ckb Marsh, Wendy Paula Chappell RN RN 5 Renae Short RN RN anil
--- NOTE | 2021-04-01 01:15 | EDPHYS ---
Physician Documentation [facility] Name: Marilyn Cardoza Age: 30 yrs Sex: Female : 1990 Arrival Date: 04/01/2021 Time: 00:15 Bed 19 Private MD: ED Physician Dm Medellin HPI: 04/01 01:13 This 30 yrs old Female presents to ER via Wheelchair with complaints of COVID+, kb Shortness Of Breath. 01:13 The patient or guardian reports cough, that is intermittent, described as mild, kb difficulty breathing, flu symptoms, myalgias. Onset: The symptoms/episode began/occurred 4 day(s) ago. Severity of symptoms: At their worst the symptoms were moderate, in the emergency department the symptoms are unchanged. Modifying factors: The symptoms are alleviated by nothing, the symptoms are aggravated by nothing. Associated signs and symptoms: Pertinent positives: chest pain, fever, Pertinent negatives: diarrhea, ear ache, nausea, rhinorrhea, sore throat, vomiting. The patient has not experienced similar symptoms in the past. The patient has not recently seen a physician. pt reports she was diagnosed with covid on Monday. Has shortness of breath, cough, headache, bodyaches and chest pain with breathing . 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 - Social history:: Smoking status: Reported history of juuling and/or vaping. ROS: 01:12 Abdomen/GI: Negative for abdominal pain, nausea, vomiting, diarrhea, and constipation. kb 01:12 Constitutional: Positive for body aches, fatigue, malaise. 01:12 Cardiovascular: Positive for chest pain, Negative for edema, orthopnea, palpitations, paroxysmal nocturnal dyspnea. 01:12 Respiratory: Positive for cough, shortness of breath. 01:12 Neuro: Positive for headache. 01:12 All other systems are negative. Exam: 01:13 Constitutional: This is a well developed, well nourished patient who is awake, alert, kb and in no acute distress. Head/Face: Normocephalic, atraumatic. ENT: Moist Mucous membranes Cardiovascular: Regular rate and rhythm with a normal S1 and S2. No gallops, murmurs, or rubs. No pulse deficits. Respiratory: Respirations even and unlabored. No increased work of breathing. Talking in full sentences Skin: Warm, dry with normal turgor. Normal color. MS/ Extremity: Pulses equal, no cyanosis. Neurovascular intact. Full, normal range of motion. Neuro: Awake and alert, GCS 15, oriented to person, place, time, and situation. Moves all extremities. Normal gait. Psych: Awake, alert, with orientation to person, place and time. Behavior, mood, and affect are within normal limits. 01:21 ECG was reviewed by the Attending Physician. Vital Signs: 00:19 BP 115 / 73; Pulse 87; Resp 18; Temp 98.4; Pulse Ox 98% on R/A; sm5 01:01 BP 100 / 59; Pulse 75; Resp 18; Temp 98.6; Pulse Ox 100% on R/A; Pain 0/10; anil 02:22 BP 102 / 62; Pulse 72; Resp 18; Pulse Ox 100% on R/A; anil MDM: 00:34 Patient medically screened. kb 01:05 Data reviewed: vital signs, nurses notes. Data interpreted: Pulse oximetry: on room air kb is 98 %. Interpretation: normal. Counseling: I had a detailed discussion with the patient and/or guardian regarding: the historical points, exam findings, and any diagnostic results supporting the discharge/admit diagnosis, radiology results, the need for outpatient follow up, a family practitioner, to return to the emergency department if symptoms worsen or persist or if there are any questions or concerns that arise at home. 04/01 00:24 Order name: Chest Pa And Lat (2 Views) XRAY EC: Rate is 82 beats/min. Rhythm is regular. QRS Connelly is Normal. NE interval is normal at kb 170 msec. QRS interval is normal at 78 msec. QT interval is normal at 350 msec. Administered Medications: :19 Drug: Decadron (dexamethasone) 10 mg Route: IM; Site: right gluteus; anil Disposition: 05:40 Co-signature as Attending Physician, Dm Medellin MD I agree with the assessment and rn plan of care. Attestation: The patient's history, exam findings, diagnostics, and a summary of any interventions or procedures was reviewed in detail with Tanvi FONTANA. Disposition Summary: 04/01/21 01:14 Discharge Ordered Location: Home kb Condition: Stable kb Diagnosis - Coronavirus infection, unspecified kb Followup: kb - With: Emergency Department - When: As needed - Reason: Worsening of condition Followup: kb - With: Private Physician - When: 2 - 3 days - Reason: Recheck today's complaints, Continuance of care, Re-evaluation by your physician Discharge Instructions: - Discharge Summary Sheet kb - Viral Respiratory Infection, Xcwz-[id number]-Gxmt kb - COVID-19 kb Forms: - Medication Reconciliation Form kb - Thank You Letter kb - Antibiotic Education kb - Prescription Opioid Use kb Signatures: Dispatcher [employer] EDVT Tanvi Larry FNP-C FNP-Dm Myles MD MD rn Mazur, Sarah, RN RN [facility] Renae Short, RN RN anil
[2021-04-01] MEDS ORDERED: dexAMETHasone 10 MG/ML VIAL ONE (01:17)
[2021-04-01 02:36] VITALS: BP 102/62; O2SAT 100
--- NOTE | 2021-04-01 07:58 | RAD REPORT ---
EXAM DESCRIPTION: RAD - Chest Pa And Lat (2 Views) - 04/01/2021 12:52 am CLINICAL HISTORY: CHEST PAIN COMPARISON: Chest Pa And Lat (2 Views) dated 03/29/2021; CHEST SINGLE VIEW dated 09/05/2014; CHEST PA AND LAT 2 VIEW dated 10/22/2012; CHEST SINGLE VIEW dated 08/02/2012 FINDINGS: Lines: None. Lungs: No evidence of edema or pneumonia. Pleural: No significant pleural effusions or pneumothorax. Cardiac: The heart size is within normal limits. Bones: No acute fractures. Other: IMPRESSION: No acute cardiopulmonary disease.
[2021-04-05 18:23] VITALS: TEMP 98.6
== END 2021-04-01 02:23 | disposition home or self-care (01) ==
LOC: ER 00:11
DX: U07.1 COVID-19 (principal); Z91.040 Latex allergy status; Z91.048 Other nonmedicinal substance allergy status
CPT/HCPCS: 93005; 71046; 96372; 99284; J1100

== ENCOUNTER 2023-07-13 18:24 | Emergency (ER) | payer OTHER, SELFPAY ==
--- OUTSIDE RECORDS SUMMARY | 2023-07-13 18:27 | XMS REPORT | Continuity of Care Document ---
Author Name Unknown Organization [facility] [place] Address [address] [place] [address] Care Team Providers Care Pedal Assembler Name Role Phone Patito Almonte MD Primary Care Provider [phone] Social History Smoking Status as of 07/13/2023 Tobacco Use Types Packs/Day Years Used Date Smoking Tobacco: Never Assessed Sex and Gender Information Value Date Recorded Sex Assigned at Not on file Gender Identity Not on file Sexual Orientation Not on file after 07/13/2022 Plan of Treatment Not on file after 07/13/2022 Care Teams Pedal Assembler Relationship Specialty Start Date End Date Patito Almonte MD [address] [place] [address] PCP - General Gastroenterology, Hepatology and Nutrition 11/21/18 after 07/13/2022
[2023-07-13] MEDS ORDERED: IBUPROFEN 400 MG TAB ONE (19:39)
[2023-07-13] MEDS ORDERED: NA CHLORIDE 0.9% 500 ML ONE (19:39)
[2023-07-13] MEDS ORDERED: ONDANSETRON 4 MG/2 ML VIAL ONE (19:39)
[2023-07-13 19:47] LABS: Absolute Basophils 0.1 K/uL (0-0.5); Absolute Lymphocytes (CBC) 1.1 K/uL (0.7-4.9); Absolute Neutrophil 8.2 K/uL (1.8-8.0); Basophils % 0.7 % (0-1.3); Eosinophils % 0.4 % (0-4.4); Hematocrit 37.1 % (36.0-45.0); Hemoglobin 12.6 g/dL (12.0-15.0); Lymphocytes % 10.6 % (15.3-44.8); MCH 27.8 pg (27.0-35.0); MCHC 33.9 g/dL (32.0-36.0); MCV 81.9 fL (80-100); MPV 6.5 fL (7.6-11.3); Monocytes % 9.8 % (3.3-12.3); Neutrophils % 78.5 % (41.7-73.7); Platelets 316 thou/uL (152-406); RBC Red Blood Cell Count 4.53 M/uL (3.86-4.86)
--- NOTE | 2023-07-13 19:50 | RAD REPORT ---
EXAM DESCRIPTION: RAD - Chest Single View - 07/13/2023 7:29 pm CLINICAL HISTORY: CHEST PAIN Chest pain. COMPARISON: Chest Pa And Lat (2 Views) dated 04/01/2021; Chest Pa And Lat (2 Views) dated 03/29/2021; CHEST SINGLE VIEW dated 09/05/2014; CHEST PA AND LAT 2 VIEW dated 10/22/2012 FINDINGS: Portable technique limits examination quality. The lungs are grossly clear. The heart is normal in size. No displaced fractures. IMPRESSION: No acute intrathoracic process suspected.
[2023-07-13 20:05] LABS: ALT/SGPT 47 U/L (13-56); AST/SGOT 25 U/L (15-37); Albumin 3.7 g/dL (3.4-5.0); Albumin/Globulin Ratio 0.9 (1.1-1.8); Alkaline Phosphatase 82 U/L (45-117); Anion Gap 8.7 mEq/L (5.0-15.0); BUN Blood Urea Nitrogen 9 mg/dL (7-18); Bicarbonate 25 mEq/L (21-32); Bilirubin Total 1.1 mg/dL (0.2-1.0); Globulin 4.2 g/dL (2.3-3.5); Glomerular Filtration Rate 76 ml/min (=/>90); Glucose Level 97 mg/dL (74-106); Lipase 46 U/L (13-75); Magnesium 2.1 mg/dL (1.6-2.4); Potassium 3.7 mEq/L (3.5-5.1); Protein, Total 7.9 g/dL (6.4-8.2); Sodium Level 135 mEq/L (136-145)
[2023-07-13 20:08] LABS: Troponin High Sensitivity < 3.0 pg/mL (<58.9)
[2023-07-13 20:16] LABS: SARS-CoV-2 Antigen CONTROL BLUE LINE VIS/BG OK; SARS-CoV-2 Antigen Rapid Res Negative (Negative)
[2023-07-13 20:50] LABS: Specific Gravity > 1.030 (1.005-1.030); Urine Bacteria None Seen /HPF (<20); Urine Bilirubin NEGATIVE (Negative); Urine Blood 1+ (Negative); Urine Clarity Extremely Turbid (Clear); Urine Color Yellow (Yellow); Urine Culture Reflex Order NOT NEEDED; Urine Glucose NEGATIVE (Negative); Urine Ketones NEGATIVE (Negative); Urine Microscopic Reflex YN ORDER UMIC; Urine Mucus 2+ /HPF (None Seen); Urine Nitrite NEGATIVE (Negative); Urine Protein 1+ (Negative); Urine Urobilinogen Normal (Normal); Urine WBC <5 /HPF (<5); Urine pH 5.5 (5.0-7.0)
[2023-07-13] MEDS ORDERED: CEFTRIAXONE 1000 MG/VIAL ONE (21:26)
[2023-07-13] MEDS ORDERED: NA CHLORIDE 0.9% 1,000 ML ONE (21:26)
--- NOTE | 2023-07-13 21:52 | RAD REPORT ---
EXAM DESCRIPTION: CT - Stone Protocol - 07/13/2023 9:43 pm CLINICAL HISTORY: Flank pain. Abd pain;Flank pain;Fever COMPARISON: Abdomen Pelvis W Contrast dated 01/01/2019 TECHNIQUE: Axial images were obtained without oral or IV contrast. Lack of contrast limits solid org an and vascular assessment. The [id number]-phqz spans the entirety of the system partially obscuring uppermost abdomen and lung bases. Coronal reformatted images were obtained and reviewed. All CT scans are performed using dose optimization technique as appropriate and may include automated exposure control or mA/KV adjustment according to patient size. FINDINGS: The lower lung gamboa are clear. Cholecystectomy clips. Imaged portions of the liver and spleen show no suspicious findings on non-contrast imaging. The panc reas and adrenal glands are normal. No pathologic lymphadenopathy in the abdomen or pelvis. No urinary tract stones or obstructive uropathy. No bowel obstruction, free air, free fluid or abscess. Normal appendix noted.Moderate stool throughou t the colon. Several upper limit of normal lymph nodes in the fat surrounding the cecum ascending col on. No significant bony abnormality. IMPRESSION: No urinary tract stones or obstructive uropathy. Mild right-sided colitis is possible.
--- NOTE | 2023-07-13 21:58 | EDPHYS ---
Physician Documentation [facility] Name: Marilyn Cardoza Age: 33 yrs Sex: Female : 1990 Arrival Date: 07/13/2023 Time: 18:24 Bed 16 Private MD: ED Physician Rafat Lipscomb HPI: 07/12 20:18 This 33 yrs old Female presents to ER via Ambulatory with complaints of Fever. sd2 20:18 33 yo F presents with CC of fever for the past 3 days with associated nausea and sd2 vomiting and intermittent chest pain and abdominal pain. Endorses syncopal episodes over the past few weeks as well. Reports hx of UTIs and having dysuria. Has been taking Azo without relief. . 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 - Infectious Disease History:: Denies. - Social history:: Smoking status: Patient denies any tobacco usage or history of. ROS: 20:18 Eyes: Negative for injury, pain, redness, and discharge, sd2 20:18 Respiratory: Negative for shortness of breath, cough, wheezing. 20:18 MS/Extremity: Negative for injury and deformity, Skin: Negative for injury, rash, and discoloration, Neuro: Negative for headache, numbness and tingling. 20:18 Constitutional: Positive for body aches, chills, fever, Negative for weight loss, 20:18 Cardiovascular: Positive for chest pain, syncope, Negative for edema, orthopnea, 20:18 Abdomen/GI: Positive for abdominal pain, nausea and vomiting, Negative for rectal bleeding, 20:18 : Positive for urinary symptoms, burning with urination, Exam: 20:18 Constitutional: This is a well developed, well nourished patient who is awake, alert, sd2 and in no acute distress. Head/Face: Normocephalic, atraumatic. Eyes: EOMI, normal conjunctiva bilaterally Chest/axilla: Normal chest wall appearance and motion. Nontender with no deformity. Cardiovascular: Regular rate and rhythm with a normal S1 and S2. No gallops, murmurs, or rubs. 2+ distal pulses. Respiratory: Lungs have equal breath sounds bilaterally, clear to auscultation and percussion. No rales, rhonchi or wheezes noted. No increased work of breathing, no retractions or nasal flaring. Abdomen/GI: Soft, non-tender, with normal bowel sounds. No guarding or rebound. No evidence of tenderness throughout. Positive CVA tenderness bilaterally. Back: No spinal tenderness. No costovertebral tenderness. Full range of motion. Skin: Warm, dry with normal turgor. Normal color with no rashes, no lesions, and no evidence of cellulitis. MS/ Extremity: Pulses equal, no cyanosis. Neurovascular intact. Full, normal range of motion. Psych: Awake, alert, with orientation to person, place and time. Behavior, mood, and affect are within normal limits. 20:18 ECG was reviewed by the Attending Physician. NSR, rate 78, intraventricular block noted which is a change from previous EKG, no clear STEMI criteria, will repeat EKG 21:39 ECG was reviewed by the Attending Physician. [facility] Vital Signs: 18:28 BP 130 / 82; Pulse 106; Resp 20; Temp 100.1(O); Pulse Ox 97% ; Weight 93.71 kg; Height db 5 ft. 5 in. ; Pain 8/10; 20:30 BP 109 / 64; Pulse 72; Resp 16; Temp 97.8(O); Pulse Ox 100% on R/A; jb4 22:00 BP 108 / 56; Pulse 65; Resp 16; Pulse Ox 100% on R/A; jb4 18:28 Body Mass Index 34.38 (93.71 kg, 165.1 cm) db 18:28 Pain Scale: Adult db MDM: 18:49 Patient medically screened. sd2 20:18 Differential diagnosis: Differential diagnosis includes but is not limited to: ACS, sd2 DVT/PE, pneumothorax, dissection, musculoskeletal, anxiety, anemia, electrolyte abnormality, pneumonia, CHF, COPD among others. Data reviewed: vital signs, nurses notes, lab test result(s), EKG, radiologic studies. I considered the following discharge prescriptions or medication management in the emergency department Medications were administered in the Emergency Department. See MAR. 20:21 Transition of care: After a detail discussion of the patient's case, care is sd2 transferred to Rafat Lipscomb MD. 07/12 19:12 Order name: CBC with Diff; Complete Time: 20:00 nh07/12 19:12 Order name: CMP; Complete Time: 20:21 nh07/12 19:12 Order name: Magnesium; Complete Time: 20:21 nh07/12 19:12 Order name: Troponin High Sensitivity; Complete Time: 20:21 nh07/12 19:12 Order name: Urinalysis w/ reflexes; Complete Time: 21:11 nh2 07/12 19:12 Order name: Test, Urine; Complete Time: 21:11 nh07/12 19:12 Order name: Lipase; Complete Time: 20:21 nh2 07/12 19:12 Order name: Flu; Complete Time: 20:21 nh07/12 19:44 Order name: SARS-COV-2 Antigen Rapid; Complete Time: 20:21 EDMS 07/12 20:29 Order name: Blood Culture Adult (2) [facility] 07/12 20:29 Order name: Lactate w/ 2H reflex if indic.; Complete Time: 21:56 [facility] 07/12 19:12 Order name: XRAY Chest (1 view); Complete Time: 20:00 [facility] 07/12 20:51 Order name: CT Stone Protocol; Complete Time: 21:56 [facility] 07/12 20:30 Order name: EKG; Complete Time: 20:30 [facility] 07/12 19:12 Order name: EKG - Nurse/Tech; Complete Time: 19:29 nh07/12 20:30 Order name: EKG - Nurse/Tech; Complete Time: 20:32 [facility] EC:39 Rate is 69 beats/min. Rhythm is regular. QRS Ethel is Normal. [place] interval is normal. QRS estella interval is normal. QT interval is normal. No Q waves. T waves are Normal. No ST changes noted. Clinical impression: Normal ECG and No evidence of ischemia. Interpreted by me. Reviewed by me. Administered Medications: 20:00 Drug: Ondansetron IVP 4 mg IVP once; over 2 minutes Route: IVP; Site: left antecubital; jb4 20:00 Drug: Ibuprofen PO 800 mg PO once Route: PO; jb4 20:05 Drug: NS 0.9% IV 500 ml IV at bolus once Route: IV; Rate: bolus; Site: left antecubital;jb4 21:39 Drug: NS 0.9% IV 1000 ml IV at 1 bolus Per protocol; 1000 mL bolus Route: IV; Rate: 1 jb4 bolus; Site: left antecubital; 22:23 Follow up: Response: No adverse reaction; IV Status: Order to discontinue infusion; IV jb4 Intake: 200ml 21:39 Drug: Rocephin IV 1 grams IV at per protocol once; Given slow IV push per pharmacy jb4 instructions Route: IV; Rate: per protocol; Site: left antecubital; 22:23 Follow up: Response: No adverse reaction jb4 22:14 Drug: Ciprofloxacin PO 500 mg PO once Route: PO; jb4 22:23 Follow up: Response: Medication administered at discharge. jb4 22:14 Drug: metroNIDAZOLE PO 500 mg PO once Route: PO; jb4 22:23 Follow up: Response: Medication administered at discharge. jb4 Disposition Summary: 07/13/23 21:57 Discharge Ordered Notes: Location: Home [place] Problem: new estella Symptoms: have improved estella Condition: Stable estella Diagnosis - Fever, unspecified estella - Dysuria estella - Abdominal pain, Generalized estella - Noninfective gastroenteritis and colitis, unspecified estella Followup: estella - With: Private Physician - When: 2 - 3 days - Reason: Recheck today's complaints, Continuance of care, Re-evaluation by your physician Followup: estella - With: Ilya Banks MD - When: 2 - 3 days - Reason: Recheck today's complaints, Re-evaluation by your physician Discharge Instructions: - Discharge Summary Sheet estella - Abdominal Pain, Adult estella - Dysuria estella - Fever, Adult estella - Flank Pain, Adult estella - Abdominal Pain, Adult, [id number] estella - Fever, Adult, [id number] estella - Colitis [facility] Forms: - Medication Reconciliation Form [facility] - Antibiotic Education estella - Prescription Opioid Use estella - Patient Portal Instructions [facility] - Leadership Thank You Letter [facility] Prescriptions: - ondansetron 4 mg Oral Tablet,disintegrating - take 1 tablet ORAL route every 6-8 hours; 20 tablet; Refills: 0, Product estella Selection Permitted - Flagyl 500 mg Oral tablet - take 1 tablet ORAL route every 8 hours for 7 days; 21 tablet; Refills: 0, estella Product Selection Permitted - Ibuprofen 600 mg Oral Tablet - take 1 tablet ORAL route every 6 hours As needed take with food; 30 tablet; estella Refills: 0, Product Selection Permitted - Cipro 500 mg Oral Tablet - take 1 tablet ORAL route every 12 hours for 7 days; 14 tablet; Refills: 0, [facility] Product Selection Permitted - dicyclomine 20 mg Oral tablet - take 1 tablet ORAL route 4 times per day; 28 tablet; Refills: 0, Product estella Selection Permitted Signatures: Dispatcher [employer] EDRafat Nye MD MD cha Bryson, James, RN RN jb4 Shannan Beltre MD MD sd2 Candy Khan, ERROL RN db Corrections: (The following items were deleted from the chart) 19:13 19:13 CBC+H.LAB.BRZ ordered. EDMS EDMS 19:13 19:13 COMPREHENSIVE METABOLIC PANEL+C.LAB.BRZ ordered. EDMS EDMS 19:13 19:13 MAGNESIUM+C.LAB.BRZ ordered. EDMS EDMS 19:13 19:13 Troponin High Sensitivity+C.LAB.BRZ ordered. EDMS EDMS 19:13 19:13 Urinalysis+U.LAB.BRZ ordered. EDMS EDMS 19:13 19:13 Test, Urine+UC.LAB.BRZ ordered. EDMS EDMS 19:13 19:13 LIPASE+C.LAB.BRZ ordered. EDMS EDMS 19:13 19:13 Influenza Screen (A \T\ B)+BA.LAB.BRZ ordered. EDMS EDMS 19:13 19:13 Chest Single View+RAD.RAD.BRZ ordered. EDMS EDMS 19:44 19:13 SARS-COV-2 RT PCR+MOL.LAB.BRZ ordered. EDMS EDMS
--- NOTE | 2023-07-13 21:58 | ER ---
Nurse's Notes [facility] Name: Marilyn Cardoza Age: 33 yrs Sex: Female : 1990 Arrival Date: 07/13/2023 Time: 18:24 Bed 16 Private MD: Diagnosis: Fever, unspecified;Dysuria;Abdominal pain, Generalized;Noninfective gastroenteritis and colitis, unspecified Presentation: 07/12 18:28 Chief complaint: Patient states: FEVER 101.4 TODAY . STATES TOOK TYLENOL 2 HOURS AGO db FOR FEVER. DIARRHEA STARTED THIS WEEK. Coronavirus screen: Client denies travel out of the [place] in the last 14 days. At this time, the client does not indicate any symptoms associated with coronavirus-19. Ebola Screen: Patient negative for fever greater than or equal to 101.5 degrees Fahrenheit, and additional compatible Ebola Virus Disease symptoms Patient denies exposure to infectious person. Patient denies travel to an Ebola-affected area in the 21 days before illness onset. No symptoms or risks identified at this time. Initial Sepsis Screen: Does the patient meet any 2 criteria? HR > 90 bpm. No. Patient's initial sepsis screen is negative. Does the patient have a suspected source of infection? No. Patient's initial sepsis screen is negative. Risk Assessment: Do you want to hurt yourself or someone else? Patient reports no desire to harm self or others. Onset of symptoms was July 13, 2023. 18:28 Method Of Arrival: Ambulatory db 18:28 Acuity: HERMINIA 3 db Triage Assessment: 18:31 General: Appears in no apparent distress. comfortable, Behavior is calm, cooperative. db Pain: Complains of pain in chest. Neuro: Level of Consciousness is awake, alert, obeys commands, Oriented to person, place, time. Respiratory: Airway is patent Respiratory effort is even, unlabored, Respiratory pattern is regular, symmetrical. 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 - Infectious Disease History:: Denies. - Social history:: Smoking status: Patient denies any tobacco usage or history of. Screenin:02 [facility] ED Fall Risk Assessment (Adult) History of falling in the last 3 months, jb4 including since admission No falls in past 3 months (0 pts) Confusion or Disorientation No (0 pts). Abuse screen: Denies threats or abuse. Nutritional screening: No deficits noted. Tuberculosis screening: No symptoms or risk factors identified. Assessment: 19:02 General: Appears in no apparent distress. uncomfortable, Behavior is calm, cooperative, jb4 agitated. Pain: Complains of pain in low back area, chest and abdomen Pain does not radiate. Pain currently is 8 out of 10 on a pain scale. Neuro: Level of Consciousness is awake, alert, obeys commands, Oriented to person, place, time, situation. Cardiovascular: Patient's skin is warm and dry. Respiratory: Airway is patent Respiratory effort is even, unlabored, Respiratory pattern is regular, symmetrical. GI: Abdomen is flat, non-distended, Reports diarrhea, nausea, vomiting. Derm: Skin is intact, Skin is pink, warm \T\ dry. 20:08 Reassessment: Patient appears in no apparent distress at this time. Patient and/or jb4 family updated on plan of care and expected duration. Pain level reassessed. Patient is alert, oriented x 3, equal unlabored respirations, skin warm/dry/pink. 21:43 Reassessment: Patient appears in no apparent distress at this time. Patient and/or jb4 family updated on plan of care and expected duration. Pain level reassessed. Patient is alert, oriented x 3, equal unlabored respirations, skin warm/dry/pink. Pt to CT. Vital Signs: 18:28 BP 130 / 82; Pulse 106; Resp 20; Temp 100.1(O); Pulse Ox 97% ; Weight 93.71 kg; Height db 5 ft. 5 in. ; Pain 8/10; 20:30 BP 109 / 64; Pulse 72; Resp 16; Temp 97.8(O); Pulse Ox 100% on R/A; jb4 22:00 BP 108 / 56; Pulse 65; Resp 16; Pulse Ox 100% on R/A; jb4 18:28 Body Mass Index 34.38 (93.71 kg, 165.1 cm) db 18:28 Pain Scale: Adult db ED Course: 18:25 Patient arrived in ED. mr 18:31 Triage completed. db 18:31 Arm band placed on. db 18:38 Shannan Beltre MD is Attending Physician. sd2 19:02 Patient has correct armband on for positive identification. Bed in low position. Call jb4 light in reach. Side rails up X 1. 19:13 Keny Collins, RN is Primary Nurse. jb4 19:31 XRAY Chest (1 view) In Process Unspecified. EDMS 19:35 Initial lab(s) drawn, by me, sent to lab. Inserted saline lock: 20 gauge in left jb4 antecubital area, using aseptic technique. Blood collected. 20:28 Attending Physician role handed off by Shannan Beltre MD estella 20:28 Rafat Lipscomb MD is Attending Physician. estella 20:36 EKG done, by ED staff. vk 20:37 Warm blanket given. vk 20:47 Test, Urine Sent. jb4 20:47 Urinalysis w/ reflexes Sent. jb4 21:39 Lactate w/ 2H reflex if indic. Sent. jb4 21:39 Blood Culture Adult (2) Sent. jb4 21:43 Provided Education on: plan of care. jb4 21:45 CT Stone Protocol In Process Unspecified. EDMS 21:58 Ilya Banks MD is Referral Physician. estella 22:22 No provider procedures requiring assistance completed. IV discontinued, intact, jb4 bleeding controlled, No redness/swelling at site. Pressure dressing applied. Administered Medications: 20:00 Drug: Ondansetron IVP 4 mg IVP once; over 2 minutes Route: IVP; Site: left antecubital; jb4 20:00 Drug: Ibuprofen PO 800 mg PO once Route: PO; jb4 20:05 Drug: NS 0.9% IV 500 ml IV at bolus once Route: IV; Rate: bolus; Site: left antecubital;jb4 21:39 Drug: NS 0.9% IV 1000 ml IV at 1 bolus Per protocol; 1000 mL bolus Route: IV; Rate: 1 jb4 bolus; Site: left antecubital; 22:23 Follow up: Response: No adverse reaction; IV Status: Order to discontinue infusion; IV jb4 Intake: 200ml 21:39 Drug: Rocephin IV 1 grams IV at per protocol once; Given slow IV push per pharmacy jb4 instructions Route: IV; Rate: per protocol; Site: left antecubital; 22:23 Follow up: Response: No adverse reaction jb4 22:14 Drug: Ciprofloxacin PO 500 mg PO once Route: PO; jb4 22:23 Follow up: Response: Medication administered at discharge. jb4 22:14 Drug: metroNIDAZOLE PO 500 mg PO once Route: PO; jb4 22:23 Follow up: Response: Medication administered at discharge. jb4 Medication: 19:02 VIS not applicable for this client. jb4 Intake: 22:23 IV: 200ml; Total: 200ml. jb4 Outcome: 21:57 Discharge ordered by . estella 22:22 Discharged to home ambulatory, with family, jb4 22:22 Condition: stable 22:22 Discharge instructions given to patient, Instructed on discharge instructions, follow up and referral plans. medication usage, Demonstrated understanding of instructions, follow-up care, medications, Prescriptions given X 5 22:24 Patient left the ED. jb4 Signatures: Dispatcher [employer] EDMS Rafat Lipscomb MD MD cha Rivera Taylor, Reg Reg mr Keny Collins, RN RN jb4 Shannan Beltre MD MD sd2 Candy Khan, RN RN Elisabet Vazquez Corrections: (The following items were deleted from the chart) 22:22 20:30 BP 109 / 64; Pulse 72bpm; Resp 16bpm; Pulse Ox 100% RA; jb4 jb4
[2023-07-13] MEDS ORDERED: metroNIDAZOLE 500 MG TABLET ONE (22:05)
[2023-07-13] MEDS ORDERED: CIPROFLOXACIN HCL 500 MG TAB ONE (22:06)
[2023-07-13 22:33] VITALS: TEMP 97.8; O2SAT 100
[2023-07-13 23:00] VITALS: BP 108/56
--- NOTE | 2023-07-14 14:36 | EKG ---
Test Date: 2023-07-13 Test Time: 20:30:39 Space Sciences Director: BERNARDO MEASUREMENT RESULTS: Intervals: Rate: 69 [place]: 158 QRSD: 86 QT: 378 QTc: 405 [place]: P: 68 [place]: 158 QRS: 24 T: 43 INTERPRETIVE STATEMENTS: Normal sinus rhythm with sinus arrhythmia Normal ECG Compared to ECG 07/13/2023 19:23:13 No significant changes Electronically Signed On 07-14-23 14:35:25 CDT by Dominic Conde
--- NOTE | 2023-07-14 14:37 | EKG ---
Test Date: 2023-07-13 Test Time: 19:23:13 Allergy And Immunology Chief: JUAN MEASUREMENT RESULTS: Intervals: Rate: 78 MO: 164 QRSD: 170 QT: 378 QTc: 430 [place]: P: 59 MO: 164 QRS: 36 T: 203 INTERPRETIVE STATEMENTS: Normal sinus rhythm Nonspecific intraventricular block Abnormal ECG Compared to ECG 04/01/2021 00:36:23 No significant changes Electronically Signed On 07-14-23 14:35:30 CDT by Dominic Conde
== END 2023-07-13 22:24 | disposition home or self-care (01) ==
LOC: ER 18:24
DX: R50.9 Fever, unspecified (principal); R30.0 Dysuria; R10.84 Generalized abdominal pain; K52.9 Noninfective gastroenteritis and colitis, unspecified; Z11.52 Encounter for screening for COVID-19
CPT/HCPCS: 36415; 71045; 74176; 76377; 80053; 81001; 81025; 83605; 83690; 83735; 84484; 85025; 87040; 87804; 87811; 93005; 96361; 96374; 96375; 99284; J0696; J2405; J7030; J7040

== ENCOUNTER 2024-01-10 18:04 | Emergency (ER) | payer OTHER, SELFPAY ==
--- OUTSIDE RECORDS SUMMARY | 2024-01-10 18:08 | XMS REPORT | Continuity of Care Document ---
Author Name Unknown Organization [facility] [place] Address [address] [place] [address] Care Team Providers Care Trimmer Operator Name Role Phone Patito Almonte MD Primary Care Provider [phone] Social History Smoking Status as of 01/10/2024 Tobacco Use Types Packs/Day Years Used Date Smoking Tobacco: Never Assessed Sex and Gender Information Value Date Recorded Sex Assigned at Not on file Gender Identity Not on file Sexual Orientation Not on file after 01/10/2023 Plan of Treatment Not on file after 01/10/2023 Care Teams Trimmer Operator Relationship Specialty Start Date End Date Patito Almonte MD [employer] [place] [address] [email or web address] PCP - General Gastroenterology, Hepatology and Nutrition 11/21/18 after 01/10/2023
[2024-01-10] MEDS ORDERED: NA CHLORIDE 0.9% 1,000 ML ONE (19:25)
[2024-01-10] MEDS ORDERED: ONDANSETRON 4 MG/2 ML VIAL ONE (19:25)
[2024-01-10 19:33] LABS: Specific Gravity 1.008 (1.005-1.030)
[2024-01-10 19:34] LABS: Absolute Basophils 0.1 K/uL (0-0.5); Absolute Eosinophils 0.1 K/uL (0-0.5); Absolute Lymphocytes (CBC) 1.8 K/uL (0.7-4.9); Absolute Monocytes 0.6 K/uL (0.1-1.3); Absolute Neutrophil 3.3 K/uL (1.8-8.0); Basophils % 1.2 % (0-1.3); Eosinophils % 2.3 % (0-4.4); Hematocrit 40.1 % (36.0-45.0); Hemoglobin 13.6 g/dL (12.0-15.0); Lymphocytes % 30.3 % (15.3-44.8); MCH 28.7 pg (27.0-35.0); MCHC 33.9 g/dL (32.0-36.0); MCV 84.6 fL (80-100); MPV 6.9 fL (7.6-11.3); Monocytes % 10.8 % (3.3-12.3); Neutrophils % 55.4 % (41.7-73.7); Nucleated Red Blood Cells % 0.1 % (0-0); Platelets 301 thou/uL (152-406); RBC Red Blood Cell Count 4.74 M/uL (3.86-4.86); Red Cell Distribution Width 14.4 % (12.1-15.2)
[2024-01-10 19:39] LABS: Specific Gravity 1.008 (1.005-1.030); Sqamous Epithelial <5 /HPF (None Seen); Urine Bacteria <20 /HPF (<20); Urine Bilirubin NEGATIVE (Negative); Urine Blood Negative (Negative); Urine Clarity Turbid (Clear); Urine Color Light-Yellow (Yellow); Urine Crystals Unidentified Few /HPF (None Seen); Urine Culture Reflex Order NOT NEEDED; Urine Glucose NEGATIVE (Negative); Urine Ketones NEGATIVE (Negative); Urine Microscopic Reflex YN ORDER UMIC; Urine Mucus Slight /HPF (None Seen); Urine Nitrite NEGATIVE (Negative); Urine Protein NEGATIVE (Negative); Urine RBC <5 /HPF (None Seen); Urine Urobilinogen Normal (Normal)
[2024-01-10 19:48] LABS: Albumin 4.1 g/dL (3.4-5.0); Anion Gap 6.7 mEq/L (5.0-15.0); Bilirubin Total 1.2 mg/dL (0.2-1.0); Globulin 4.3 g/dL (2.3-3.5); Potassium 3.7 mEq/L (3.5-5.1); Protein, Total 8.4 g/dL (6.4-8.2)
--- NOTE | 2024-01-10 19:59 | RAD REPORT ---
EXAMINATION: CT ABDOMEN AND PELVIS WITH CONTRAST CLINICAL INDICATION: ABD PAIN TECHNIQUE: CT abdomen and pelvis was performed, after the administration of IV contrast, as per [facility] protocol. Axial, sagittal and coronal reconstructions were obtained. One or more of the following dose reduction techniques were used: Automated exposure control, adjustment of the mA and k V according to patient size, and iterative reconstruction. Unless otherwise specified, incidental findings do not require dedicated imaging follow-up. COMPARISON: No prior exam. FINDINGS: LOWER CHEST: The visualized lung bases are clear. LIVER: Mild fatty liver is present. No focal lesion or biliary dilatation is seen. Cholecystectomy clips. SPLEEN: Normal size. No focal lesion. PANCREAS: No mass, ductal dilation, or stanley-pancreatic fluid. ADRENALS: Normal; no mass. KIDNEYS: Normal size and contour. No hydronephrosis. Small benign cyst right kidney. GASTROINTESTINAL TRACT: No evidence of free air, significant intra-abdominal free fluid, bowel obstru ction or abscess. APPENDIX: Normal appendix. LYMPH NODES: No lymphadenopathy. MUSCULOSKELETAL: No acute or suspicious osseous abnormality. ADDITIONAL FINDINGS: 3.6 cm right adnexal cystic lesion. IMPRESSION: No acute or concerning abnormalities seen in the abdomen or pelvis.
--- NOTE | 2024-01-10 20:08 | ER ---
Nurse's Notes [facility] Name: Marilyn Cardoza Age: 33 yrs Sex: Female : 1990 Arrival Date: 01/10/2024 Time: 18:04 Bed 5 Private MD: Diagnosis: Noninfective gastroenteritis and colitis, unspecified Presentation: 01/09 18:19 Chief complaint: Patient states: Seen at urgent care last week and diagnosed with cm10 stomach virus and has not been feeling better. Pt states that she has continued to have diarrhea and vomiting with abdominal pain and low back pain. Coronavirus screen: Client denies travel out of the [place] in the last 14 days. Ebola Screen: Patient denies travel to an Ebola-affected area in the 21 days before illness onset. No symptoms or risks identified at this time. Initial Sepsis Screen: Does the patient meet any 2 criteria? No. Patient's initial sepsis screen is negative. Does the patient have a suspected source of infection? No. Patient's initial sepsis screen is negative. Risk Assessment: Do you want to hurt yourself or someone else? Patient reports no desire to harm self or others. Onset of symptoms was January 10, 2024. 18:19 Method Of Arrival: Ambulatory cm10 18:19 Acuity: HERMINIA 3 cm10 Triage Assessment: 18:22 General: Appears in no apparent distress. uncomfortable, Behavior is calm, cooperative. cm10 Neuro: No deficits noted. Level of Consciousness is awake, alert, obeys commands, Oriented to person, place, time, situation, Appropriate for age. Respiratory: No deficits noted. Airway is patent Respiratory effort is even, unlabored, Respiratory pattern is regular, symmetrical. 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 - Infectious Disease History:: Denies. - Social history:: Smoking status: unknown. Screenin:[facility] ED Fall Risk Assessment (Adult) History of falling in the last 3 months, bm8 including since admission No falls in past 3 months (0 pts) Confusion or Disorientation No (0 pts) Intoxicated or Sedated No (0 pts) Impaired Gait No (0 pts) Mobility Assist Device Used No (0 pt) Altered Elimination No (0 pt) Score/Fall Risk Level 0 - 2 = Low Risk Oriented to surroundings, Maintained a safe environment, Educated pt \T\ family on fall prevention, incl call for assistance when getting out of bed, Assessed \T\ reinforced patient's understanding of fall precautions, Hourly rounding (assess needs \T\ fall precautionary measures) done, Used ambulatory aids as needed (educated on \T\ assisted with), Used gait belt as appropriate. Abuse screen: Denies threats or abuse. Nutritional screening: No deficits noted. Tuberculosis screening: No symptoms or risk factors identified. Assessment: 19:32 Reassessment: Patient appears in no apparent distress at this time. Patient and/or bm8 family updated on plan of care and expected duration. Pain level reassessed. Patient is alert, oriented x 3, equal unlabored respirations, skin warm/dry/pink. General: Appears in no apparent distress. comfortable, Behavior is calm, cooperative, appropriate for age. Pain: Complains of pain in back and abdomen Pain currently is 3 out of 10 on a pain scale. Neuro: No deficits noted. Level of Consciousness is awake, alert, obeys commands, Oriented to person, place, time, situation, Appropriate for age. Cardiovascular: Denies chest pain, Capillary refill < 3 seconds in bilateral fingers toes. Respiratory: Airway is patent Respiratory effort is even, unlabored, Respiratory pattern is regular, symmetrical. GI: Abdomen is flat, non-distended, Bowel sounds present X 4 quads. Abd is soft and non tender X 4 quads. Reports lower abdominal pain, upper abdominal pain, nausea, Pain is 3 out of 10 on a pain scale. : No signs and/or symptoms were reported regarding the genitourinary system. EENT: No signs and/or symptoms were reported regarding the EENT system. Derm: No signs and/or symptoms reported regarding the dermatologic system. Musculoskeletal: No signs and/or symptoms reported regarding the musculoskeletal system. 20:49 Reassessment: Patient appears in no apparent distress at this time. Patient and/or bm8 family updated on plan of care and expected duration. Pain level reassessed. Patient is alert, oriented x 3, equal unlabored respirations, skin warm/dry/pink. Patient denies pain at this time. Patient states feeling better. Patient states symptoms have improved. Vital Signs: 18:19 BP 136 / 82; Pulse 76; Resp 18; Temp 98.7(O); Pulse Ox 100% on R/A; Weight 96.16 kg; cm10 Height 5 ft. 5 in. ; Pain 9/10; 19:32 BP 114 / 74; Pulse 60; Resp 17; Temp 98.7; Pulse Ox 100% ; Pain 3/10; bm8 20:49 BP 117 / 81; Pulse 64; Resp 17; Temp 98.7; Pulse Ox 100% ; Pain 0/10; bm8 18:19 Body Mass Index 35.28 (96.16 kg, 165.1 cm) cm10 18:19 Pain Scale: Adult cm10 19:32 Pain Scale: Adult bm8 20:49 Pain Scale: Adult bm8 Chayo Coma Score: 19:32 Eye Response: spontaneous(4). Motor Response: obeys commands(6). Verbal Response: bm8 oriented(5). Total: 15. 20:49 Eye Response: spontaneous(4). Motor Response: obeys commands(6). Verbal Response: bm8 oriented(5). Total: 15. ED Course: 18:11 Patient arrived in ED. ra3 18:20 Tanvi Larry FNP-C is PHCP. kb 18:20 Marlene Lazar is Attending Physician. kb 18:22 Triage completed. cm10 18:22 Arm band placed on right wrist. Patient placed in waiting room. cm10 18:23 Tanvi Larry FNP-C is PHCP. kb 18:23 Marlene Lazar is Attending Physician. kb 19:16 Chris Francis, RN is Primary Nurse. bm8 19:32 Patient has correct armband on for positive identification. Bed in low position. Call bm8 light in reach. Side rails up X 1. Client placed on continuous cardiac and pulse oximetry monitoring. NIBP monitoring applied. Pulse ox on. NIBP on. Door closed. Noise minimized. Pillow given. Verbal reassurance given. Head of bed elevated. 19:32 No provider procedures requiring assistance completed. Initial lab(s) drawn, by jay jay parekh sent to lab. Urine collected: clean catch specimen, clear. Inserted saline lock: 20 gauge in left antecubital area, using aseptic technique. Blood collected. Flushed with 10 mL NS. Patient maintains SpO2 saturation greater than 95% on room air. 19:54 CT Abd/Pelvis - IV Contrast Only In Process Unspecified. EDMS 20:49 Provided Education on: post er care. bm8 20:49 IV discontinued, intact, bleeding controlled, No redness/swelling at site. Pressure bm8 dressing applied. Administered Medications: 19:31 Drug: Ondansetron IVP 4 mg IVP once; over 2 minutes Route: IVP; Site: left antecubital; bm8 20:49 Follow up: Response: No adverse reaction bm8 19:32 Drug: NS 0.9% IV 1000 ml IV at 1000 ml once; to be given as a bolus over 60 minutes bm8 Route: IV; Rate: 1000 ml; Site: left antecubital; 20:49 Follow up: Response: No adverse reaction; IV Status: Completed infusion; IV Intake: bm8 1000ml Medication: 19:32 VIS not applicable for this client. bm8 Intake: 20:49 IV: 1000ml; Total: 1000ml. bm8 Outcome: 20:07 Discharge ordered by MD. lópez 20:49 Discharged to home ambulatory, bm8 20:49 Condition: stable 20:49 Discharge instructions given to patient, family, Instructed on discharge instructions, follow up and referral plans. medication usage, safety practices, Demonstrated understanding of instructions, follow-up care, medications, Prescriptions given X 2, 20:50 Patient left the ED. bm8 Signatures: Dispatcher [employer] EDHI Tanvi Larry, MARIZOL PAGE-Azul Andrade, RN RN cm10 Magali Valladares ra3 Chris Francis, RN RN bm8
--- NOTE | 2024-01-10 20:08 | EDPHYS ---
Physician Documentation [facility] Name: Marilyn Cardoza Age: 33 yrs Sex: Female : 1990 Arrival Date: 01/10/2024 Time: 18:04 Bed 5 Private MD: ED Physician Marlene Lazar HPI: 01/09 20:03 This 33 yrs old Female presents to ER via Ambulatory with complaints of Flu Symptoms - kb Sent by next level. 20:05 Pt reports nausea, vomiting, diarrhea, abd pain and low back pain that started one week kb ago. Was diagnosed with a virus last week at and was told to come to the ER for continued symptoms. . 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 - Infectious Disease History:: Denies. - Social history:: Smoking status: unknown. ROS: 20:02 Constitutional: As per HPI kb Exam: 20:02 Constitutional: This is a well developed, well nourished patient who is awake, alert, kb and in no acute distress. Head/Face: Normocephalic, atraumatic. ENT: Moist Mucous membranes Cardiovascular: Regular rate Respiratory: Respirations even and unlabored. No increased work of breathing. Talking in full sentences Skin: Warm, dry with normal turgor. Normal color. MS/ Extremity: Pulses equal, no cyanosis. Neurovascular intact. Full, normal range of motion. Neuro: Awake and alert, GCS 15, oriented to person, place, time, and situation. 20:03 Abdomen/GI: Inspection: abdomen appears normal, Bowel sounds: normal, Palpation: soft, kb in all quadrants, mild abdominal tenderness, in the left upper quadrant and left lower quadrant, Vital Signs: 18:19 BP 136 / 82; Pulse 76; Resp 18; Temp 98.7(O); Pulse Ox 100% on R/A; Weight 96.16 kg; cm10 Height 5 ft. 5 in. ; Pain 9/10; 19:32 BP 114 / 74; Pulse 60; Resp 17; Temp 98.7; Pulse Ox 100% ; Pain 3/10; bm8 20:49 BP 117 / 81; Pulse 64; Resp 17; Temp 98.7; Pulse Ox 100% ; Pain 0/10; bm8 18:19 Body Mass Index 35.28 (96.16 kg, 165.1 cm) cm10 18:19 Pain Scale: Adult cm10 19:32 Pain Scale: Adult bm8 20:49 Pain Scale: Adult bm8 Gifford Coma Score: 19:32 Eye Response: spontaneous(4). Motor Response: obeys commands(6). Verbal Response: bm8 oriented(5). Total: 15. 20:49 Eye Response: spontaneous(4). Motor Response: obeys commands(6). Verbal Response: bm8 oriented(5). Total: 15. MDM: 18:23 Medical Screening Exam initiated kb 20:03 Differential diagnosis: flu, gastroenteritis, covid, dehydration, abnormal kb electrolytes. Data reviewed: vital signs, nurses notes. Counseling: I had a detailed discussion with the patient and/or guardian regarding the historical points, exam findings, and any diagnostic results supporting the discharge/admit diagnosis, lab results, radiology results, the need for outpatient follow up, a family practitioner, to return to the emergency department if symptoms worsen or persist or if there are any questions or concerns that arise at home. 01/09 18:23 Order name: CBC with Diff; Complete Time: 19:39 cm10 01/09 18:23 Order name: CMP; Complete Time: 19:54 cm10 01/09 18:23 Order name: Lipase; Complete Time: 19:54 cm10 01/09 18:23 Order name: Test, Urine; Complete Time: 19:39 cm10 01/09 18:23 Order name: Urinalysis w/ reflexes; Complete Time: 19:39 cm10 01/09 18:28 Order name: CT Abd/Pelvis - IV Contrast Only; Complete Time: 20:01 kb 01/09 18:23 Order name: IV Saline Lock; Complete Time: 19:32 cm10 01/09 18:23 Order name: Labs collected and sent; Complete Time: 19:32 cm10 Administered Medications: 19:31 Drug: Ondansetron IVP 4 mg IVP once; over 2 minutes Route: IVP; Site: left antecubital; bm8 20:49 Follow up: Response: No adverse reaction bm8 19:32 Drug: NS 0.9% IV 1000 ml IV at 1000 ml once; to be given as a bolus over 60 minutes bm8 Route: IV; Rate: 1000 ml; Site: left antecubital; 20:49 Follow up: Response: No adverse reaction; IV Status: Completed infusion; IV Intake: bm8 1000ml Disposition: 20:11 Co-signature as Attending Physician, Marlene Lazar I agree with the assessment ci and plan of care. I reviewed the patient's care provided by the Advanced Practice Provider and agree with the diagnosis and treatment plan. Disposition Summary: 01/10/24 20:07 Discharge Ordered Notes: Location: Home kb Condition: Stable kb Diagnosis - Noninfective gastroenteritis and colitis, unspecified kb Followup: kb - With: Emergency Department - When: As needed - Reason: Worsening of condition Followup: kb - With: Private Physician - When: 2 - 3 days - Reason: Recheck today's complaints, Continuance of care, Re-evaluation by your physician Discharge Instructions: - Discharge Summary Sheet kb - Food Choices to Help Relieve Diarrhea, Adult kb - Viral Gastroenteritis, Adult, [id number] kb Forms: - Medication Reconciliation Form kb - Antibiotic Education kb - Prescription Opioid Use kb - Patient Portal Instructions kb - Leadership Thank You Letter kb Prescriptions: - Zofran 4 mg Oral tablet - take 1 tablet ORAL route every 6 hours As needed; 12 tablet; Refills: 0, kb Product Selection Permitted - dicyclomine 20 mg Oral tablet - take 1 tablet ORAL route 4 times per day As needed; 20 tablet; Refills: 0, kb Product Selection Permitted Signatures: Dispatcher [employer] Tanvi Teran, MARIZOL PAGE-Azul Andrade, RN RN cm10 LorenauMarlene Brad, RN RN bm8 Corrections: (The following items were deleted from the chart) 20:06 20:03 Abdomen/GI: Inspection: abdomen appears normal, Bowel sounds: normal, Palpation: kb soft, in all quadrants, mild abdominal tenderness, in the right lower quadrant and left lower quadrant, kb
[2024-01-10 20:56] VITALS: TEMP 98.7; O2SAT 100
[2024-01-10 20:59] VITALS: BP 117/81
== END 2024-01-10 20:50 | disposition home or self-care (01) ==
LOC: ER 18:04
DX: K52.9 Noninfective gastroenteritis and colitis, unspecified (principal)
CPT/HCPCS: 85025; 81001; 36415; 81025; 83690; 80053; 74177; Q9967; J2405; J7030; 96361; 96374; 99284